=== PATIENT | female | born 1960 | race African-American/Black ===

== ENCOUNTER 2018-01-29 15:53 | Inpatient (IN) | payer OTHER, BC ==
[2018-01-29 17:06] LABS: Absolute Lymphocytes (CBC) 0.6 K/uL (0.7-4.9); Absolute Monocytes 0.9 K/uL (0.1-1.3); Absolute Neutrophil 7.9 K/uL (1.8-8.0); Basophils % 0.9 % (0-1.3); Eosinophils % 4.6 % (0-4.4); Hematocrit 34.2 % (36.0-45.0); Lymphocytes % 6.4 % (15.3-44.8); MCH 26.3 pg (27.0-35.0); MCV 80.4 fL (80-100); MPV 8.6 fL (7.6-11.3); Monocytes % 8.7 % (3.3-12.3); RBC Red Blood Cell Count 4.26 M/uL (3.86-4.86)
[2018-01-29 17:09] LABS: Protime INR 1.13
[2018-01-29 17:14] LABS: Potassium 3.2 mEq/L (3.6-5.0)
[2018-01-29 17:20] LABS: Albumin 3.3 g/dL (3.2-5.5); Bilirubin Direct 0.1 mg/dL (0-0.2); Bilirubin Total 0.7 mg/dL (0.3-1.2); Magnesium 1.9 mg/dL (1.8-2.5); Protein, Total 6.8 g/dL (6.0-8.3)
--- NOTE | 2018-01-29 17:58 | RAD REPORT ---
EXAM DESCRIPTION: RAD - Chest Single View - 01/29/2018 5:39 pm CLINICAL HISTORY: Chest pain. COMPARISON: 10/23/2017 FINDINGS: Portable technique limits examination quality. Mild interstitial pulmonary edema seen. The heart is mildly enlarged in size. No displaced fractures. IMPRESSION: Mild CHF versus volume overload pattern.
[2018-01-29 18:19] LABS: CKMB Creatine Kinase MB 3.8 ng/ml (0.3-4.0)
--- NOTE | 2018-01-29 18:19 | RAD REPORT ---
EXAM DESCRIPTION: CT - Head Brain Wo Cont - 01/29/2018 6:07 pm CLINICAL HISTORY: Altered consciousness COMPARISON: 08/12/2013, 02/21/2010 TECHNIQUE: All CT scans are performed using dose optimization technique as appropriate and may inclu de automated exposure control or mA/KV adjustment according to patient size. FINDINGS: No intracranial hemorrhage, hydrocephalus or extra-axial fluid collection.Moderate general ized brain atrophy is present with moderate periventricular and deep white matter chronic microvascul ar ischemic changes.No areas of brain edema or evidence of midline shift. 8 mm hyperdensity in the ci rcle of [place] region appears stable as far back as a 2009 study. The paranasal sinuses and mastoids are clear. The calvarium is intact. IMPRESSION: No acute intracranial abnormality.
--- NOTE | 2018-01-29 18:49 | EDPHYS ---
Physician Documentation [facility] Name: Mulu Hutson Age: 57 yrs Sex: Female : 1960 Arrival Date: 01/29/2018 Time: 15:58 Bed 5 Private MD: ED Physician Giovanni Griffin HPI: 01/29 16:24 This 57 yrs old Black Female presents to ER via EMS with complaints of Leg Pain - Right.angelito 16:24 The patient presents with pain, that is chronic. The complaints affect the medial angelito aspect of right calf. Context: The problem was sustained at an unknown site. Onset: The symptoms/episode began/occurred 5 day(s) ago. Modifying factors: The symptoms are alleviated by nothing. the symptoms are aggravated by nothing. Associated signs and symptoms: The patient has no apparent associated signs or symptoms. Treatment prior to arrival includes: no previous treatment. ams, after dialysis. Historical: - Allergies: 16:05 Alprazolam; sv 16:05 Aspirin; sv 16:05 Betadine; sv 16:05 Codeine; sv 16:05 Morphine; sv 16:05 PENICILLINS; sv 16:05 Sulfa (Sulfonamide Antibiotics); sv 16:05 Tegretol; sv 16:05 Zantac; sv - PMHx: 16:05 Cutaneous abscess of right lower limb; Diabetes - IDDM; Dialysis; Hypothyroidism; sv - PSHx: 16:05 kidney transplants; Appendectomy; Cholecystectomy; sv - Immunization history:: Adult Immunizations up to date. - Family history:: not pertinent. - Social history:: Smoking status: Patient/guardian denies using tobacco. ROS: 16:24 Constitutional: Negative for fever, chills, and weight loss, Eyes: Negative for injury, angelito pain, redness, and discharge, ENT: Negative for injury, pain, and discharge, Neck: Negative for injury, pain, and swelling, Cardiovascular: Negative for chest pain, palpitations, and edema, Respiratory: Negative for shortness of breath, cough, wheezing, and pleuritic chest pain, Abdomen/GI: Negative for abdominal pain, nausea, vomiting, diarrhea, and constipation, Back: Negative for injury and pain, : Negative for injury, bleeding, discharge, and swelling, Skin: Negative for injury, rash, and discoloration, Psych: Negative for depression, anxiety, suicide ideation, homicidal ideation, and hallucinations, Allergy/Immunology: Negative for hives, rash, and allergies, Endocrine: Negative for neck swelling, polydipsia, polyuria, polyphagia, and marked weight changes, Hematologic/Lymphatic: Negative for swollen nodes, abnormal bleeding, and unusual bruising. 16:24 : Positive for 16:24 MS/extremity: Positive for laceration, of the medial aspect of right calf. 16:24 Neuro: Positive for altered mental status, resolved. Exam: 16:24 Constitutional: This is a well developed, well nourished patient who is awake, alert, angelito and in no acute distress. Head/Face: Normocephalic, atraumatic. Eyes: Pupils equal round and reactive to light, extra-ocular motions intact. Lids and lashes normal. Conjunctiva and sclera are non-icteric and not injected. Cornea within normal limits. Periorbital areas with no swelling, redness, or edema. ENT: Nares patent. No nasal discharge, no septal abnormalities noted. Tympanic membranes are normal and external auditory canals are clear. Oropharynx with no redness, swelling, or masses, exudates, or evidence of obstruction, uvula midline. Mucous membranes moist. Neck: Trachea midline, no thyromegaly or masses palpated, and no cervical lymphadenopathy. Supple, full range of motion without nuchal rigidity, or vertebral point tenderness. No Meningismus. Chest/axilla: Normal chest wall appearance and motion. Nontender with no deformity. No lesions are appreciated. Cardiovascular: Regular rate and rhythm with a normal S1 and S2. No gallops, murmurs, or rubs. Normal PMI, no JVD. No pulse deficits. Respiratory: Lungs have equal breath sounds bilaterally, clear to auscultation and percussion. No rales, rhonchi or wheezes noted. No increased work of breathing, no retractions or nasal flaring. Abdomen/GI: Soft, non-tender, with normal bowel sounds. No distension or tympany. No guarding or rebound. No evidence of tenderness throughout. Back: No spinal tenderness. No costovertebral tenderness. Full range of motion. Skin: Warm, dry with normal turgor. Normal color with no rashes, no lesions, and no evidence of cellulitis. MS/ Extremity: Pulses equal, no cyanosis. Neurovascular intact. Full, normal range of motion. Neuro: Awake and alert, GCS 15, oriented to person, place, time, and situation. Cranial nerves II-XII grossly intact. Motor strength 5/5 in all extremities. Sensory grossly intact. Cerebellar exam normal. Normal gait. Psych: Awake, alert, with orientation to person, place and time. Behavior, mood, and affect are within normal limits. 16:26 Musculoskeletal/extremity: Tendon exam: DVT Exam: No signs of deep vein thrombosis. no angelito pain, no swelling, no tenderness, negative Homans' sign noted on exam, no appreciated bluish discoloration, no erythema, no increased warmth. 17:34 Musculoskeletal/extremity: 2.5 x 2.5 medial wound, mild exudate, good heaiing, no [facility] active bleeding. Vital Signs: 16:00 BP 143 / 88; Pulse 105; Resp 19; Pulse Ox 97% ; sv 16:05 Temp 98.4(O); sv 17:03 BP 146 / 84; Pulse 101; Resp 14; Pulse Ox 100% ; mh5 18:14 BP 143 / 82; Pulse 106 MON; Resp 20; Pulse Ox 99% on R/A; sv 18:56 BP 148 / 95; Pulse 110; Resp 20; Pulse Ox 99% ; sv 19:29 Weight 84.5 kg; jd3 19:32 BP 142 / 74; Pulse 95; Resp 17 S; Pulse Ox 99% on R/A; Pain 0/10; jd3 20:13 BP 138 / 74; Pulse 94; Resp 19 S; Pulse Ox 98% on R/A; Pain 0/10; jd3 Procedures: 20:00 Peripheral line: by aseptic technique a peripheral line was placed in the left external angelito jugular vein. MDM: 16:12 Patient medically screened. [facility] 16:26 Data reviewed: vital signs, nurses notes, lab test result(s), EKG, radiologic studies, [facility] plain films. 01/29 16:24 Order name: Basic Metabolic Panel; Complete Time: 18:23 [facility] 01/29 16:24 Order name: BNP; Complete Time: 18:23 [facility] 01/29 16:24 Order name: CBC with Diff; Complete Time: 17:33 [facility] 01/29 16:24 Order name: Ckmb; Complete Time: 18:23 [facility] 01/29 16:24 Order name: CPK; Complete Time: 18:23 [facility] 01/29 16:24 Order name: LFT's; Complete Time: 18:23 [facility] 01/29 16:24 Order name: Magnesium; Complete Time: 18:23 [facility] 01/29 16:24 Order name: PT-INR; Complete Time: 17:33 [facility] 01/29 16:24 Order name: Ptt, Activated; Complete Time: 17:33 [facility] 01/29 16:24 Order name: Troponin (emerg Dept Use Only); Complete Time: 18:23 [facility] 01/29 16:24 Order name: XRAY Chest (1 view); Complete Time: 18:23 [facility] 01/29 16:24 Order name: Urine Culture [facility] 01/29 17:53 Order name: TSH ag 01/29 17:55 Order name: Head Brain Wo Cont; Complete Time: 18:23 [facility] 01/29 16:24 Order name: EKG; Complete Time: 16:25 [facility] 01/29 16:24 Order name: Cardiac monitoring; Complete Time: 16:27 [facility] 01/29 16:24 Order name: EKG - Nurse/Tech; Complete Time: 18:08 [facility] 01/29 16:24 Order name: IV Saline Lock; Complete Time: 16:28 [facility] 01/29 16:24 Order name: Labs collected and sent; Complete Time: 18:08 [facility] 01/29 16:24 Order name: O2 Per Protocol; Complete Time: 16:28 [facility] 01/29 16:24 Order name: O2 Sat Monitoring; Complete Time: 16:28 [facility] 01/29 18:54 Order name: CONS Physician Consult [facility] 01/29 18:54 Order name: CONS Physician Consult [facility] 01/29 18:54 Order name: Echo with Doppler [facility] 01/29 16:24 Order name: Wound Care; Complete Time: 18:08 [facility] Administered Medications: 19:31 Drug: Lopressor 5 mg Route: IVP; Site: left jugular; jd3 20:01 Follow up: Response: No adverse reaction ak1 19:31 Drug: Lopressor (metoprolol TARTRATE) 50 mg Route: PO; jd3 19:51 Follow up: Response: No adverse reaction ak1 19:31 Drug: Heparin (PR-Bolus No thrombolytic) - HEParin 60 units/kg {Co-Signature: ak1 jd3 (Angelica Arreaga RN).} Route: IVP; Site: left jugular; 19:51 Follow up: Response: No adverse reaction ak1 19:31 Drug: Heparin (PR Drip) 12 units/kg/hr - (HEParin 32343 units, D5W 500 ml) jd3 {Co-Signature: ak1 (Angelica Arreaga RN).} Route: IV; Rate: calculated rate; Site: left jugular; 20:01 Follow up: IV Status: Infusion continued upon admission ak1 19:31 Drug: ProTONIX 40 mg Route: IVP; Site: left jugular; jd3 19:50 Follow up: Response: No adverse reaction ak1 Disposition: 01/29/18 18:48 Hospitalization ordered by Augie Sam for Inpatient Admission. Preliminary diagnosis are Atrial fibrillation and flutter, Syncope and collapse, Weakness, Type 1 diabetes mellitus, Hypokalemia, End stage renal disease. - Bed requested for Telemetry/MedSurg (observation). - Status is Inpatient Admission. jd3 - Condition is Fair. - Problem is new. - Symptoms have improved. UTI on Admission? No Signatures: Dispatcher [employer] Sepideh Roman, Giovanni Gibson RN, MD MD cha Garcia, Cindy, RN RN cg Davies, Jonathon, RN RN jd3 Krenek, Angelica MENJIVAR ak1 Angelica Arreaga RN ak1
--- NOTE | 2018-01-29 18:49 | ER ---
Nurse's Notes [facility] Name: Mulu Hutson Age: 57 yrs Sex: Female : 1960 Arrival Date: 01/29/2018 Time: 15:58 Bed 5 Private MD: Diagnosis: Atrial fibrillation and flutter;Syncope and collapse;Weakness;Type 1 diabetes mellitus;Hypokalemia;End stage renal disease Presentation: 01/29 15:51 Presenting complaint: EMS states: RLL wound pain. Pt sees Dr Johnson for wound cleaning. sv Dialysis staff stated pt was lethargic and confused. They took off 2.1 kg at HD. A \T\ O x1 person. BS -310, AFib with RVR 90-110s. Pt is asymptomatic. Transition of care: LJ dialysis. Onset of symptoms was January 29, 2018. Care prior to arrival: None. 15:51 Method Of Arrival: EMS: [facility] sv 15:51 Acuity: ALLA 3 sv Triage Assessment: 15:55 General: Appears in no apparent distress. comfortable, obese, well developed, Behavior sv is calm, cooperative, appropriate for age. Pain: Complains of pain in medial aspect of right calf Pain currently is 5 out of 10 on a pain scale. Is intermittent. EENT: No signs and/or symptoms were reported regarding the EENT system. Neuro: Level of Consciousness is awake, alert, obeys commands, Oriented to person, place, time, situation, Moves all extremities. Cardiovascular: Reports. Respiratory: Respiratory effort is even, unlabored, Respiratory pattern is regular, symmetrical. Derm: Skin is normal, black, Pt has dressing to the RLE that was placed by the [facility]. Dressing appears dry and intact. Musculoskeletal: No signs and/or symptoms reported regarding the musculoskeletal system. Historical: - Allergies: 16:05 Alprazolam; sv 16:05 Aspirin; sv 16:05 Betadine; sv 16:05 Codeine; sv 16:05 Morphine; sv 16:05 PENICILLINS; sv 16:05 Sulfa (Sulfonamide Antibiotics); sv 16:05 Tegretol; sv 16:05 Zantac; sv - PMHx: 16:05 Cutaneous abscess of right lower limb; Diabetes - IDDM; Dialysis; Hypothyroidism; sv - PSHx: 16:05 kidney transplants; Appendectomy; Cholecystectomy; sv - Immunization history:: Adult Immunizations up to date. - Family history:: not pertinent. - Social history:: Smoking status: Patient/guardian denies using tobacco. Screenin:05 Abuse screen: Denies threats or abuse. Denies injuries from another. Nutritional sv screening: No deficits noted. Tuberculosis screening: No symptoms or risk factors identified. Fall Risk None identified. Assessment: 17:21 Reassessment: Patient appears in no apparent distress at this time. No changes from sv previously documented assessment. Patient and/or family updated on plan of care and expected duration. Pain level reassessed. Patient is alert, oriented x 3, equal unlabored respirations, skin warm/dry/pink. 18:30 Reassessment: Patient appears in no apparent distress at this time. Patient and/or sv family updated on plan of care and expected duration. Pain level reassessed. Patient is alert, oriented x 3, equal unlabored respirations, skin warm/dry/pink. 19:32 Reassessment: Patient appears in no apparent distress at this time. No changes from jd3 previously documented assessment. Patient and/or family updated on plan of care and expected duration. Pain level reassessed. Patient is alert, oriented x 3, equal unlabored respirations, skin warm/dry/pink. Patient denies pain at this time. Vital Signs: 16:00 BP 143 / 88; Pulse 105; Resp 19; Pulse Ox 97% ; sv 16:05 Temp 98.4(O); sv 17:03 BP 146 / 84; Pulse 101; Resp 14; Pulse Ox 100% ; mh5 18:14 BP 143 / 82; Pulse 106 MON; Resp 20; Pulse Ox 99% on R/A; sv 18:56 BP 148 / 95; Pulse 110; Resp 20; Pulse Ox 99% ; sv 19:29 Weight 84.5 kg; jd3 19:32 BP 142 / 74; Pulse 95; Resp 17 S; Pulse Ox 99% on R/A; Pain 0/10; jd3 20:13 BP 138 / 74; Pulse 94; Resp 19 S; Pulse Ox 98% on R/A; Pain 0/10; jd3 ED Course: 15:58 Patient arrived in ED. sv 15:59 Sepideh Angelo RN is Primary Nurse. sv 16:02 Triage completed. sv 16:05 Arm band placed on right wrist. sv 16:06 Patient has correct armband on for positive identification. Placed in gown. Bed in low sv position. Call light in reach. Side rails up X2. child monitor on. Pulse ox on. NIBP on. Door closed. Head of bed elevated. 16:11 Giovanni Griffin MD is Attending Physician. angelito 16:40 Missed attempt(s): 24 gauge in left hand. Bleeding controlled, band aid applied, sv catheter tip intact. 16:44 EKG done, by technical delivery manager. reviewed by Giovanni Griffin MD. at1 16:50 Initial lab(s) drawn, by ED staff, sent to lab. Inserted saline lock: 20 gauge in left sv EJ, using aseptic technique. ,using aseptic technique. done by Dr Griffin Blood collected. 17:37 XRAY Chest (1 view) In Process Unspecified. EDMS 18:07 Head Brain Wo Cont In Process Unspecified. EDMS 18:08 CT completed. Patient tolerated procedure well. Patient moved to CT via stretcher. sc Patient moved back from CT. 18:44 Augie Sam MD is Hospitalizing Provider. angelito 19:03 Report given to Samuel MENJIVAR. sv 19:05 Primary Nurse role handed off by Sepideh Angelo RN sv 19:29 Samuel Chase RN is Primary Nurse. jd3 19:46 No provider procedures requiring assistance completed. ak1 19:48 Patient admitted, IV remains in place. ak1 Administered Medications: 19:31 Drug: Lopressor 5 mg Route: IVP; Site: left jugular; jd3 20:01 Follow up: Response: No adverse reaction ak1 19:31 Drug: Lopressor (metoprolol TARTRATE) 50 mg Route: PO; jd3 19:51 Follow up: Response: No adverse reaction ak1 19:31 Drug: Heparin (HI-Bolus No thrombolytic) - HEParin 60 units/kg {Co-Signature: ak1 jyunior (Angelica Arreaga RN).} Route: IVP; Site: left jugular; 19:51 Follow up: Response: No adverse reaction ak1 19:31 Drug: Heparin (HI Drip) 12 units/kg/hr - (HEParin 52556 units, D5W 500 ml) jd3 {Co-Signature: akHenri (Angelica Arreaga RN).} Route: IV; Rate: calculated rate; Site: left jugular; 20:01 Follow up: IV Status: Infusion continued upon admission ak1 19:31 Drug: ProTONIX 40 mg Route: IVP; Site: left jugular; jd3 19:50 Follow up: Response: No adverse reaction ak1 Outcome: 18:48 Decision to Hospitalize by Provider. angelito 19:48 Admitted to Tele accompanied by tech, via stretcher, room 427. ak1 19:48 Condition: stable 19:48 Instructed on the need for admit. 20:20 Admitted to Tele with chart, Report called to Naveen chow 20:49 Patient left the ED. jyunior Signatures: Dispatcher [employer] EDMS Sepideh Angelo RN Giovanni Gibson MD MD cha gonzales, Amanda, operations and maintenance manager EKG Tat1 Angelica Arreaga RN RN ak1 Moose Tapia Maria mh5 Davies, Jonathon, RN RN jd3 Amber Krenek RN ak1 Corrections: (The following items were deleted from the chart) 19:48 19:46 Patient transferred, IV remains in place. ak1 ak1
[2018-01-29] MEDS ORDERED: D50W 25 GM/50 ML SYRINGE IV PRN (18:55)
[2018-01-29] MEDS ORDERED: GLUCAGON 1 MG/VIAL IM PRN (18:55)
[2018-01-29] MEDS ORDERED: ACETAMINOPHEN 500 MG TAB PO PRN (19:01)
[2018-01-29] MEDS ORDERED: MAGNESIUM HYDROXIDE 8% 30 ML PO PRN (19:01)
[2018-01-29] MEDS ORDERED: ONDANSETRON 4 MG/2 ML VIAL IV PRN (19:01)
[2018-01-29] MEDS ORDERED: HEPARIN/D5W 25,000 UNIT/500 ML BAG IV ONE (19:11)
[2018-01-29] MEDS ORDERED: HEPARIN 5000 UNIT/ML 1 ML VIAL ONE (19:11)
[2018-01-29] MEDS ORDERED: PANTOPRAZOLE 40 MG INJ ONE (19:13)
[2018-01-29] MEDS ORDERED: METOPROLOL TARTRATE 5 MG/5 ML INJ IV ONE (19:13)
[2018-01-29] MEDS ORDERED: METOPROLOL TAR 50 MG TAB ONE (19:13)
[2018-01-29] MEDS: IPRATROPIUM BROM 0.5MG/2.5ML NEB SCH (20:51)
[2018-01-29] MEDS: ALBUTEROL 2.5 MG/3 ML NEB SOL NEB SCH (20:51)
[2018-01-29] MEDS: INSULIN -REGULAR HUMAN 50 UNIT/0.5 ML ML SQ SCH (21:00)
[2018-01-29 21:02] VITALS: O2SAT 98
[2018-01-29 21:29] VITALS: BMI 33.0
[2018-01-30] MEDS: ALBUTEROL 2.5 MG/3 ML NEB SOL NEB SCH ×4 (01:44→20:00)
[2018-01-30] MEDS: IPRATROPIUM BROM 0.5MG/2.5ML NEB SCH ×2 (01:44→07:12)
[2018-01-30] MEDS ORDERED: NEPRO SHAKE 237 ML CAN PO PRN (02:40)
[2018-01-30] MEDS ORDERED: TRAMADOL 37.5mg/APAP 325mg PER TAB PO PRN (02:40)
[2018-01-30] MEDS ORDERED: ACETAMINOPHEN 500 MG TAB PO PRN (02:40)
[2018-01-30] MEDS ORDERED: LIOTHYRONINE SOD 5 MCG TAB PO SCH (03:00)
[2018-01-30] MEDS ORDERED: METOPROLOL TAR 50 MG TAB PO SCH ×2 (03:09→09:00)
[2018-01-30] MEDS: APIXABAN 2.5 MG TABLET PO SCH ×3 (05:16→21:38)
[2018-01-30 06:05] LABS: Absolute Monocytes 0.7 K/uL (0.1-1.3); Absolute Neutrophil 5.5 K/uL (1.8-8.0); Basophils % 0.8 % (0-1.3); Eosinophils % 7.2 % (0-4.4); Hematocrit 33.1 % (36.0-45.0); Lymphocytes % 12.3 % (15.3-44.8); MCV 81.8 fL (80-100); MPV 9.7 fL (7.6-11.3); RBC Red Blood Cell Count 4.04 M/uL (3.86-4.86)
--- NOTE | 2018-01-30 06:28 | P.HP ---
Certification for Inpatient Patient admitted to: Observation With expected LOS: <2 Midnights Patient will require the following post-hospital care: None Practitioner: I am a practitioner with admitting privileges, knowledge of patient current condition, hospital course, and medical plan of care. Services: Services provided to patient in accordance with Admission requirements found in Title 42 Section 412.3 of the Code of Federal Regulations Patient History Date of Service: 01/29/18 Reason for admission: Right lower extremity pain History of Present Illness: Patient is a 57-year-old female came to the hospital with pain in her right leg. This is chronic. She says it has been going on for quite a while and she gets wound care per Dr. Johnson. She has a dressing on her right leg. There is no significant swelling. She is feels pain that is been going on for quite a while. She also was lethargic during dialysis. She had 2.1 m removed. She became lightheaded and had a near syncopal event. She was brought into the emergency room for further evaluation. In the emergency room she was found to be in AFib but her rate was fairly well controlled. Hemodynamically she was stable. Patient was admitted to the hospital for further evaluation. Allergies alprazolam [From Xanax] Allergy (Verified 11/16/14 08:40) UNK aspirin Allergy (Verified 11/16/14 08:40) UNK carbamazepine [From Tegretol] Allergy (Verified 11/16/14 08:40) UNK codeine Allergy (Verified 11/16/14 08:40) UNK morphine Allergy (Verified 11/16/14 08:40) UNK Penicillins Allergy (Verified 11/16/14 08:40) unknown povidone-iodine [From Betadine] Allergy (Verified 11/16/14 08:40) unknown ranitidine HCl [From Zantac] Allergy (Verified 11/16/14 08:40) UNK soap [From Betadine] Allergy (Verified 11/16/14 08:40) unknown Sulfa (Sulfonamide Antibiotics) Allergy (Verified 11/16/14 08:40) UNK aspirin Allergy (Uncoded 11/16/14 08:40) Unknown catfish Allergy (Uncoded 11/16/14 08:40) unknown codeine Allergy (Uncoded 11/16/14 08:40) Unknown morphine Allergy (Uncoded 11/16/14 08:40) Unknown Home Medications: Apixaban [Eliquis *] 1 tab PO BID 01/30/18 Calcium Carbonate [Tums Regular*] 4 tab PO BEDTIME 01/30/18 Cholecalciferol (Vitamin D3) [Vitamin D3] 1 cap PO DAILY 01/30/18 Cinacalcet HCl [Sensipar] 1 tab PO DAILY 01/30/18 Clarithromycin [Biaxin] 1 tab PO BID 01/30/18 Duloxetine HCl [Duloxetine HCl] 1 cap PO DAILY 01/30/18 Hydrocortisone [Cortef*] 1 tab PO BEDTIME 01/30/18 Hydrocortisone [Cortef*] 2 tab PO DAILY 01/30/18 Liothyronine Sodium [Cytomel] 1 tab PO DAILY 01/30/18 Metoprolol Tartrate [Lopressor] 1 tab PO BID 01/30/18 Nepro Shake [Nepro*] 1 can PO DAILY 01/30/18 Sevelamer Carbonate [Renvela*] 2 tab PO TID 01/30/18 Tramadol HCl/Acetaminophen [Tramadol-Acetaminophn 37.5-325] 1 tab PO Q6HP PRN - Past Medical/Surgical History Has patient received pneumonia vaccine in the past: No Diabetic: Yes -: Kidney disease -: Diabetes-IDDM -: Hypothyroidism -: HTN -: Depression -: Periodontitis, 1990 -: Periodontitis, 1990 -: Pancreatitis, 1997 -: Appy, 1985 -: Choley, 1995 -: Periodontitis, 1990 -: Kidney transplants, 1976 & 1996 - Family History Mother Medical History: Cancer - Social History Smoking Status: Never smoker Alcohol use: No CD- Drugs: No Caffeine use: No Place of Residence: Home Review of Systems 10-point ROS is otherwise unremarkable Physical Examination - Vital Signs Temperature: 98.0 F Blood Pressure: 115/64 Pulse: 78 Respirations: 18 Pulse Ox (%): 97 - Physical Exam General: Alert, In no apparent distress, Oriented x3 HEENT: Atraumatic, PERRLA, Mucous membr. moist/pink, EOMI, Sclerae nonicteric Neck: Supple, 2+ carotid pulse no bruit, No LAD, Without JVD or thyroid abnormality Respiratory: Clear to auscultation bilaterally, Normal air movement Cardiovascular: Irregular heart rate/rhythm, Abnormal S1 S2, Systolic murmur Gastrointestinal: Normal bowel sounds, Soft and benign, Non-distended, No tenderness Musculoskeletal: No clubbing, No swelling, Tenderness Integumentary: Tenderness/swelling Neurological: Normal tone, Sensation intact, Cranial nerves 3-12 intact, Normal affect, Abnormal gait, Abnormal strength Lymphatics: No axilla or inguinal lymphadenopathy - Studies Laboratory Data (last 24 hrs) 01/29/18 16:50: PT 13.4 H, INR 1.13, APTT 28.6 01/29/18 16:50: WBC 10.0, Hgb 11.2 L, Hct 34.2 L, Plt Count 149 L 01/29/18 16:50: B-Natriuretic Peptide 1461 H 01/29/18 16:50: Sodium 134 L, Potassium 3.2 L, BUN 34 H, Creatinine 3.69 H, Glucose 290 H, Magnesium 1.9, Total Bilirubin 0.7, AST 19, ALT 14, Alkaline Phosphatase 467 H Assessment & Plan - Problems (Diagnosis) (1) Near syncope Current Visit: Yes Status: Acute (2) Atrial fibrillation with rapid ventricular response Onset Date: 10/25/17 Current Visit: No Status: Acute (3) Diabetes mellitus Onset Date: 10/25/17 Current Visit: No Status: Chronic (4) ESRD (end stage renal disease) on dialysis Onset Date: 10/25/17 Current Visit: No Status: Chronic (5) Non-healing surgical wound Current Visit: No Status: Chronic - Advance Directives Does patient have a Living Will: No Does patient have a Durable POA for Healthcare: No
[2018-01-30 07:07] LABS: Albumin 2.8 g/dL (3.2-5.5); Bilirubin Total 0.5 mg/dL (0.3-1.2); Phosphorus 3.8 mg/dL (2.5-4.3); Potassium 3.7 mEq/L (3.6-5.0); Protein, Total 5.9 g/dL (6.0-8.3)
[2018-01-30 07:08] LABS: Thyroid Stimulating Hormone 0.02 uIU/mL (0.34-5.60)
[2018-01-30] MEDS: INSULIN -REGULAR HUMAN 50 UNIT/0.5 ML ML SQ SCH ×5 (07:30→21:00)
[2018-01-30] MEDS: INSULIN DETEMIR 100 UNIT/1 ML INSULIN SQ SCH ×2 (08:00→09:04)
[2018-01-30] MEDS: SEVELAMER CARBONATE 800 MG TABLET PO SCH ×4 (08:00→16:43)
--- NOTE | 2018-01-30 08:00 | EKG ---
Test Date: 2018-01-29 Test Time: 16:38:54 Gynecological Assistant: FERMIN MEASUREMENT RESULTS: Intervals: Rate: 99 LA: QRSD: 78 QT: 346 QTc: 444 [place]: P: LA: QRS: 44 T: 147 INTERPRETIVE STATEMENTS: Atrial fibrillation with premature ventricular or aberrantly conducted complexes T wave abnormality, consider lateral ischemia Abnormal ECG Compared to ECG 10/24/2017 06:57:51 Ventricular premature complex(es) now present T-wave abnormality now present Possible ischemia now present Sinus rhythm no longer present Prolonged QT interval no longer present Electronically Signed On 01-30-18 07:59:09 CDT by Thor Obrien
[2018-01-30] MEDS ORDERED: CLARITHROMYCIN 500 MG TABLET PO SCH (09:00)
[2018-01-30] MEDS ORDERED: APIXABAN 2.5 MG TABLET PO SCH (09:00)
--- NOTE | 2018-01-30 09:16 | RAD REPORT ---
EXAM DESCRIPTION: RAD - Abdomen Acute Series - 01/30/2018 9:00 am CLINICAL HISTORY: Abdominal pain COMPARISON: None. FINDINGS: Frontal view of the chest demonstrates clear lungs. No subdiaphragmatic free air. The hear t is mildly enlarged in size. Tortuous thoracic aorta seen. Multiple views of the abdomen demonstrate a nonobstructive bowel-gas pattern. Surgical clips are pres ent on the right. Marked chronic dysplastic changes with dislocation of the left hip seen. IMPRESSION: No acute finding is demonstrated.
--- NOTE | 2018-01-30 10:42 | P.PN ---
Subjective Date of Service: 01/30/18 Primary Care Provider: Dr. Cordero; Nephrology-Dr. Quintanilla Chief Complaint: Right lower extremity pain Subjective: Improving Physical Examination - Vital Signs Temperature: 97.3 F Blood Pressure: 136/66 Pulse: 73 Respirations: 18 Pulse Ox (%): 100 - Physical Exam General: Alert, In no apparent distress, Oriented x3, Cooperative HEENT: Atraumatic Neck: Supple Respiratory: Clear to auscultation bilaterally, Normal air movement Cardiovascular: Regular rate/rhythm Gastrointestinal: Normal bowel sounds, Soft and benign, Non-distended Musculoskeletal: No erythema, No tenderness, No warmth Integumentary: No erythema, No warmth, No cyanosis, Other (Bandage to the right lower ext) Neurological: Normal speech, Normal strength at 5/5 x4 extr, Normal tone, Normal affect - Studies Laboratory Data (last 24 hrs) 01/29/18 16:50: PT 13.4 H, INR 1.13, APTT 28.6 01/29/18 16:50: WBC 10.0, Hgb 11.2 L, Hct 34.2 L, Plt Count 149 L 01/29/18 16:50: B-Natriuretic Peptide 1461 H 01/29/18 16:50: Sodium 134 L, Potassium 3.2 L, BUN 34 H, Creatinine 3.69 H, Glucose 290 H, Magnesium 1.9, Total Bilirubin 0.7, AST 19, ALT 14, Alkaline Phosphatase 467 H Medications List Reviewed: Yes Assessment & Plan - Problems (Diagnosis) (1) Hypertension Current Visit: Yes Status: Chronic Plan: Patient on metoprolol. Will continue with his medication. Qualifiers: Hypertension type: essential hypertension Qualified Code(s): I10 - Essential (primary) hypertension (2) Hypothyroidism Current Visit: Yes Status: Chronic Plan: Will verify and restart home medication Qualifiers: Hypothyroidism type: unspecified Qualified Code(s): E03.9 - Hypothyroidism , unspecified (3) Adrenal insufficiency Current Visit: Yes Status: Chronic Plan: Will continue with her steroid medication. (4) Near syncope Onset Date: 01/30/18 Current Visit: Yes Status: Acute Plan: Patient with near syncope. Patient now back to baseline. Patient came in with atrial fibrillation with RVR. Now in normal sinus rhythm. Cardiology has started Multaq. Patient will need to be monitored overnight. Possible discharge in the morning. Patient on chronic anti coagulation therapy. Will continue with this. Will discuss further with cardiology and nephrology. Echo pending. (5) Atrial fibrillation with rapid ventricular response Onset Date: 01/30/18 Current Visit: No Status: Acute Plan: Patient with history of atrial fibrillation. Rate now controlled and in normal sinus rhythm. Cardiology started Multaq. Will continue to monitor patient on this medication. Patient also on metoprolol and chronic anti coagulation therapy. Will discuss with cardiology. (6) Anemia Onset Date: 10/25/17 Current Visit: No Status: Chronic Plan: This is likely of chronic disease. Will monitor closely. Qualifiers: Anemia type: due to chronic kidney disease Chronic kidney disease stage: on chronic dialysis Qualified Code(s): N18.6 - End stage renal disease; D63.1 - Anemia in chronic kidney disease; D63.1 - Anemia in chronic kidney disease; Z99.2 - Dependence on renal dialysis; Z99.2 - Dependence on renal dialysis; Z99.2 - Dependence on renal dialysis; Z99.2 - Dependence on renal dialysis (7) Diabetes mellitus Onset Date: 01/30/18 Current Visit: No Status: Chronic Plan: Will continue with basal insulin. Will monitor closely. Sliding scale in place. Qualifiers: Diabetes mellitus type: type 2 Diabetes mellitus predatory animal exterminator insulin use: with predatory animal exterminator use Diabetes mellitus complication status: with kidney complications Diabetes mellitus complication detail: with chronic kidney disease Chronic kidney disease stage: on chronic dialysis Qualified Code(s) : E11.22 - Type 2 diabetes mellitus with diabetic chronic kidney disease; N18.6 - End stage renal disease; N18.6 - End stage renal disease; N18.6 - End stage renal disease; N18.6 - End stage renal disease; Z79.4 - terminal computer operator (current) use of insulin; Z79.4 - terminal computer operator (current) use of insulin; Z79.4 - terminal computer operator ( current) use of insulin; Z79.4 - terminal computer operator (current) use of insulin; Z99.2 - Dependence on renal dialysis; Z99.2 - Dependence on renal dialysis; Z99.2 - Dependence on renal dialysis; Z99.2 - Dependence on renal dialysis (8) ESRD (end stage renal disease) on dialysis Onset Date: 01/30/18 Current Visit: No Status: Chronic Plan: Patient gets dialysis Tuesdays, and Saturdays. Nephrology consulted. Will discuss with nephrology. (9) Non-healing surgical wound Onset Date: 01/30/18 Current Visit: No Status: Chronic Plan: Patient is seen by surgery as an outpatient. Patient to continue with wound care. Will verify to see if the patient is taking antibiotic therapy. Qualifiers: Encounter type: subsequent encounter Qualified Code(s): T81.89XD - Other complications of procedures, not elsewhere classified, subsequent encounter Discharge Plan: Home Plan to discharge in: 24 Hours Time Spent Managing Pts Care (In Minutes): 55
[2018-01-30] MEDS: LIOTHYRONINE SOD 5 MCG TAB PO SCH (11:27)
[2018-01-30] MEDS: VITAMIN D 1000 UNIT TAB PO SCH (11:27)
[2018-01-30] MEDS: HYDROCORTISONE 10 MG TAB PO SCH ×3 (11:27→21:39)
[2018-01-30] MEDS ORDERED: EPOETIN ALFA 10,000 UNIT/ML VIAL IV SCH (12:00)
--- NOTE | 2018-01-30 12:36 | EKG ---
Test Date: 2018-01-30 Test Time: 10:26:05 Clinical Research Specialist: FERMIN MEASUREMENT RESULTS: Intervals: Rate: 71 LA: 172 QRSD: 80 QT: 414 QTc: 449 [place]: P: 53 LA: 172 QRS: 32 T: 137 INTERPRETIVE STATEMENTS: Normal sinus rhythm T wave abnormality, consider lateral ischemia Abnormal ECG Compared to ECG 01/29/2018 16:38:54 Atrial fibrillation no longer present Ventricular premature complex(es) no longer present T-wave abnormality still present Possible ischemia still present Electronically Signed On 01-30-18 12:36:08 CDT by Thor Obrien
[2018-01-30] MEDS: CINACALCET HCL 30 MG TAB PO SCH (12:52)
[2018-01-30] MEDS ORDERED: INSULIN DETEMIR 100 UNIT/1 ML INSULIN SQ ONE (13:15)
[2018-01-30] MEDS ORDERED: INSULIN -REGULAR HUMAN 50 UNIT/0.5 ML ML SQ ONE (13:15)
[2018-01-30 13:22] LABS: A1c Component 0.63 mg/dL; Hemoglobin A1c 7.3 % (4-6.0)
[2018-01-30] MEDS ORDERED: SEVELAMER CARBONATE 800 MG TABLET PO SCH (14:00)
--- NOTE | 2018-01-30 15:30 | ECHO ---
HEIGHT: 5 ft 3 in WEIGHT: 186 lb 4.8 oz DATE OF STUDY: 01/30/[address]: Giovanni Griffin MD 2-DIMENSIONAL: YES M.MODE: YES DOPPLER: YES COLOR FLOW: YES TDS: PORTABLE: DEFINITY: BUBBLE STUDY: DIAGNOSIS: CONGESTIVE HEART FAILURE CARDIAC HISTORY: CATHERIZATION: SURGERY: PROSTHETIC VALVE: PACEMAKER: MEASUREMENTS (cm) DIASTOLIC (NORMALS) SYSTOLIC (NORMALS) IVSd 1.3 (0.6-1.2) LA Diam 3.8 (1.9-4.0) LVEF 44% LVIDd 4.0 (3.5-5.7) LVIDs 3.1 (2.0-3.5) %FS 22% LVPWd 1.3 (0.6-1.2) Ao Diam 2.5 (2.0-3.7) 2 DIMENSIONAL ASSESSMENT: RIGHT ATRIUM: NORMAL LEFT ATRIUM: NORMAL RIGHT VENTRICLE: NORMAL LEFT VENTRICLE: LEFT VENTRICULAR HYPERTROPHY TRICUSPID VALVE: NORMAL MITRAL VALVE: NORMAL PULMONIC VALVE: NORMAL AORTIC VALVE: NORMAL PERICARDIAL EFFUSION: NONE AORTIC ROOT: NORMAL LEFT VENTRICULAR WALL MOTION: NORMAL DOPPLER/COLOR FLOW: TRACE TRICUSPID REGURGITATION. NORMAL RIGHT VENTRICULAR SYSTOLIC PRESSURE. COMMENTS: NORMAL LEFT VENTRICULAR EJECTION FRACTION. LEFT VENTRICULAR SYSTOLIC PRESSURE. TRACE TRICUSPID REGURGITATION. NORMAL SINUS RHYTHM. TECHNOLOGIST: YAZ YU
[2018-01-30] MEDS ORDERED: INSULIN -REGULAR HUMAN 50 UNIT/0.5 ML ML SQ SCH (16:30)
--- NOTE | 2018-01-30 18:15 | CON ---
Additional Attending Physician: Dr. Sam. Chief Complaint: Heart racing. History Of Present Illness: Ms. Hutson is a woman, who is a chronic hemodialysis patient. She has been on hemodialysis, kidney failure for many, many years, probably in her fourth decade by now. She had a kidney transplant at 1 point and spent several years off dialysis, but the transplant failed and she is back on dialysis. She has been in our hospital a few times for atrial fib and seems to tend to get it more often during dialysis treatments. She was at dialysis yesterday when the nurses there took her vital signs. She had atrial fib. It was present on an EKG from the afternoon yesterday. She seems to be in sinus rhythm today. She is allergic to alprazolam, aspirin, carbamazepine, codeine, morphine. She has tolerated apixaban. An attempt was made to give her metoprolol and suppress the atrial fibrillation, but the metoprolol has not been successful at suppressing the atrial fibrillation. She has gone into it within just a few weeks of having it started. When she was in atrial fibrillation, her heart rate was just 99. She did not seem to be very compromised by it. Medications: Outpatient medications have been hydrocortisone, duloxetine, Biaxin, tramadol, Sensipar, calcium carbonate, cholecalciferol, metoprolol 50 b.i.d., Eliquis 2.5 b.i.d., and Renvela 1600 mg b.i.d. Social History: She uses no tobacco, no alcohol, no illegal drugs. Physical Examination: General: 5 feet 3 inches, 186 pounds. HEENT: Unremarkable. Lungs: Do not reveal crackles or wheeze. Heart: Has a regular rate and rhythm presently. The lungs have no wheezing. Abdomen: Obese. There is no mass or tenderness. Extremities: Reveal no edema. There is atrophy of both calves reminiscent of Dtbafkr-Jgnfe-Fdbbc disease. I do not know if she has been diagnosed with that. Distal pulses are absent. There does not seem to be any wound that is not healing. Her dialysis access site is in the right upper thigh. It is a graft that connects artery and vein, and there is a normal thrill in it. Impression: We should probably reduce the dose of metoprolol, perhaps taper her off it and we will give her Multaq to take in addition to the other medicine she is on. We will see if we can suppress atrial fibrillation that way. She may be a patient that it would be wiser to allow her to be in atrial fibrillation, but just anticoagulate to reduce the risk of stroke. MYAH Voice ID: [id number] Report ID: [id number] [place]
[2018-01-30] MEDS ORDERED: HYDROCORTISONE 10 MG TAB PO SCH (21:00)
[2018-01-30] MEDS ORDERED: CALCIUM CARBONATE CHEW 500MG TAB PO SCH ×2 (21:00)
[2018-01-30] MEDS: DULOXETINE 20 MG CAP PO SCH (21:34)
[2018-01-30] MEDS: METOPROLOL TAR 25 MG TAB PO SCH (21:36)
[2018-01-30] MEDS: DRONEDARONE 400 MG TAB PO SCH (21:40)
--- NOTE | 2018-01-31 00:21 | CON ---
Additional Consulting Physician: Dr. Lomas. Reason For Consultation: Elevated BUN and creatinine, fluid management, end-stage renal disease. History Of Present Illness: This is a pleasant, 57-year-old female, well known to me from the dialys is with significant past medical history of end-stage renal disease, on hemodialysis, TTS at [facility], diabetes, hypertension, secondary hyperparathyroidism, atrial fibrillation. The patient was in her regular state of health, went to dialysis yesterday. In the dialysis, the pat noe apparently had some altered mental status. For that reason, send to the ER. In the ER found to have atrial fibrillation, rate controlled. The patient admitted, seen by Cardiology. Cardiology el ect to put her on Multaq and watch her. The patient denied any chest pain. The patient follows up w juan carlos Johnson for foot infection. Past Medical History: Include, 1.Hypertension. 2.Diabetes. 3.End-stage renal disease, on hemodialysis, TTS. 4.Anemia. 5.Atrial fibrillation. Past Surgical History: Include, 1.Transplant. 2.AV fistula. 3.Cholecystectomy. Allergies: TO ZANTAC, ASPIRIN, CODEINE, MORPHINE, SULFA, TEGRETOL, XANAX. Family History: Positive for hypertension. Home Medications: Include, 1.Renvela. 2.Tramadol. 3.Sensipar. 4.Calcium carbonate. 5.Cholecalciferol. 6.Metoprolol. 7.Hydrocodone. 8.Levothyroxine. 9.Clarithromycin. Current Medication: In the hospital include, 1.Eliquis. 2.Cholecalciferol. 3.Hydrocodone. 4.Levothyroxine. 5.Metoprolol. 6.Renvela. Review of Systems: Head and Neck: No red eye. No ear pain. GI: No nausea, no vomiting. : No polyuria. No dysuria. No hematuria. SUEDING AND BUFFING MACHINE OPERATOR: No vaginal discharge. Respiratory: No shortness of breath. Cardiovascular: Has presyncope. Neuro: Has presyncope. Musculoskeletal: Has foot pain. Endocrine: No polydipsia. Skin: No rash. Physical Examination: Vital Signs: When I saw the patient, blood pressure 136/66, pulse of 73. Afebrile. Chest: Clear to auscultation. Heart: S1, S2. Regular rhythm. Extremities: Dressing on the right leg and foot. Neurologic: Alert. Nonfocal. Laboratory Data: WBC 7.8, H and H 10.5/33.1, platelets of 185. Sodium 134, potassium 3.7, bicarb 26 , BUN 51, creatinine 4.9, calcium 9.1. TSH 0.01. Assessment And Plan: 1.End-stage renal disease. I am going to resume her dialysis per schedule. We will schedule her fo r dialysis tomorrow. 2.Anemia of chronic kidney disease. I am going to go ahead and resume her Epogen. 3.Secondary hyperparathyroidism. I am going to resume her binder, and we will resume her Sensipar. We will follow up the patient. 4.Atrial fibrillation. We will follow up with Cardiology. Case discussed with Dr. Lomas. Discussed with the patient, verbalized understanding. ELISEO Voice ID: [id number] Report ID: [id number]
[2018-01-31] MEDS: ALBUTEROL 2.5 MG/3 ML NEB SOL NEB SCH ×4 (01:48→19:41)
[2018-01-31 04:23] LABS: Hematocrit 32.9 % (36.0-45.0); MCH 25.7 pg (27.0-35.0); MCV 81.9 fL (80-100); MPV 9.5 fL (7.6-11.3); RBC Red Blood Cell Count 4.02 M/uL (3.86-4.86)
[2018-01-31 04:38] LABS: Magnesium 2.1 mg/dL (1.8-2.5); Potassium 3.9 mEq/L (3.6-5.0)
[2018-01-31] MEDS: INSULIN -REGULAR HUMAN 50 UNIT/0.5 ML ML SQ SCH ×3 (07:19→17:45)
[2018-01-31] MEDS: INSULIN DETEMIR 100 UNIT/1 ML INSULIN SQ SCH ×2 (08:00→08:39)
[2018-01-31] MEDS: METOPROLOL TAR 25 MG TAB PO SCH ×2 (08:36→20:10)
[2018-01-31] MEDS: SEVELAMER CARBONATE 800 MG TABLET PO SCH ×3 (08:40→17:45)
[2018-01-31] MEDS: VITAMIN D 1000 UNIT TAB PO SCH (08:40)
[2018-01-31] MEDS: DRONEDARONE 400 MG TAB PO SCH ×2 (08:40→20:10)
[2018-01-31] MEDS: CINACALCET HCL 30 MG TAB PO SCH (08:41)
[2018-01-31] MEDS: HYDROCORTISONE 10 MG TAB PO SCH ×2 (08:41→20:09)
[2018-01-31] MEDS: LIOTHYRONINE SOD 5 MCG TAB PO SCH (08:41)
[2018-01-31] MEDS ORDERED: NEPRO SHAKE 237 ML CAN PO SCH (09:00)
[2018-01-31] MEDS ORDERED: HYDROCORTISONE 10 MG TAB PO SCH (09:00)
[2018-01-31] MEDS ORDERED: LIOTHYRONINE SOD 5 MCG TAB PO SCH (09:00)
[2018-01-31] MEDS ORDERED: DULOXETINE HCL PO SCH (09:00)
[2018-01-31] MEDS ORDERED: HOME MED 1 EA UNK (Cholecalciferol (Vitamin D3) [Vitamin D3] 1 CAP) PO SCH (09:00)
[2018-01-31] MEDS ORDERED: CINACALCET HCL 30 MG TAB PO SCH (09:00)
[2018-01-31] MEDS: APIXABAN 2.5 MG TABLET PO SCH ×2 (10:08→20:10)
[2018-01-31] MEDS ORDERED: INSULIN DETEMIR 100 UNIT/1 ML INSULIN SQ SCH (10:27)
--- NOTE | 2018-01-31 10:39 | P.DS ---
Admission Date: 01/29/18 Discharge Date: 01/31/18 Primary Care Provider: Dr. Cordero; Nephrology-Dr. Quintanilla Disposition: ROUTINE DISCHARGE Discharge Condition: GOOD Reason for Admission: Right lower extremity pain Consultations: Cardiology-Dr. Obrien Nephrology-Dr. Quintanilla Procedures: Echocardiogram: Ejection fraction 44%. - Problems (1) Hypertension Current Visit: Yes Status: Chronic Qualifiers: Hypertension type: essential hypertension Qualified Code(s): I10 - Essential (primary) hypertension (2) Hypothyroidism Current Visit: Yes Status: Chronic Qualifiers: Hypothyroidism type: unspecified Qualified Code(s): E03.9 - Hypothyroidism , unspecified (3) Adrenal insufficiency Current Visit: Yes Status: Chronic (4) Near syncope Onset Date: 01/30/18 Current Visit: Yes Status: Acute (5) Atrial fibrillation with rapid ventricular response Onset Date: 01/30/18 Current Visit: No Status: Acute (6) Anemia Onset Date: 10/25/17 Current Visit: No Status: Chronic Qualifiers: Anemia type: due to chronic kidney disease Chronic kidney disease stage: on chronic dialysis Qualified Code(s): N18.6 - End stage renal disease; D63.1 - Anemia in chronic kidney disease; D63.1 - Anemia in chronic kidney disease; Z99.2 - Dependence on renal dialysis; Z99.2 - Dependence on renal dialysis; Z99.2 - Dependence on renal dialysis; Z99.2 - Dependence on renal dialysis (7) Diabetes mellitus Onset Date: 01/30/18 Current Visit: No Status: Chronic Qualifiers: Diabetes mellitus type: type 2 Diabetes mellitus terminal block assembler insulin use: with half-way use Diabetes mellitus complication status: with kidney complications Diabetes mellitus complication detail: with chronic kidney disease Chronic kidney disease stage: on chronic dialysis Qualified Code(s) : E11.22 - Type 2 diabetes mellitus with diabetic chronic kidney disease; N18.6 - End stage renal disease; N18.6 - End stage renal disease; N18.6 - End stage renal disease; N18.6 - End stage renal disease; Z79.4 - termite inspector (current) use of insulin; Z79.4 - [facility] (current) use of insulin; Z79.4 - termite inspector ( current) use of insulin; Z79.4 - termite inspector (current) use of insulin; Z99.2 - Dependence on renal dialysis; Z99.2 - Dependence on renal dialysis; Z99.2 - Dependence on renal dialysis; Z99.2 - Dependence on renal dialysis (8) ESRD (end stage renal disease) on dialysis Onset Date: 01/30/18 Current Visit: No Status: Chronic (9) Non-healing surgical wound Onset Date: 01/30/18 Current Visit: No Status: Chronic Qualifiers: Encounter type: subsequent encounter Qualified Code(s): T81.89XD - Other complications of procedures, not elsewhere classified, subsequent encounter Brief History of Present Illness: 57-year-old female presented to emergency room with near syncope. This has been occurring in dialysis. Patient presented with atrial fibrillation with RVR. Patient with history of atrial fibrillation on medication. The patient was admitted for further evaluation. Hospital Course: Patient presented with presyncope. Patient has a history of atrial fibrillation. Patient came in with atrial fibrillation with RVR. Patient evaluated by Cardiology. Medications had to be adjusted. Patient was started on Multaq. Metoprolol was decreased. Patient was continued on chronic anti coagulation therapy. Echocardiogram shows normal ejection fraction of 44%. Patient did well on her medication. Patient at discharge was at normal sinus rhythm. Blood pressure and rate was controlled. At discharge new medication includes Multaq 400 mg 1 pill twice daily. Patient will continue with chronic anti coagulation therapy-Eliquis 2.5 mg 1 pill twice daily. Metoprolol has been decreased to 25 mg 1 pill twice daily. She will continue with Multaq and metoprolol. Metoprolol may need to be discontinued over time. This will be addressed by cardiology as an outpatient. Recommendation is for the patient follow up with cardiology in 1-2 weeks to follow up this hospitalization. Education on atrial fibrillation and chronic anti coagulation therapy will be provided. Patient with hypertension. Medications have been adjusted. This remained stable during her stay. Metoprolol has been decreased at 25 mg 1 pill twice daily since the patient is on Multaq. Metoprolol may need to be discontinued as an outpatient. This is to be further addressed by cardiology. Recommendation is to maintain blood pressures less 150/80. Further adjustment can be done by cardiology. Patient has diabetes. Hemoglobin A1c 7.3. Patient will continue with Levemir 12 units subcu daily. Patient continue with sliding scale. Recommendation is to maintain blood sugars less 140 fasting and less than 2 after meals. Further adjustment can be done by her PCP. Patient with adrenal insufficiency. Patient will continue with her steroid medications-Cortef. Further adjustment can be done by endocrinology. Patient with hypothyroidism. Patient will continue with Cytomel. Patient has end-stage renal disease. She is currently on dialysis. Patient did receive dialysis during her stay. Patient will continue with her dialysis treatments. Recommendation is for the patient follow up with nephrology in 1-2 weeks to monitor progress. Patient will continue with her dialysis medications. Patient has depression. She will continue with Cymbalta 60 mg 1 pill daily. Patient with diabetic chronic right lower extremity ulcer. Patient was evaluated by wound care. Dressing changes were done. Patient will continue with current wound care. Patient seen by surgery as an outpatient. Vital Signs/Physical Exam: Temp Pulse Resp BP Pulse Ox 98.0 F 76 18 124/52 L 98 01/31/18 04:00 01/31/18 04:00 01/31/18 04:00 01/31/18 04:00 01/31/18 04:00 General: Alert, In no apparent distress, Oriented x3, Cooperative HEENT: Atraumatic Neck: Supple Respiratory: Clear to auscultation bilaterally, Normal air movement Cardiovascular: Normal pulses, Regular rate/rhythm Gastrointestinal: Normal bowel sounds, Soft and benign, Non-distended, No masses , No rebound, No guarding Musculoskeletal: No erythema, No tenderness, No warmth Integumentary: No erythema, No warmth, No cyanosis Neurological: Normal speech, Normal strength at 5/5 x4 extr, Normal tone, Normal affect Laboratory Data at Discharge: WBC 7.8 K/uL (4.3-10.9) 01/31/18 03:30 Hgb 10.3 g/dL (12.0-15.0) L 01/31/18 03:30 Hct 32.9 % (36.0-45.0) L 01/31/18 03:30 Plt Count 161 K/uL (152-406) 01/31/18 03:30 PT 13.4 SECONDS (9.5-12.5) H 01/29/18 16:50 INR 1.13 01/29/18 16:50 APTT 88.8 SECONDS (24.3-36.9) H 01/29/18 23:16 Sodium 136 mEq/L (135-145) 01/31/18 03:30 Potassium 3.9 mEq/L (3.6-5.0) 01/31/18 03:30 BUN 75 mg/dL (6-20) H D 01/31/18 03:30 Creatinine 6.45 mg/dL (0.44-1.00) H* D 01/31/18 03:30 Glucose 107 mg/dL (65-120) 01/31/18 03:30 Phosphorus 3.8 mg/dL (2.5-4.3) 01/30/18 05:30 Magnesium 2.1 mg/dL (1.8-2.5) 01/31/18 03:30 Total Bilirubin 0.5 mg/dL (0.3-1.2) 01/30/18 05:30 AST 14 IU/L (10-42) 01/30/18 05:30 ALT 13 IU/L (10-60) 01/30/18 05:30 Alkaline Phosphatase 426 IU/L (42-121) H 01/30/18 05:30 Troponin I 0.12 ng/mL (<0.03) H 01/30/18 05:30 B-Natriuretic Peptide 1461 pg/ml (<=100) H 01/29/18 16:50 Home Medications: Apixaban [Eliquis *] 1 tab PO BID 01/30/18 Calcium Carbonate [Tums Regular*] 4 tab PO BEDTIME 01/30/18 Cholecalciferol (Vitamin D3) [Vitamin D3] 1 cap PO DAILY 01/30/18 Cinacalcet HCl [Sensipar] 1 tab PO DAILY 01/30/18 Duloxetine HCl 1 cap PO DAILY 01/30/18 Hydrocortisone [Cortef*] 1 tab PO BEDTIME 01/30/18 Hydrocortisone [Cortef*] 2 tab PO DAILY 01/30/18 Liothyronine Sodium [Cytomel] 1 tab PO DAILY 01/30/18 Nepro Shake [Nepro*] 1 can PO DAILY 01/30/18 Sevelamer Carbonate [Renvela*] 2 tab PO TID 01/30/18 Tramadol HCl/Acetaminophen [Tramadol-Acetaminophn 37.5-325] 1 tab PO Q6HP PRN Dronedarone [Multaq*] 400 mg PO BID #60 tab 01/31/18 Metoprolol Tartrate [Lopressor*] 25 mg PO BID #60 tab 01/31/18 New Medications: Dronedarone [Multaq*] 400 mg PO BID #60 tab Metoprolol Tartrate [Lopressor*] 25 mg PO BID #60 tab Patient Discharge Instructions: 1. Patient will need to follow up with her PCP in 1 week to follow up this hospitalization. 2. Patient presented with presyncope. Patient has a history of atrial fibrillation. Patient came in with atrial fibrillation with RVR. Medications have been adjusted. Patient seen by Cardiology. Echocardiogram shows normal ejection fraction of 44%. At discharge new medication includes Multaq 400 mg 1 pill twice daily. Patient will continue with chronic anti coagulation therapy-Eliquis 2.5 mg 1 pill twice daily. Metoprolol has been decreased to 25 mg 1 pill twice daily. Recommendation is for the patient follow up with cardiology in 1-2 weeks to follow up this hospitalization. Education on atrial fibrillation and chronic anti coagulation therapy will be provided. 3. Patient with hypertension. Medications have been adjusted. Metoprolol has been decreased at 25 mg 1 pill twice daily since the patient is on Multaq. Recommendation is to maintain blood pressures less 150/80. Further adjustment can be done by cardiology. 4. Patient has diabetes. Hemoglobin A1c 7.3. Patient will continue with Levemir 12 units subcu daily. Patient continue with sliding scale. Recommendation is to maintain blood sugars less 140 fasting and less than 2 after meals. Further adjustment can be done by her PCP. 5. Patient with adrenal insufficiency. Patient will continue with her steroid medications- Cortef. Further adjustment can be done by endocrinology. 6. Patient with hypothyroidism. Patient will continue with Cytomel. 7. Patient has end-stage renal disease. She is currently on dialysis. Patient will continue with her dialysis treatments. Recommendation is for the patient follow up with nephrology in 1-2 weeks to monitor progress. Patient will continue with her dialysis medications. 8. Patient has depression. She will continue with Cymbalta 60 mg 1 pill daily. 9. Patient with diabetic chronic right lower extremity ulcer. Patient will continue with current wound care. Patient seen by surgery as an outpatient. Diet: Renal Activity: Ad arben Time spent managing pt's care (in minutes): 55
--- NOTE | 2018-01-31 16:49 | PN ---
Date of Progress Note: 01/31/2018 Subjective: The patient doing better. No nausea. No vomiting. No tachycardia. Physical Examination: Vital Signs: Blood pressure 124/52, pulse of 76, afebrile. Chest: Clear to auscultation. Heart: S1, S2. Regular. Abdomen: Soft, nontender. Extremities: Dressing on the leg. Laboratory Data: H and H 10.3/32.9. Sodium 136, potassium 3.9, bicarb 25, BUN 75, creatinine 6.4, c alcium 8.4, magnesium 2.1. Medications: Current medications the patient on its include: 1.Eliquis. 2.Epogen. 3.Calcium carbonate 2 g at bedtime. 4.Multaq 400 b.i.d. 5.Metoprolol 25 b.i.d. Assessment And Plan: 1.End-stage renal disease, normal volume. We will continue dialysis today as by prescription. 2.Hypertension, controlled, optimal as by Cardiology to taper down the metoprolol and continue on th e Multaq, metoprolol currently 25 mg, and the patient on Multaq of 400. The patient was started on E liquis 2.5 for atrial fibrillation. 3.Atrial fibrillation, rate controlled as above. Plan to discontinue metoprolol currently 25 mg b.i .d., continue Multaq 400 b.i.d., and Eliquis 2.5 b.i.d. The patient cleared from the Renal standpoin t for discharge planning. Case has been discussed with Dr. Lomas and Dr. Obrien, Cardiology. FRANCES/SOCORRO Voice ID: [id number] Report ID: [id number]
[2018-01-31 19:52] VITALS: BP 133/70; TEMP 98.3
[2018-01-31] MEDS: DULOXETINE 20 MG CAP PO SCH (20:10)
--- NOTE | 2018-02-02 11:42 | PN ---
Subjective: Ms. Roberson was admitted by Dr. Lomas and seen by Dr. Obrien for intermittent atrial fibri llation. She was placed on Multaq and Eliquis. Echocardiogram showed left ventricular hypertrophy w ith a normal ejection fraction. On 01/31/2018, she was in a normal rhythm. No symptoms. We will se nd her home on Multaq and Eliquis whenever it is okay with Dr. Lomas. We will see her in the office in the near future. AMAIRANI/SOCORRO Voice ID: [id number] Report ID: [id number]
--- NOTE | 2018-02-03 22:50 | EKG ---
Test Date: 2018-01-31 Test Time: 14:56:02 Recording Studio Setup Worker: FERMIN MEASUREMENT RESULTS: Intervals: Rate: 72 CT: 164 QRSD: 74 QT: 442 QTc: 483 [place]: P: 70 CT: 164 QRS: 94 T: 102 INTERPRETIVE STATEMENTS: Normal sinus rhythm Possible Lateral infarct, age undetermined Abnormal ECG Compared to ECG 01/30/2018 10:26:05 Myocardial infarct finding now present T-wave abnormality no longer present Possible ischemia no longer present Electronically Signed On 02-03-18 22:49:26 CDT by Thor Obrien
== END 2018-01-31 20:40 | disposition home or self-care (01) | DRG 308 ==
LOC: ER 15:53 → OBSVTOIN 18:50 → INTOOBSV 18:50 → ERHOLD 18:50 → 4TH 20:00 → OBSVTOIN 01-30 14:03
PROVIDERS: ADMIT Hospitalist; ATTEND Hospitalist
DX: I48.91 Unspecified atrial fibrillation (principal); N18.6 End stage renal disease; E27.40 Unspecified adrenocortical insufficiency; I12.0 Hypertensive chronic kidney disease with stage 5 chronic kidney disease or end stage renal disease; L97.919 Non-pressure chronic ulcer of unspecified part of right lower leg with unspecified severity; Z94.0 Kidney transplant status; R55 Syncope and collapse; E03.9 Hypothyroidism, unspecified; D64.9 Anemia, unspecified; E11.22 Type 2 diabetes mellitus with diabetic chronic kidney disease; F32.9 Major depressive disorder, single episode, unspecified; E11.622 Type 2 diabetes mellitus with other skin ulcer; Z88.2 Allergy status to sulfonamides; D63.1 Anemia in chronic kidney disease; Z88.6 Allergy status to analgesic agent; Z88.0 Allergy status to penicillin
CPT/HCPCS: 36415; 70450; 71045; 74022; 80048; 80053; 80076; 82550; 82553; 82962; 83036; 83735; 83880; 84100; 84439; 84443; 84484; 85025; 85027; 85610; 85730; 90935; 93005; 93306; 94640; 96365; 96375; 99285; C9113; J1644

== ENCOUNTER 2018-12-10 17:22 | Emergency (ER) | payer OTHER, BC ==
--- NOTE | 2018-12-10 20:36 | RAD REPORT ---
EXAM DESCRIPTION: Jorge Cui (2 Views)12/10/2018 8:30 pm CLINICAL HISTORY: Cough COMPARISON: January 2018 FINDINGS: The lungs appear clear of acute infiltrate. The heart is normal size IMPRESSION: No acute abnormalities displayed
--- NOTE | 2018-12-10 20:40 | ER ---
Nurse's Notes [facility] Name: Jamila Hutson Age: 58 yrs Sex: Female : 1960 Arrival Date: 12/10/2018 Time: 17:23 Bed 12 Private MD: Diagnosis: Cough;Acute upper respiratory infection, unspecified Presentation: 12/10 17:47 Presenting complaint: Cough and bilateral ear pain x 3 days. Denies N/V/D/body aches. hb Transition of care: patient was not received from another setting of care. Onset of symptoms was December 07, 2018. Risk Assessment: Do you want to hurt yourself or someone else? Patient reports no desire to harm self or others. Care prior to arrival: None. 17:47 Method Of Arrival: Wheelchair hb 17:47 Acuity: ALLA 4 hb 20:16 Initial Sepsis Screen: Does the patient meet any 2 criteria? No. Patient's initial rv sepsis screen is negative. Does the patient have a suspected source of infection? No. Patient's initial sepsis screen is negative. Historical: - Allergies: 17:49 Alprazolam; hb 17:49 Aspirin; hb 17:49 Betadine; hb 17:49 Codeine; hb 17:49 Morphine; hb 17:49 PENICILLINS; hb 17:49 Sulfa (Sulfonamide Antibiotics); hb 17:49 Tegretol; hb 17:49 Zantac; hb - PMHx: 17:49 Cutaneous abscess of right lower limb; Diabetes - IDDM; Dialysis; Hypothyroidism; hb - PSHx: 17:49 Appendectomy; kidney transplants; Cholecystectomy; hb - Immunization history:: Adult Immunizations up to date. - Social history:: Smoking status: Patient/guardian denies using tobacco. - Ebola Screening: : No symptoms or risks identified at this time. - Family history:: not pertinent. - Hospitalizations: : No recent hospitalization is reported. Screenin:16 Abuse screen: Denies threats or abuse. Denies injuries from another. Nutritional rv screening: No deficits noted. Tuberculosis screening: No symptoms or risk factors identified. Fall Risk None identified. Assessment: 20:15 General: Appears in no apparent distress. comfortable, Behavior is calm, cooperative. rv Pain: Denies pain. Neuro: Level of Consciousness is awake, alert, obeys commands, Oriented to person, place, time, situation. Cardiovascular: Capillary refill < 3 seconds. Respiratory: Airway is patent. GI: No signs and/or symptoms were reported involving the gastrointestinal system. : No signs and/or symptoms were reported regarding the genitourinary system. EENT: No signs and/or symptoms were reported regarding the EENT system. Derm: Skin is intact. Vital Signs: 17:46 BP 108 / 63; Pulse 76; Resp 18; Temp 100.3(TE); Pulse Ox 100% on R/A; Pain 5/10; hb 20:45 BP 123 / 59; Pulse 79; Resp 19 S; Pulse Ox 100% on R/A; rv ED Course: 17:23 Patient arrived in ED. rg4 17:47 Arm band placed on. EKG completed in triage. Results shown to MD. hb 17:48 Triage completed. hb 19:49 Chris Zuñiga MD is Attending Physician. rn 20:16 Patient has correct armband on for positive identification. Bed in low position. Call rv light in reach. Pulse ox on. NIBP on. 20:27 XRAY Chest Pa And Lat (2 Views) In Process Unspecified. EDMS 20:50 No provider procedures requiring assistance completed. Patient did not have IV access rv during this emergency room visit. Administered Medications: No medications were administered Outcome: 20:39 Discharge ordered by . rn 20:50 Discharged to home via wheelchair. rv 20:50 Condition: good 20:50 Discharge instructions given to patient, Instructed on discharge instructions, follow up and referral plans. Demonstrated understanding of instructions, follow-up care. 20:51 Patient left the ED. rv Signatures: Dispatcher [employer] EDMS Chris Zuñiga MD MD rn Baxter, Heather, RN RN hb Garcia, Rubi rg4 Seth Britt RN RN rv Corrections: (The following items were deleted from the chart) 17:48 17:46 BP 96 / 79; Pulse 76bpm; Resp 18bpm; Pulse Ox 100% RA; Temp 100.3F Temporal; Pain hb 5/10; hb
--- NOTE | 2018-12-10 20:40 | EDPHYS ---
Physician Documentation [facility] Name: Jamila Hutson Age: 58 yrs Sex: Female : 1960 Arrival Date: 12/10/2018 Time: 17:23 Bed 12 Private MD: ED Physician Chris Zuñiga HPI: 12/10 20:34 This 58 yrs old Black Female presents to ER via Wheelchair with complaints of Cough. rn 20:34 The patient or guardian reports cough. Onset: The symptoms/episode began/occurred 5 rn day(s) ago. Severity of symptoms: At their worst the symptoms were mild, in the emergency department the symptoms are unchanged. Modifying factors: The symptoms are alleviated by nothing, the symptoms are aggravated by nothing. The patient has experienced similar episodes in the past. Reports cough for 5 days, is on day 5 of zithromax, [facility], likely because of her many allergies, reports still doesn't feel well, was supposed to get outpt cxr, but order not faxed, then closed, so told to come here by registration to get CXR. Denies sob. . Historical: - Allergies: 17:49 Alprazolam; hb 17:49 Aspirin; hb 17:49 Betadine; hb 17:49 Codeine; hb 17:49 Morphine; hb 17:49 PENICILLINS; hb 17:49 Sulfa (Sulfonamide Antibiotics); hb 17:49 Tegretol; hb 17:49 Zantac; hb - PMHx: 17:49 Cutaneous abscess of right lower limb; Diabetes - IDDM; Dialysis; Hypothyroidism; hb - PSHx: 17:49 Appendectomy; kidney transplants; Cholecystectomy; hb - Immunization history:: Adult Immunizations up to date. - Social history:: Smoking status: Patient/guardian denies using tobacco. - Ebola Screening: : No symptoms or risks identified at this time. - Family history:: not pertinent. - Hospitalizations: : No recent hospitalization is reported. ROS: 20:34 Constitutional: Negative for fever, chills, and weight loss, Eyes: Negative for injury, rn pain, redness, and discharge, Neck: Negative for injury, pain, and swelling, Cardiovascular: Negative for chest pain, palpitations, and edema, Respiratory: + cough, neg for sob Abdomen/GI: Negative for abdominal pain, nausea, vomiting, diarrhea, and constipation, MS/Extremity: Negative for injury and deformity, Skin: Negative for injury, rash, and discoloration, Neuro: Negative for headache, weakness, numbness, tingling, and seizure. Exam: 20:34 Constitutional: This is a well developed, well nourished patient who is awake, alert, rn and in no acute distress. Head/Face: Normocephalic, atraumatic. Eyes: Pupils equal round and reactive to light, extra-ocular motions intact. Lids and lashes normal. Conjunctiva and sclera are non-icteric and not injected. Cornea within normal limits. Periorbital areas with no swelling, redness, or edema. ENT: MMM, no stridor Cardiovascular: Regular rate and rhythm, No pulse deficits. Respiratory: Lungs have equal breath sounds bilaterally, clear to auscultation, No increased work of breathing, no retractions or nasal flaring. Skin: Warm, dry with normal turgor. Normal color with no rashes, no lesions, and no evidence of cellulitis. MS/ Extremity: Pulses equal, no cyanosis. Neurovascular intact. Full, normal range of motion. Equal circumference. Neuro: Awake and alert, GCS 15, oriented to person, place, time, and situation Vital Signs: 17:46 BP 108 / 63; Pulse 76; Resp 18; Temp 100.3(TE); Pulse Ox 100% on R/A; Pain 5/10; hb 20:45 BP 123 / 59; Pulse 79; Resp 19 S; Pulse Ox 100% on R/A; rv MDM: 19:49 Patient medically screened. rn 20:38 Differential Diagnosis: Bronchitis Upper Respiratory Infection Viral Syndrome rn Pneumonia. Data reviewed: vital signs, nurses notes, radiologic studies, plain films, and as a result, I will discharge patient. Counseling: I had a detailed discussion with the patient and/or guardian regarding: the historical points, exam findings, and any diagnostic results supporting the discharge/admit diagnosis, radiology results, the need for outpatient follow up, to return to the emergency department if symptoms worsen or persist or if there are any questions or concerns that arise at home. Special discussion: I discussed with the patient/guardian in detail that at this point there is no indication for admission to the hospital. It is understood, however, that if the symptoms persist or worsen the patient needs to return immediately for re-evaluation. ED course: Most likely viral syndrome, has abx from pcp, normal O2, will dc home with return precautions. . 12/10 20:07 Order name: XRAY Chest Pa And Lat (2 Views); Complete Time: 20:38 rn Administered Medications: No medications were administered Disposition: 12/10/18 20:39 Discharged to Home. Impression: Cough, Acute upper respiratory infection, unspecified. - Condition is Stable. - Discharge Instructions: Viral Respiratory Infection, Cough, Adult. - Medication Reconciliation Form, Thank You Letter, Antibiotic Education, Prescription Opioid Use form. - Follow up: Private Physician; When: As needed; Reason: Recheck today's complaints, Re-evaluation by your physician. - Problem is an ongoing problem. - Symptoms are unchanged. Signatures: Dispatcher [employer] EDMS Chris Zuñiga MD MD rn Baxter, Heather, RN RN hb Vicente, Ronaldo, RN RN rv Corrections: (The following items were deleted from the chart) 20:51 20:39 12/10/2018 20:39 Discharged to Home. Impression: Cough; Acute upper respiratory rv infection, unspecified. Condition is Stable. Forms are Medication Reconciliation Form, Thank You Letter, Antibiotic Education, Prescription Opioid Use. Follow up: Private Physician; When: As needed; Reason: Recheck today's complaints, Re-evaluation by your physician. Problem is an ongoing problem. Symptoms are unchanged. rn
[2018-12-10 22:25] VITALS: TEMP 100.3; O2SAT 100
[2018-12-10 22:26] VITALS: BP 123/59
== END 2018-12-10 20:51 | disposition home or self-care (01) ==
LOC: ER 17:22
DX: M54.32 Sciatica, left side (principal); I10 Essential (primary) hypertension
CPT/HCPCS: 71046; 99283

== ENCOUNTER 2020-06-09 18:48 | Inpatient (IN) | payer OTHER, BC ==
[2020-06-09] MEDS ORDERED: ACETAMINOPHEN 500 MG TAB ONE (19:31)
--- NOTE | 2020-06-09 20:33 | RAD REPORT ---
EXAM DESCRIPTION: RAD - Chest Single View - 06/09/2020 8:26 pm CLINICAL HISTORY: FEVER Chest pain. COMPARISON: Chest Pa And Lat (2 Views) dated 12/10/2018; Abdomen Acute Series dated 01/30/2018; Chest Single View dated 01/29/2018; Chest Single View dated 10/23/2017 FINDINGS: Portable technique limits examination quality. Mild bilateral interstitial lung opacities are seen with moderate right upper lobe infiltrate suspect ed. The heart is normal in size. No displaced fractures. IMPRESSION: Right upper lobe pneumonia suspected.
[2020-06-09 21:15] LABS: Absolute Lymphocytes (CBC) 0.5 K/uL (0.7-4.9); Basophils % 0.4 % (0-1.3); Hematocrit 27.4 % (36.0-45.0); Lymphocytes % 6.7 % (15.3-44.8); MPV 9.5 fL (7.6-11.3); RBC Red Blood Cell Count 3.14 M/uL (3.86-4.86)
[2020-06-09 21:29] LABS: Protime INR 1.24
[2020-06-09] MEDS ORDERED: Levofloxacin500mg IV 500 MG/100 ML BAG IV ONE (22:01)
[2020-06-09 22:18] LABS: Albumin 2.2 g/dL (3.4-5.0); Bilirubin Direct 0.2 mg/dL (0-0.2); Bilirubin Total 0.5 mg/dL (0.2-1.0); Potassium 3.4 mmol/L (3.5-5.1); Protein, Total 6.8 g/dL (6.4-8.2)
[2020-06-09 22:20] LABS: Troponin (Emerg Dept Use Only) 0.63 ng/mL (0.0-0.045)
--- NOTE | 2020-06-09 23:39 | EDPHYS ---
Physician Documentation [facility] Name: Jamila Hutson Age: 59 yrs Sex: Female : 1960 Arrival Date: 06/09/2020 Time: 18:54 Bed 3 Private MD: ED Physician Jared Bernal HPI: 06/09 20:06 This 59 yrs old Black Female presents to ER via EMS with complaints of Altered Mental mh7 Status, General Weakness, Fever. 20:06 The patient presents with confusion, trouble concentrating. Onset: The symptoms/episode mh7 began/occurred at an unknown time. Possible causes: low blood sugar, the patient uses insulin, sepsis, the patient has had a history of a fever. Associated signs and symptoms: Pertinent positives: diarrhea, weakness. Current symptoms: In the emergency department the patient's symptoms are unchanged from the initial presentation. Historical: - Allergies: 19:00 Alprazolam; hb 19:00 Aspirin; hb 19:00 Betadine; hb 19:00 Codeine; hb 19:00 Morphine; hb 19:00 PENICILLINS; hb 19:00 Sulfa (Sulfonamide Antibiotics); hb 19:00 Tegretol; hb 19:00 Zantac; hb - Home Meds: 23:24 clarithromycin 500 mg Oral tab 1 tab 2 times per day [Active]; Eliquis 2.5 mg oral tab jb4 [Active]; Multaq 400 mg oral tab [Active]; midodrine 5 mg oral tab 1 tabs twice a day [Active]; liothyronine 5 mcg oral tab 1 tab once daily [Active]; levofloxacin 500 mg Oral tab 1 tab once daily [Active]; cinacalcet oral 30mg oral 1 tab once daily [Active]; hydrocortisone 10 mg Oral tab 2 tablets by mouth every morning and 1 tablet every evening. [Active]; duloxetine 60 mg oral cpDR 1 cap once daily [Active]; - PMHx: 19:00 Cutaneous abscess of right lower limb; Diabetes - IDDM; Dialysis; Hypothyroidism; hb - PSHx: 19:00 Appendectomy; kidney transplants; Cholecystectomy; hb - Immunization history:: Adult Immunizations up to date. - Social history:: Smoking status: Patient denies any tobacco usage or history of. ROS: 20:06 Eyes: Negative for injury, pain, redness, and discharge, ENT: Negative for injury, mh7 pain, and discharge, Neck: Negative for injury, pain, and swelling, Cardiovascular: Negative for chest pain, palpitations, and edema, Respiratory: Negative for shortness of breath, cough, wheezing, and pleuritic chest pain, Back: Negative for injury and pain, : Negative for injury, bleeding, discharge, and swelling, MS/Extremity: Negative for injury and deformity, Skin: Negative for injury, rash, and discoloration, Psych: Negative for depression, anxiety, suicide ideation, homicidal ideation, and hallucinations, Allergy/Immunology: Negative for hives, rash, and allergies, Endocrine: Negative for neck swelling, polydipsia, polyuria, polyphagia, and marked weight changes, Hematologic/Lymphatic: Negative for swollen nodes, abnormal bleeding, and unusual bruising. Exam: 20:06 Head/Face: Normocephalic, atraumatic. Eyes: Pupils equal round and reactive to light, mh7 extra-ocular motions intact. Lids and lashes normal. Conjunctiva and sclera are non-icteric and not injected. Cornea within normal limits. Periorbital areas with no swelling, redness, or edema. ENT: Nares patent. No nasal discharge, no septal abnormalities noted. Tympanic membranes are normal and external auditory canals are clear. Oropharynx with no redness, swelling, or masses, exudates, or evidence of obstruction, uvula midline. Mucous membranes moist. Neck: Trachea midline, no thyromegaly or masses palpated, and no cervical lymphadenopathy. Supple, full range of motion without nuchal rigidity, or vertebral point tenderness. No Meningismus. Chest/axilla: Normal chest wall appearance and motion. Nontender with no deformity. No lesions are appreciated. Cardiovascular: Regular rate and rhythm with a normal S1 and S2. No gallops, murmurs, or rubs. Normal PMI, no JVD. No pulse deficits. Respiratory: Lungs have equal breath sounds bilaterally, clear to auscultation and percussion. No rales, rhonchi or wheezes noted. No increased work of breathing, no retractions or nasal flaring. 20:06 Back: No spinal tenderness. No costovertebral tenderness. Full range of motion. Skin: Warm, dry with normal turgor. Normal color with no rashes, no lesions, and no evidence of cellulitis. MS/ Extremity: Pulses equal, no cyanosis. Neurovascular intact. Full, normal range of motion. 20:06 Constitutional: The patient appears in no acute distress, alert, awake, anxious, uncomfortable. 20:06 Abdomen/GI: Inspection: abdomen appears normal, obese Bowel sounds: normal, in all quadrants, Palpation: mild abdominal tenderness, in all quadrants, no appreciated organomegaly, Rectal exam: the exam is deferred, because of patient request, Indicators: McBurney's point is not tender, Peterson's sign is negative, Rovsing's sign is negative, Obturator sign is negative, Psoas sign is negative, Liver: no appreciated palpable abnormalities, Hernia: not appreciated. 20:06 Neuro: Orientation: to person, place, situation, Mentation: able to follow commands, slow to respond, Memory: immediate memory is intact, recent memory is intact, Cranial nerves: grossly normal, Cerebellar function: is grossly normal, Motor: is normal, Sensation: is normal, Gait: not tested. seizure activity, is not displayed by the patient, Abnormal movements: there are no abnormal movements. 06/10 06:49 ECG was reviewed by the Attending Physician. [facility] Vital Signs: 06/09 18:54 BP 141 / 66; Pulse 91; Resp 14; Temp 100.5(O); Pulse Ox 96% on R/A; Weight 90 kg; hb Height 5 ft. 3 in. (160.02 cm); Pain 0/10; 19:15 BP 135 / 72; Pulse 90; Resp 18; Temp 103.2(O); Pulse Ox 97% on R/A; lp1 20:30 BP 133 / 54; Pulse 87; Resp 13; Temp 103.1(O); Pulse Ox 97% on R/A; jb4 21:30 BP 106 / 53; Pulse 87; Resp 14; Temp 102.5(O); Pulse Ox 99% on R/A; jb4 22:30 BP 112 / 62; Pulse 87; Resp 19; Temp 100.6(O); Pulse Ox 97% on R/A; jb4 23:30 BP 103 / 56; Pulse 86; Resp 17; Temp 99.9(O); Pulse Ox 99% on R/A; Pain 0/10; jb4 06/10 00:45 BP 106 / 56; Pulse 88; Resp 16; Pulse Ox 99% on R/A; jb4 06/09 18:54 Body Mass Index 35.15 (90.00 kg, 160.02 cm) hb MDM: 06/09 19:33 Patient medically screened. [facility] 23:35 Differential Diagnosis: electrolyte abnormality, intracranial bleed, meningitis, [facility] pneumonia, sepsis, UTI, volume depletion. Data reviewed: vital signs, nurses notes, EMS record, old medical records, lab test result(s), cardiac enzymes, CBC, electrolytes, Flu: urinalysis, EKG, radiologic studies, CT scan, plain films. Data interpreted: Pulse oximetry: on room air is 97 %. Interpretation: normal. Counseling: I had a detailed discussion with the patient and/or guardian regarding: the historical points, exam findings, and any diagnostic results supporting the discharge/admit diagnosis, lab results, radiology results, the need for further work-up and treatment in the hospital. Response to treatment: the patient's symptoms have markedly improved after treatment. 06/10 06:19 Admission orders: after a detailed discussion of the patient's condition and case, the [facility] admit orders are written by me. 06/09 19:28 Order name: Glucose, Ancillary Testing; Complete Time: 21:36 [facility] 06/09 19:35 Order name: Amylase, Serum; Complete Time: 22:24 [facility] 06/09 19:35 Order name: Basic Metabolic Panel; Complete Time: 22:24 [facility] 06/09 19:35 Order name: Blood Culture Adult (2) [facility] 06/09 19:35 Order name: CBC with Diff; Complete Time: 21:36 [facility] 06/09 19:35 Order name: Ckmb; Complete Time: 22:24 [facility] 06/09 19:35 Order name: CPK; Complete Time: 22:24 [facility] 06/09 19:35 Order name: Lactate; Complete Time: 21:36 [facility] 06/09 19:35 Order name: LFT's; Complete Time: 22:24 [facility] 06/09 19:35 Order name: Lipase; Complete Time: 22:24 [facility] 06/09 19:35 Order name: Procalcitonin; Complete Time: 22:24 [facility] 06/09 19:35 Order name: Protime (+inr); Complete Time: 21:36 [facility] 06/09 19:35 Order name: Ptt, Activated; Complete Time: 21:36 [facility] 06/09 19:35 Order name: Troponin (emerg Dept Use Only); Complete Time: 22:24 [facility] 06/09 19:35 Order name: Urine Microscopic Only [facility] 06/09 19:35 Order name: Chest Single View XRAY; Complete Time: 21:36 [facility] 06/09 19:46 Order name: Influenza Screen (a \T\ B); Complete Time: 21:36 [facility] 06/09 20:36 Order name: Glucose, Ancillary Testing; Complete Time: 21:36 [facility] 06/09 23:46 Order name: Basic Metabolic Panel [facility] 06/09 23:46 Order name: Basic Metabolic Panel [facility] 06/09 23:46 Order name: CBC with Automated Diff [facility] 06/09 23:46 Order name: CBC with Automated Diff [facility] 06/09 23:46 Order name: NT PRO-BNP [facility] 06/09 23:46 Order name: NT PRO-BNP [facility] 06/09 23:46 Order name: Troponin I [facility] 06/09 23:46 Order name: Troponin I [facility] 06/09 23:46 Order name: Troponin I [facility] 06/10 00:48 Order name: SARS-COV-2 RT PCR [facility] 06/10 01:33 Order name: Glucose, Ancillary Testing [facility] 06/09 19:35 Order name: Accucheck; Complete Time: 19:42 [facility] 06/09 19:35 Order name: Cardiac monitoring; Complete Time: 21:29 [facility] 06/09 19:35 Order name: EKG - Nurse/Tech; Complete Time: 20:38 [facility] 06/09 19:35 Order name: IV Saline Lock - Large Bore; Complete Time: 21:29 [facility] 06/09 19:35 Order name: Labs collected and sent; Complete Time: 21:29 [facility] 06/09 19:35 Order name: O2 Per Protocol; Complete Time: 21:29 [facility] 06/09 19:35 Order name: O2 Sat Monitoring; Complete Time: 21:29 [facility] 06/09 19:35 Order name: CT Head Brain wo Cont [facility] 06/09 19:35 Order name: CT Abd/Pelvis - Without Contrast [facility] 06/09 23:46 Order name: Consistent Carb (ADA) 1800 [address] [facility] 06/09 23:46 Order name: EKG Electrocardiogram [facility] 06/09 23:46 Order name: EKG Electrocardiogram [facility] EC:49 Rate is 89 beats/min. Rhythm is regular. QRS [place] is Normal. [place] interval is normal. QRS mh7 interval is normal. QT interval is normal. No Q waves. T waves are Normal. No ST changes noted. Clinical impression: Normal ECG. Administered Medications: 06/09 19:30 Drug: Tylenol 1000 mg Route: PO; 4 20:30 Follow up: Response: No adverse reaction; Temperature is unchanged [facility] 21:55 Drug: LevaQUIN 500 mg Volume: 100 ml; Route: IVPB; Infused Over: 60 mins; Site: left jb4 jugular; 22:55 Follow up: Response: No adverse reaction; IV Status: Completed infusion; IV Intake: jb4 100ml 21:57 Not Given (Physician Discretion): NS 0.9% (30 ml/kg) 30 ml/kg IV at bolus once; Sepsis 4 Protocol Disposition: 06/10 06:20 Co-signature as Attending Physician, Jared Bernal MD. [facility] Disposition: 06/09/20 23:38 Hospitalization ordered by Sivakumar Mckeon for Inpatient Admission. Preliminary diagnosis are Pneumonia, Sepsis. - Bed requested for Telemetry/MedSurg (Inpatient). - Status is Inpatient Admission. jb4 - Condition is Stable. - Problem is new. - Symptoms have improved. Signatures: Dispatcher [employer] [facility] Abe Sanchez, PARIMUTUEL TICKET CHECKER-C PARIMUTUEL TICKET CHECKER-Cla1 Carmel Harris RN RN tl1 Akua Bradford RN RN Braydon Escobar RN RN jb4 Jared Bernal MD MD 7 Corrections: (The following items were deleted from the chart) 06/09 22:52 22:02 CORONAVIRUS+MR.LAB.FADY ordered. [facility] 06/10 00:57 06/09 23:38 Hospitalization Ordered by Sivakumar Mckeon MD for Inpatient Admission. Preliminary tl1 diagnosis is Pneumonia; Sepsis. Bed requested for Telemetry/MedSurg (Inpatient). Status is Inpatient Admission. Condition is Stable. Problem is new. Symptoms have improved. 7 06/10 01:36 00:57 06/09/2020 23:38 Hospitalization Ordered by Sivakumar Mckeon MD for Inpatient Admission. jb4 Preliminary diagnosis is Pneumonia; Sepsis. Bed requested for Telemetry/MedSurg (Inpatient). Status is Inpatient Admission. Condition is Stable. Problem is new. Symptoms have improved. tl1
--- NOTE | 2020-06-09 23:39 | ER ---
Nurse's Notes [facility] Name: Jamila Hutson Age: 59 yrs Sex: Female : 1960 Arrival Date: 06/09/2020 Time: 18:54 Bed 3 Private MD: Diagnosis: Pneumonia;Sepsis Presentation: 06/09 18:54 Chief complaint: EMS states: Family called for confusion and generalized weakness. At hb baseline pt is AOx4, today she is AOx1-2. BP 138/88, HR 90s, T100.8, BGL 55, refused oral glucose. Coronavirus screen: fever, Client presents with at least one sign or symptom that may indicate coronavirus-19. Standard/surgical mask placed on the client. Provider contacted for isolation considerations. Ebola Screen: No symptoms or risks identified at this time. Initial Sepsis Screen: Does the patient meet any 2 criteria? Altered Mental Status. HR > 90 bpm. Yes Does the patient have a suspected source of infection? No. Patient's initial sepsis screen is negative. Risk Assessment: Do you want to hurt yourself or someone else? Patient reports no desire to harm self or others. Onset of symptoms was June 09, 2020. 18:54 Method Of Arrival: EMS: [facility] hb 18:54 Acuity: ALLA 2 hb Historical: - Allergies: 19:00 Alprazolam; hb 19:00 Aspirin; hb 19:00 Betadine; hb 19:00 Codeine; hb 19:00 Morphine; hb 19:00 PENICILLINS; hb 19:00 Sulfa (Sulfonamide Antibiotics); hb 19:00 Tegretol; hb 19:00 Zantac; hb - Home Meds: 23:24 clarithromycin 500 mg Oral tab 1 tab 2 times per day [Active]; Eliquis 2.5 mg oral tab jb4 [Active]; Multaq 400 mg oral tab [Active]; midodrine 5 mg oral tab 1 tabs twice a day [Active]; liothyronine 5 mcg oral tab 1 tab once daily [Active]; levofloxacin 500 mg Oral tab 1 tab once daily [Active]; cinacalcet oral 30mg oral 1 tab once daily [Active]; hydrocortisone 10 mg Oral tab 2 tablets by mouth every morning and 1 tablet every evening. [Active]; duloxetine 60 mg oral cpDR 1 cap once daily [Active]; - PMHx: 19:00 Cutaneous abscess of right lower limb; Diabetes - IDDM; Dialysis; Hypothyroidism; hb - PSHx: 19:00 Appendectomy; kidney transplants; Cholecystectomy; hb - Immunization history:: Adult Immunizations up to date. - Social history:: Smoking status: Patient denies any tobacco usage or history of. Screenin:00 Abuse screen: Denies threats or abuse. Nutritional screening: No deficits noted. jb4 Tuberculosis screening: No symptoms or risk factors identified. Fall Risk None identified. Assessment: 19:00 General: Appears in no apparent distress. uncomfortable, Behavior is calm, cooperative. jb4 Pain: Denies pain. Neuro: Level of Consciousness is awake, alert, obeys commands, Oriented to person, time. Cardiovascular: Patient's skin is warm and dry. Respiratory: Airway is patent Respiratory effort is even, unlabored, Respiratory pattern is regular, symmetrical. GI: No signs and/or symptoms were reported involving the gastrointestinal system. : No signs and/or symptoms were reported regarding the genitourinary system. EENT: No signs and/or symptoms were reported regarding the EENT system. Derm: Skin is intact, Skin is dry, Skin is normal, Skin temperature is warm. Musculoskeletal: Circulation, motion, and sensation intact. Range of motion: intact in all extremities. 19:15 Reassessment: BGL noted at 61, temp of 103.2, provider notified, see MAR, given jb4 grapejuice. 20:25 Reassessment: BGL increased to 108. jb4 20:30 Reassessment: Patient and/or family updated on plan of care and expected duration. Pain jb4 level reassessed. Patient is alert, oriented x 3, equal unlabored respirations, skin warm/dry/pink. PT is now A\T\0x4 has returned to baseline orientation after BGL increasing. 21:30 Reassessment: Patient and/or family updated on plan of care and expected duration. Pain jb4 level reassessed. Patient is alert, oriented x 3, equal unlabored respirations, skin warm/dry/pink. PT remains A\T\Ox4. reports feeling better. 22:30 Reassessment: Crea 7.51 CPK 1353 CKMB 14.0 Troponin 0.63 called by [facility] provider rr5 aware. 22:40 Reassessment: Patient appears in no apparent distress at this time. Patient and/or jb4 family updated on plan of care and expected duration. Pain level reassessed. Patient is alert, oriented x 3, equal unlabored respirations, skin warm/dry/pink. 23:47 Reassessment: Patient appears in no apparent distress at this time. Patient and/or jb4 family updated on plan of care and expected duration. Pain level reassessed. Patient is alert, oriented x 3, equal unlabored respirations, skin warm/dry/pink. 06/10 00:45 Reassessment: Patient appears in no apparent distress at this time. Patient and/or jb4 family updated on plan of care and expected duration. Pain level reassessed. Patient is alert, oriented x 3, equal unlabored respirations, skin warm/dry/pink. Vital Signs: 06/09 18:54 BP 141 / 66; Pulse 91; Resp 14; Temp 100.5(O); Pulse Ox 96% on R/A; Weight 90 kg; hb Height 5 ft. 3 in. (160.02 cm); Pain 0/10; 19:15 BP 135 / 72; Pulse 90; Resp 18; Temp 103.2(O); Pulse Ox 97% on R/A; lp1 20:30 BP 133 / 54; Pulse 87; Resp 13; Temp 103.1(O); Pulse Ox 97% on R/A; jb4 21:30 BP 106 / 53; Pulse 87; Resp 14; Temp 102.5(O); Pulse Ox 99% on R/A; jb4 22:30 BP 112 / 62; Pulse 87; Resp 19; Temp 100.6(O); Pulse Ox 97% on R/A; jb4 23:30 BP 103 / 56; Pulse 86; Resp 17; Temp 99.9(O); Pulse Ox 99% on R/A; Pain 0/10; jb4 06/10 00:45 BP 106 / 56; Pulse 88; Resp 16; Pulse Ox 99% on R/A; jb4 06/09 18:54 Body Mass Index 35.15 (90.00 kg, 160.02 cm) hb ED Course: 06/09 18:54 Patient arrived in ED. hb 19:00 Triage completed. hb 19:00 Arm band placed on. hb 19:00 Patient has correct armband on for positive identification. Bed in low position. Call jb4 light in reach. Side rails up X 1. threat monitoring analyst on. Pulse ox on. NIBP on. 19:04 Jared Bernal MD is Attending Physician. [facility] 19:32 Braydon Escobar, RN is Primary Nurse. jb4 20:26 Chest Single View XRAY In Process Unspecified. EDMS 20:50 Inserted saline lock: 20 gauge in left EJ, using aseptic technique. Blood collected. By lp1 DENNIS Goddard. 21:30 CT Abd/Pelvis - Without Contrast In Process Unspecified. EDMS 21:32 CT Head Brain wo Cont In Process Unspecified. EDMS 23:36 Sivakumar Mckeon MD is Hospitalizing Provider. [facility] 06/10 01:17 No provider procedures requiring assistance completed. Patient admitted, IV remains in jb4 place. Administered Medications: 06/09 19:30 Drug: Tylenol 1000 mg Route: PO; jb4 20:30 Follow up: Response: No adverse reaction; Temperature is unchanged [facility] 21:55 Drug: LevaQUIN 500 mg Volume: 100 ml; Route: IVPB; Infused Over: 60 mins; Site: left jb4 jugular; 22:55 Follow up: Response: No adverse reaction; IV Status: Completed infusion; IV Intake: jb4 100ml 21:57 Not Given (Physician Discretion): NS 0.9% (30 ml/kg) 30 ml/kg IV at bolus once; Sepsis [facility] Protocol Intake: 22:55 IV: 100ml; Total: 100ml. [facility] Outcome: 23:38 Decision to Hospitalize by Provider. [facility] 06/10 01:17 Admitted to Med/surg accompanied by tech, via stretcher, with chart, Report called to jbAntione Varela RN Condition: stable Discharge instructions given to patient, Instructed on the need for admit, Demonstrated understanding of instructions. 01:36 Patient left the ED. [facility] Signatures: Dispatcher [employer] Maddy Narayan, TIARA RN lp1 Akua Bradford, TIARA RN Braydon Escobar, RN RN 4 Dennis Patel, TIARA RN rr5 Jared Bernal MD MD [facility] Corrections: (The following items were deleted from the chart) 06/09 20:48 20:25 Reassessment: BGL increased to 108 lp1 jb4
[2020-06-09] MEDS ORDERED: IPRATROPIUM BROM 0.5MG/2.5ML NEB PRN (23:42)
[2020-06-09] MEDS ORDERED: ONDANSETRON 4 MG/2 ML VIAL IV PRN (23:42)
[2020-06-09] MEDS ORDERED: ALBUTEROL 2.5 MG/3 ML NEB SOL NEB PRN (23:42)
[2020-06-10 02:45] VITALS: BMI 35.1
[2020-06-10] MEDS: ACETAMINOPHEN 500 MG TAB PO PRN ×2 (03:52→10:45)
[2020-06-10] MEDS ORDERED: GLUCAGON 1 MG/VIAL IM PRN (07:11)
[2020-06-10] MEDS ORDERED: D50W 25 GM/50 ML SYRINGE/VIAL IV PRN (07:11)
[2020-06-10] MEDS: INSULIN -REGULAR HUMAN 50 UNIT/0.5 ML ML SQ SCH ×4 (07:30→21:00)
[2020-06-10 08:08] LABS: Absolute Lymphocytes (CBC) 0.6 K/uL (0.7-4.9); Basophils % 0.7 % (0-1.3); Hematocrit 24.3 % (36.0-45.0); Lymphocytes % 8.8 % (15.3-44.8); MPV 9.3 fL (7.6-11.3); RBC Red Blood Cell Count 2.78 M/uL (3.86-4.86)
[2020-06-10 08:31] LABS: Potassium 3.1 mmol/L (3.5-5.1)
--- NOTE | 2020-06-10 08:38 | EKG ---
Test Date: 2020-06-10 Test Time: 03:12:14 Automobile Sales Consultant: RT Gore MEASUREMENT RESULTS: Intervals: Rate: 82 IA: 162 QRSD: 86 QT: 412 QTc: 481 [place]: P: 60 IA: 162 QRS: 1 T: 45 INTERPRETIVE STATEMENTS: Sinus rhythm with marked sinus arrhythmia Anterior infarct, age undetermined Abnormal ECG Compared to ECG 01/31/2018 14:56:02 No significant changes Electronically Signed On 06-10-20 08:38:06 CDT by Giovanny Patel
--- NOTE | 2020-06-10 08:39 | EKG ---
Test Date: 2020-06-09 Test Time: 20:26:39 Metal Storage Worker: EMMANUEL MEASUREMENT RESULTS: Intervals: Rate: 89 NM: 164 QRSD: 76 QT: 378 QTc: 459 [place]: P: 51 NM: 164 QRS: -6 T: 50 INTERPRETIVE STATEMENTS: Normal sinus rhythm Normal ECG Compared to ECG 01/31/2018 14:56:02 Myocardial infarct finding no longer present Electronically Signed On 06-10-20 08:38:13 CDT by Giovanny Patel
[2020-06-10 09:00] LABS: CKMB Creatine Kinase MB 18.8 ng/mL (0.3-3.6)
[2020-06-10] MEDS ORDERED: HYDROCORTISONE SUC 100 MG INJ IV ONE (09:12)
[2020-06-10] MEDS: DRONEDARONE 400 MG TAB PO SCH ×2 (10:44→22:59)
[2020-06-10] MEDS: MIDODRINE HCL 5 MG TABLET PO SCH (10:44)
[2020-06-10] MEDS: APIXABAN 2.5 MG TABLET PO SCH ×2 (10:44→22:59)
[2020-06-10] MEDS: HYDROCORTISONE 10 MG TAB PO SCH ×2 (10:45→23:00)
[2020-06-10] MEDS ORDERED: WATER FOR INJ,STERILE 10 ML IV ONE (10:45)
[2020-06-10] MEDS: TRAMADOL HCL 50 MG TAB PO PRN ×2 (11:18→22:59)
--- NOTE | 2020-06-10 12:54 | CON ---
Date of Consultation: 06/10/2020 Reason For Consultation: Elevated BUN and creatinine, end-stage renal disease. History Of Present Illness: This is a 59-year-old female, well known to me from dialysis with significant past medical history of end-stage renal disease, on dialysis at [facility] through left arm AV fistula, hypertension, hyperlipidemia, diabetes complicated with neuropathy and nephropathy, atrial fibrillation, the patient came to the hospital that she is having diarrhea for the last few weeks. According to her, she was placed on Levaquin. Her symptoms got worse. For that reason, reported to the emergency room. In the emergency room, found to have electrolyte imbalance and elevation in BUN and creatinine with elevation in cardiac enzymes. Cardiology was consulted and we have been consulted. The patient denied taking any nonsteroidal. No other change in her medication. Past Medical History: Includes, 1. Hypertension. 2. Diabetes complicated with neuropathy and nephropathy. 3. End-stage renal disease, on hemodialysis, TTS through left arm AV fistula. 4. Anemia. 5. Atrial fibrillation. Past Surgical History: Includes, 1. Kidney transplant. 2. AV fistula creation. 3. Cholecystectomy. Allergies: TO ZANTAC, ASPIRIN, CODEINE, MORPHINE, SULFA, TEGRETOL AND XANAX. Family History: Positive for hypertension. Social History: Lives alone. Denies smoking. Denies drinking. Denies drugs abuse. Current Medications: In the hospital include, 1. Tylenol. 2. Eliquis. 3. Hydrocortisone. 4. Insulin. 5. Levaquin. 6. Midodrine. 7. Zofran. 8. Tramadol. Home Medication: Include, 1. Tramadol. 2. Levaquin. 3. Levothyroxine. 4. Duloxetine. 5. Sensipar. 6. Eliquis. 7. Calcium carbonate. Review of Systems: Head and Neck: No red eye. No ear pain. GI: Has diarrhea. Has nausea. No vomiting. : No polyuria. No dysuria. No hematuria. 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 Respiratory: No shortness of breath. Cardiovascular: Has palpitation. No chest pain. Endocrine: No polydipsia. Skin: No rash. Physical Examination: General: When I saw the patient, patient lying in bed, comfortable. Vital Signs: Blood pressure of 107/57, pulse of 80 afebrile. Chest: Clear to auscultation. Heart: S1, S2. Systolic murmur. Abdomen: Soft, nontender. Extremities: Trace edema. Neurological: Alert and oriented x3. No focal. Laboratory Data: Patient's WBC 6.8, H and H 8/24.3, platelets 163. Sodium 139, potassium 3.1, bicarb 23, BUN 49, creatinine 8.5, calcium 7.3. CK-MB 18, CPK of 1500. Assessment And Plan: 1. End-stage renal disease with hypokalemia. I am going to go ahead and dialyze the patient on high potassium bath and we will monitor. We are not going to challenge the patient as the patient has low blood pressure. 2. Secondary hyperparathyroid. Continue current binder. Continue Sensipar. 3. Hypokalemia secondary to gastrointestinal loss. Patient is going to be dialyzed on high potassium bath. 4. Hyponatremia secondary to renal failure. 5. Diarrhea. Patient did not respond to Levaquin. I am going to go ahead and switch her to Flagyl and we will follow up. 6. Diabetes, as by primary. Thank you Dr. Mckeon for allowing us to participate in the care of your patient. Time spend for patient Care face to face , ordering and discussing the plan of care with staff 65 min ELISEO Voice ID: [id number] Report ID: [id number] [place]
--- NOTE | 2020-06-10 14:30 | RAD REPORT ---
EXAM DESCRIPTION: Head Brain Wo Cont CLINICAL HISTORY: 59 years Female AMS COMPARISON: CT head without contrast January 29, 2018 TECHNIQUE: Contiguous axial images of the brain were obtained without the administration of intraven ous contrast.This exam was performed according to our departmental dose-optimization program which in cludes use of Automated Exposure Control, adjustment of the mA and/or kV according to patient size an d/or use of iterative reconstruction technique. DLP: 844 mGy*cm FINDINGS: Brain: No acute intracranial hemorrhage. No extra-axial collection. No mass effect or rayo iation. Unchanged rounded hyperdensity measuring 0.9 x 0.9 cm in the region of the suprasellar cister n. Prominence of the sulci and cisterns. Confluent periventricular and subcortical white matter hypod ensity is noted. Ventricles: Prominence of ventricular system without hydrocephalus. Globes and orbits: No acute abnormality. Bones: No acute osseous finding Paranasal sinuses: Paranasal sinuses are clear. Mastoid air cells: Well pneumatized. Soft tissues: Within normal limits IMPRESSION: No acute intracranial hemorrhage, hydrocephalus or herniation. Rounded hypodensity measuring 0.9 x 0.9 cm in the region of the suprasellar cistern versus floor of t he third ventricle, unchanged from prior exam. Cerebral volume loss and chronic small vessel ischemic changes Electronically signed by: Emerson Esquivel DO 06/09/2020 10:02 PM CDT Due to temporary technical issues with the PACS/Fluency reporting system, reports are being signed by the in house radiologist without review as a courtesy to ensure prompt reporting. The interpreting r adiologist is fully responsible for the content of the report.
--- NOTE | 2020-06-10 14:33 | RAD REPORT ---
EXAM DESCRIPTION: CT Abdomen and Pelvis Without Intravenous Contrast CLINICAL HISTORY: The patient is 59 years old and is Female; ABD PAIN TECHNIQUE: Axial computed tomography images of the abdomen and pelvis without intravenous contrast. Sagittal and coronal reformatted images were created and reviewed. This CT exam was performed usi ng one or more of the following dose reduction techniques: automated exposure control, adjustment o f the mA and/or kV according to patient size, and/or use of iterative reconstruction technique. DLP: 1379 mGy*cm COMPARISON: None. FINDINGS: LUNG BASES: Unremarkable. No mass. No consolidation. PLEURAL SPACE: Right lower lobe opacity with small lucencies and air bronchograms. No pleural effu jamey. HEART: Visualized heart is normal. ABDOMEN: LIVER: Unremarkable. GALLBLADDER AND BILE DUCTS: Prior cholecystectomy. No ductal dilation. PANCREAS: Unremarkable. No ductal dilation. SPLEEN: Unremarkable. No splenomegaly. ADRENALS: Unremarkable. No mass. KIDNEYS AND URETERS: Advanced bilateral renal atrophy. No obstructing stones. No hydronephrosis. STOMACH AND BOWEL: Unremarkable. No obstruction. No mucosal thickening. PELVIS: APPENDIX: No findings to suggest acute appendicitis. BLADDER: Unremarkable. No stones. REPRODUCTIVE: Prior hysterectomy. Heterogenous soft tissue densities in the bilateral adnexa is me asuring up to 5.3 cm on the left. ABDOMEN and PELVIS: INTRAPERITONEAL SPACE: Unremarkable. No free air. No significant fluid collection. BONES/JOINTS: Evidence of chronic fracture dislocation versus long standing left hip dysplasia wit h advanced erosive changes of the acetabulum and nonvisualization of the femoral head. SOFT TISSUES: Unremarkable. VASCULATURE: Vascular calcifications. No abdominal aortic aneurysm. LYMPH NODES: Unremarkable. No enlarged lymph nodes. IMPRESSION: 1. Prior hysterectomy. Heterogenous soft tissue densities in the bilateral adnexa is m easuring up to 5.3 cm on the left. Consider pelvic ultrasound for further evaluation. 2. Right lower lobe opacity highly suggestive of pneumonia. 3. Evidence of chronic fracture dislocation versus long standing left hip dysplasia with advanced e rosive changes of the acetabulum and nonvisualization of the femoral head. 4. Findings suggestive of renal osteodystrophy. Electronically signed by: Emerson Esquivel DO 06/09/2020 9:58 PM CDT Due to temporary technical issues with the PACS/Fluency reporting system, reports are being signed by the in house radiologist without review as a courtesy to ensure prompt reporting. The interpreting r adiologist is fully responsible for the content of the report.
[2020-06-10] MEDS: ALBUMIN HUMAN 25% 50 ML IV ONE ×2 (16:00→16:10)
[2020-06-10] MEDS: METRONIDAZOLE 500mg IVPB 500 MG/100 ML BAG IV SCH (17:00)
[2020-06-11] MEDS: METRONIDAZOLE 500mg IVPB 500 MG/100 ML BAG IV SCH ×3 (01:21→17:36)
[2020-06-11] MEDS: DRONEDARONE 400 MG TAB PO SCH ×2 (08:31→21:33)
[2020-06-11] MEDS: INSULIN -REGULAR HUMAN 50 UNIT/0.5 ML ML SQ SCH ×4 (08:31→21:35)
[2020-06-11] MEDS: HYDROCORTISONE 10 MG TAB PO SCH ×2 (08:32→21:34)
[2020-06-11] MEDS: APIXABAN 2.5 MG TABLET PO SCH ×2 (08:32→21:34)
[2020-06-11] MEDS: MIDODRINE HCL 5 MG TABLET PO SCH (08:32)
--- NOTE | 2020-06-11 09:10 | ECHO ---
HEIGHT: 5 ft 3 in WEIGHT: 198 lb 0 oz DATE OF STUDY: 06/10/[address]: Ariel Mckeon MD 2-DIMENSIONAL: YES M.MODE: YES DOPPLER: YES COLOR FLOW: YES TDS: NO PORTABLE: NO DEFINITY: NO BUBBLE STUDY: NO DIAGNOSIS: ABNORMAL CARDIAC ENZYMES CARDIAC HISTORY: CATHERIZATION: NO SURGERY: NO PROSTHETIC VALVE: NO PACEMAKER: NO MEASUREMENTS (cm) DIASTOLIC (NORMALS) SYSTOLIC (NORMALS) IVSd 1.0 (0.6-1.2) LA Diam 2.9 (1.9-4.0) LVEF 45% LVIDd 3.4 (3.5-5.7) LVIDs 2.7 (2.0-3.5) %FS 22% LVPWd 1.2 (0.6-1.2) Ao Diam 2.6 (2.0-3.7) 2 DIMENSIONAL ASSESSMENT: RIGHT ATRIUM: NORMAL LEFT ATRIUM: NORMAL RIGHT VENTRICLE: NORMAL LEFT VENTRICLE: APPREARS NORMAL TRICUSPID VALVE: NORMAL MITRAL VALVE: MILD MITRAL ANNULAR CALCIFICATION PULMONIC VALVE: NORMAL AORTIC VALVE: MILD CALCIFICATION PERICARDIAL EFFUSION: NONE AORTIC ROOT: NORMAL LEFT VENTRICULAR WALL MOTION: APPEARS NORMAL DOPPLER/COLOR FLOW: NORMAL COMMENTS: LEFT VENTRICULAR EJECTION FRACTION APPEARS NORMAL WITH EJECTION FRACTION 50-55%. NORMAL WALL MOTION GROSSLY APPEARS NORMAL. CONTRAST STUDY IS RECOMMENDED FOR BETTER EVALUATION. MILD AORTIC VALVE CALCIFICATION WITH NO AORTIC STENOSIS. TECHNOLOGIST: Rony YU
[2020-06-11] MEDS ORDERED: EPOETIN 4,000 UNIT/ML VIAL IV SCH (12:00)
--- NOTE | 2020-06-11 12:04 | P.PN ---
Subjective Date of Service: 06/11/20 Subjective Pt with ESRD , was complaining of weakness and diarrhea , presented for worsening symptoms Today stool is more solid , have 1-2 BM daily HD tomorrow will resume epogen Physical exam general: AAOX3, NAD , obese Neck; Supple, No elevated JVD hear: RRR, normal S1,2 no murmur or rub Chest: CTAB, no rlaes or wheezes Abdomen: Soft , Nt Extremities No edema or ulcer A/P ESRD on HD TTSat HS as per schedule renal dose meds Aneia of chronic disease will resume epogen gastroenteritis cont Abx as per primary team will hold binders hypokalmeia HD with High K bath rhabdomyolysis will cont to monitor HD with low UF Physical Examination - Vital Signs Temperature: 98.5 F Blood Pressure: 115/57 Pulse: 79 Respirations: 18 Pulse Ox (%): 93
--- NOTE | 2020-06-11 12:19 | PN ---
Date of Progress Note: 06/11/2020 Subjective: The patient was seen this morning for followup. No new complaints or problems reported by her, lying in bed, not in distress. Objective: Vital Signs: Reviewed. HEENT: Unremarkable. Lungs: Clear to auscultation. No rales. No wheezing. Not in any respiratory distress. Heart: Sounds normal. Abdomen: Soft. Bowel sounds normal. No guarding, rigidity, tenderness, or distention. Extremities: No leg edema. Right leg has a dressing present, which is due to be changed today. Impression: 1.Pneumonia. 2.End-stage renal disease, on hemodialysis. 3.Hypertension. 4.Diabetes mellitus. 5.Anemia due to chronic kidney disease. Plan: We will continue current medications. The patient is on Flagyl for diarrhea problem and she r eceived 1 dose of Levaquin in the emergency room. We will go ahead and start her on ceftriaxone 1 g IV daily. Repeat chest x-ray today. Stool test was ordered and we will [facility] for right leg dressing change. Her blood pressure looks lot better today 133/67. This morning, she looks better compared to yesterday and feels better. I will see her tomorrow. Depending on her con dition, we will decide if she can be discharged to go home tomorrow with oral antibiotics or not. DANA/MODL Voice ID: [id number] Report ID: [id number]
[2020-06-11] MEDS: CEFTRIAXONE/SWI 1gm 1 GM/10 ML SYR IV SCH (12:42)
--- NOTE | 2020-06-11 13:32 | RAD REPORT ---
EXAM DESCRIPTION: Jorge Single View06/11/2020 1:26 pm CLINICAL HISTORY: Chest pain COMPARISON: June 09, 2020 FINDINGS: Partial resolution in the right upper lobe infiltrate No other change IMPRESSION: Improvement in the right upper lobe pneumonia
[2020-06-11 15:17] LABS: Albumin 2.6 g/dL (3.4-5.0); Phosphorus 2.5 mg/dL (2.5-4.9); Potassium 4.1 mmol/L (3.5-5.1)
[2020-06-11] MEDS: TRAMADOL HCL 50 MG TAB PO PRN (21:34)
[2020-06-11] MEDS ORDERED: Levofloxacin500mg IV 500 MG/100 ML BAG IV SCH (22:00)
[2020-06-12] MEDS: METRONIDAZOLE 500mg IVPB 500 MG/100 ML BAG IV SCH ×3 (01:10→16:47)
[2020-06-12 07:06] LABS: Albumin 2.4 g/dL (3.4-5.0); Phosphorus 3.3 mg/dL (2.5-4.9); Potassium 3.7 mmol/L (3.5-5.1)
[2020-06-12] MEDS: INSULIN -REGULAR HUMAN 50 UNIT/0.5 ML ML SQ SCH ×4 (07:30→21:14)
[2020-06-12] MEDS ORDERED: D50W 25 GM/50 ML SYRINGE/VIAL IV PRN (08:22)
[2020-06-12] MEDS ORDERED: GLUCAGON 1 MG/VIAL IM PRN (08:22)
[2020-06-12] MEDS ORDERED: INSULIN GLARGINE 100 UNITS/ML SQ ONE (08:30)
[2020-06-12] MEDS: HYDROCORTISONE 10 MG TAB PO SCH ×2 (09:18→21:14)
[2020-06-12] MEDS: DRONEDARONE 400 MG TAB PO SCH ×2 (09:18→21:14)
[2020-06-12] MEDS: APIXABAN 2.5 MG TABLET PO SCH ×2 (09:18→21:14)
[2020-06-12] MEDS: CEFTRIAXONE/SWI 1gm 1 GM/10 ML SYR IV SCH (09:18)
--- NOTE | 2020-06-12 09:40 | PN ---
Date of Progress Note: 06/12/2020 Subjective: The patient was seen this morning for followup. She was lying in bed, not in any distre ss. Overall feels better. No new complaints or problems reported by her. Objective: Vital Signs: Reviewed. HEENT: Unremarkable. Lungs: Clear to auscultation. Not in any respiratory distress. Heart: Sounds normal. Abdomen: Soft. Bowel sounds normal. No guarding, rigidity, tenderness, or distention. Extremities: No leg edema. Laboratory Data: Sodium 142, potassium 3.7, chloride 107, bicarb 25, BUN 54, creatinine 6.84, glucos e 173. Impression: 1.Pneumonia. 2.Diabetes mellitus. 3.End-stage renal disease, on hemodialysis. 4.Anemia due to chronic kidney disease. Plan: We will continue current antibiotic, which is ceftriaxone. Yesterday's chest x-ray shows impr ovement in right upper lobe pneumonia. We will continue to follow with shoeshiner, and depending o n the patient's condition, we will decide about possible discharge tomorrow. Fingerstick blood sugar readings reviewed. We will start her on Lantus 20 units subcutaneous injection daily, first dose to be given today. Continue sliding scale insulin. DANA/MODL Voice ID: [id number] Report ID: [id number]
[2020-06-12] MEDS: MIDODRINE HCL 5 MG TABLET PO SCH (12:35)
[2020-06-12 13:55] LABS: C.diff Antigen/Toxin Ag neg : Tox neg (NEG : NEG)
--- NOTE | 2020-06-12 15:00 | P.PN ---
Subjective Date of Service: 06/12/20 Subjective Pt with ESRD , was complaining of weakness and diarrhea , presented for worsening symptoms Today Seen and examined during HD no new complaints symptoms near resolved Cont Abx Physical exam general: AAOX3, NAD , obese Neck; Supple, No elevated JVD hear: RRR, normal S1,2 no murmur or rub Chest: CTAB, no rlaes or wheezes Abdomen: Soft , Nt Extremities No edema or ulcer A/P ESRD on HD TTSat HS as per schedule renal dose meds Aneia of chronic disease on epogen gastroenteritis cont Abx as per primary team will hold binders hypokalmeia HD with High K bath rhabdomyolysis will cont to monitor Physical Examination - Vital Signs Temperature: 97.4 F Blood Pressure: 111/57 Pulse: 59 Respirations: 18 Pulse Ox (%): 95
--- NOTE | 2020-06-12 21:58 | CON ---
Date of Consultation: 06/10/2020 The patient admitted on 06/09/[address] Mckeon's service. The patient was seen on 06/10/2020. Reason For Consultation: Elevated troponin. History Of Present Illness: Ms. Hutson is a 59-year-old woman. She is known to me from previous [facility] e visit. She has a history of kidney transplantation, paroxysmal atrial fibrillation, diabetes, hypo thyroidism, end-stage renal disease on hemodialysis and came in with fever, weakness, altered mental status, was found to have elevated troponin as well as elevated CPK and MB. I was consulted. She wa s also hypokalemic, potassium of 3.1; anemic with hemoglobin of 8.1; her creatinine was 8.56. EKG sh owed normal sinus rhythm. Chest x-ray was negative. Past Medical History: As stated above. Allergies: SHE IS ALLERGIC TO PENICILLIN, ASPIRIN, XANAX, CODEINE, SULFA, AND FISH. Review of Systems: Negative. Social History: Negative. Family History: Noncontributory. Medications: At home include Multaq and Eliquis. Physical Examination: General: Ms. Hutson was pleasant, alert and oriented x3, feeling better already. Vital Signs: Stable. Afebrile. HEENT: Negative. Neck: Supple with no bruit. Chest: Clear. Cardiac: Revealed a regular rhythm and rate with S4 gallops. Abdomen: Benign. Extremities: Revealed no clubbing, cyanosis, or edema. Diagnostic Data: Stated above. EKG was normal. COVID test was negative. Impression And Plan: I think Ms. Hutson's symptoms are not cardiac in nature. I think her elevated tr oponin, CPK, and MB are consistent more with rhabdomyolysis. She has paroxysmal atrial fibrillation, but she is in normal sinus rhythm on Multaq and Eliquis. She is COVID negative. She is presently g etting her Eliquis and Multaq. She is on insulin, antibiotics, midodrine, and inhalers. There is an echocardiogram pending that will be ordered by Dr. Mckeon. We will see what that shows before making final decisions. she has had negative cardiac workup in my office in the recent past. e needs her potassium gently supplemented. She needs to be gently hydrated. I will discuss the case further with Dr. Mckeon. NB/MODL Voice ID: [id number] Report ID: [id number]
[2020-06-13] MEDS: METRONIDAZOLE 500mg IVPB 500 MG/100 ML BAG IV SCH ×2 (00:27→09:56)
[2020-06-13] MEDS: TRAMADOL HCL 50 MG TAB PO PRN (01:37)
[2020-06-13 06:31] LABS: Albumin 2.3 g/dL (3.4-5.0); Phosphorus 2.9 mg/dL (2.5-4.9); Potassium 3.5 mmol/L (3.5-5.1)
--- NOTE | 2020-06-13 09:18 | HP ---
Date of Admission: 06/09/2020 Chief Complaint: Fever, shortness of breath, cough. History Of Present Illness: This is a 59-year-old female patient, who had some back pain and recentl y she was started on some antibiotic by her heating operators engineer. Yesterday actually, the patient called my office and she was scheduled to have TeleVisit with me. When I called her for the TeleVisit, EMS was at her house in process of bringing her to the emergency room. The patient was brought to the ER be cause she was feeling worse, was having fever, low short of breath. She denies having any expectorat ion or hemoptysis. No vomiting or diarrhea. The patient was evaluated in the ER, she was admitted t o the hospital with pneumonia problem. Allergies: TO ALPRAZOLAM, ASPIRIN, CARBAMAZEPINE, MORPHINE, CODEINE, RANITIDINE, PENICILLIN, SULFA. Medications: List reviewed. Review of Systems: Constitutional: As mentioned above. Respiratory: As mentioned above. Musculoskeletal: As mentioned above. All other systems reviewed and negative. Past Medical History: Significant for diabetic neuropathy, hypothyroidism, diabetes mellitus, adrena l insufficiency, chronic atrial fibrillation, end-stage renal disease on hemodialysis, osteoarthritis at multiple sites, anemia due to chronic kidney disease. Past Surgical History: Cataract surgery, breast biopsy, cholecystectomy, appendectomy. Kidney trans plant twice, first 1 in 1976 and second time in 1996. Hip surgery. Family History: Father , details unknown. Mother due to pancreatic cancer. Social History: Negative for smoking and alcohol use. Physical Examination: Vital Signs: Temperature 98.4, pulse 97, respiratory rate 14, blood pressure 97/53, oxygen saturatio n 100%, height 5 feet 3 inches, weight 198 pounds. General: Awake, alert, oriented, not in distress. HEENT: Head atraumatic, normocephalic. Conjunctivae nonerythematous. Sclerae white. Mouth, no thr ush or edema noted. Ears/Nose, no mass, lesion, discharge noted. Neck: Supple. No JVD, lymph nodes, bruit, thyromegaly noted. Lungs: The patient has some rales noted in right upper lung somers. Not using any accessory muscles of respiration. Heart: Normal heart sounds, no murmur or gallop. Abdomen: Soft, bowel sounds normal. No guarding, rigidity, tenderness, mass, hepatosplenomegaly, dis tention, or bruit noted. Extremities: No leg edema. No calf tenderness. Skin: No rash, ulcer, cellulitis. Lymphatics: No lymph node enlargement in neck, supraclavicular, infraclavicular region. Neuro: No focal neurological deficit. Chest: Unremarkable. External Genitalia: Deferred. Rectal: Deferred. Laboratory Data: White count 7.6, hemoglobin 9.1, platelets 150. INR 1.24. Sodium 138, potassium 3 .4, chloride 103, bicarb 23, BUN 42, creatinine 7.51, glucose 148. Liver function tests unremarkable . CPK 1353, CK-MB 14, troponin 0.63, procalcitonin 4.11. Her COVID-19 test came back negative. Her chest x-ray shows right upper lobe pneumonia. Impression: 1.Pneumonia. 2.Adrenal insufficiency. 3.End-stage renal disease, on hemodialysis. 4.Type 2 diabetes mellitus with diabetic neuropathy. 5.Chronic atrial fibrillation. 6.Chronic anticoagulation therapy. 7.Anemia due to chronic kidney disease. 8.Osteoarthritis, multiple sites. 9.Hypothyroidism. 10.Rhabdomyolysis. Plan: Admit the patient to hospital for further evaluation and management of this problem. The patience ent is appropriate for inpatient and is expected to spend 2 midnights in the hospital. We will song nue home medications per order. The patient uses insulin pump at home and this morning her cartridge was empty. I have advised her to disconnected insulin pump and we will manage her diabetes with sli ding scale per order. We will continue antibiotics per order. Consult heating operators engineer for dialysis sup port. We will also consult store clerk for abnormal cardiac enzymes, which appears to be due to rha bdomyolysis. Echocardiogram was ordered. Details were discussed with store clerk. I will see her tomorrow for followup. The patient was given IV Solu-Cortef 1 time dose and her overall hydrocortiso ne will be continued. DANA/MODL Voice ID: [id number]
[2020-06-13] MEDS: MIDODRINE HCL 5 MG TABLET PO SCH ×2 (09:56→10:01)
[2020-06-13] MEDS: CEFTRIAXONE/SWI 1gm 1 GM/10 ML SYR IV SCH (09:56)
[2020-06-13] MEDS: HYDROCORTISONE 10 MG TAB PO SCH (09:56)
[2020-06-13] MEDS: DRONEDARONE 400 MG TAB PO SCH (09:56)
[2020-06-13] MEDS: APIXABAN 2.5 MG TABLET PO SCH (09:56)
[2020-06-13] MEDS: INSULIN -REGULAR HUMAN 50 UNIT/0.5 ML ML SQ SCH ×2 (09:57→13:07)
[2020-06-13 10:10] VITALS: BP 119/55; TEMP 97.2
--- NOTE | 2020-06-13 10:11 | RAD REPORT ---
EXAM DESCRIPTION: Jorge Single View06/13/2020 9:16 am CLINICAL HISTORY: Chest pain COMPARISON: June 11 FINDINGS: Minimal improvement in the right upper lobe opacities Remainder the lungs are hazy. This probably is secondary to a combination of overlying soft tissue an d technique rather than additional infiltrate. This can be monitored on subsequent exam The heart remains enlarged
--- NOTE | 2020-06-13 12:06 | P.PN ---
Subjective Date of Service: 06/13/20 Subjective Pt with ESRD , was complaining of weakness and diarrhea , presented for worsening symptoms Today still have diarrhea , but feels better Cont Abx can be discharged from nephrology point of view Physical exam general: AAOX3, NAD , obese Neck; Supple, No elevated JVD hear: RRR, normal S1,2 no murmur or rub Chest: CTAB, no rlaes or wheezes Abdomen: Soft , Nt Extremities No edema or ulcer A/P ESRD on HD TTSat HS as per schedule renal dose meds Aneia of chronic disease on epogen gastroenteritis cont Abx as per primary team will hold binders pneumonia cont Abx hypokalmeia HD with High K bath rhabdomyolysis will cont to monitor Physical Examination - Vital Signs Temperature: 97.2 F Blood Pressure: 119/55 Pulse: 62 Respirations: 18 Pulse Ox (%): 96
[2020-06-13 12:44] VITALS: O2SAT 100
--- NOTE | 2020-06-13 20:05 | DS ---
Date of Discharge: 06/13/2020 Disposition: Discharged to go home. Physical Examination: HEENT: Unremarkable. Lungs: Clear to auscultation. Heart: Sounds normal. Abdomen: Soft. Bowel sounds normal. No guarding, rigidity, tenderness, or distention. Extremities: No leg edema. Discharge Medications And Instructions: 1.Continue prior home . 2.Start cefuroxime 250 mg 1 tablet by mouth daily for 1 week. The patient to take it after dialysis with food. 3.Follow up at my office a week after. 4.The patient may use Imodium 2 mg 1 tablet by mouth 4 times a day as needed for diarrhea and the pa tient to eat yogurt daily and to take probiotic tablet daily. Hospital Course: A 59-year-old female patient admitted to the hospital with fever, shortness of gato th, cough. Please see dictated H and P for more information. The patient has been having some diarr hea for last 2 to 3 weeks and she has not used any antibiotic prior to onset of diarrhea. Her nephro logist Dr. Quintanilla prescribed her Levaquin, she took only 1 dose. Meanwhile, she ends up in the [facility] room. After she was evaluated in the ER, she was admitted to the hospital. The patient was a dmitted to the hospital with pneumonia. She has adrenal insufficiency and takes chronic steroid ther apy. She was given 1 dose of IV steroid and her usual dose of oral steroid medication was continued along with her other usual home medications including her anticoagulation therapy. Nephrology consul tation was obtained and Cardiology consultation was obtained. The patient had a mild case of rhabdom yolysis. No further cardiac intervention was suggested by magazine supervisor. Echocardiogram showed shiloh l ejection fraction. Internet Sales Consultant provided dialysis support. Her last dialysis was yesterday. She normally goes for dialysis on Sunday, , Sunday. Overall, her condition has improved. No shortness of breath, pneumonia. Continues to show improvement with antibiotic, which is ceftriaxone which was given during this hospital stay. She still has some diarrhea, reports having 4 soft bowel movements in the last 24 hours. Her stool C diff came back negative. Stool culture result is pendin g. The patient is tolerating diet very well. Hemodynamically, she is stable. Final Diagnoses: 1.Pneumonia. 2.Adrenal insufficiency. 3.Diarrhea. 4.End-stage renal disease, on hemodialysis. 5.Diabetes mellitus type 2 with diabetic neuropathy. 6.Chronic atrial fibrillation. 7.Chronic anticoagulation therapy. 8.Anemia due to chronic kidney disease. 9.Osteoarthritis, multiple sites. 10.Hypothyroidism. 11.Rhabdomyolysis. Laboratory Data: Last chemistry today; sodium 142, potassium 3.5, chloride 108, bicarb 26, BUN 34, c reatinine 4.31, glucose 241. Last CBC from 06/10/2020; white count 6.8, hemoglobin 8.1, platelets 16 3. DANA/MODL Voice ID: [id number] Report ID: [id number]
== END 2020-06-13 14:21 | disposition home or self-care (01) | DRG 193 ==
LOC: ER 18:48 → ERHOLD 23:50 → 2ND 06-10 01:11
PROVIDERS: ADMIT Internal Medicine; ATTEND Internal Medicine
DX: J18.9 Pneumonia, unspecified organism (principal); N18.6 End stage renal disease; Z94.0 Kidney transplant status; N25.81 Secondary hyperparathyroidism of renal origin; E87.1 Hypo-osmolality and hyponatremia; M62.82 Rhabdomyolysis; I12.0 Hypertensive chronic kidney disease with stage 5 chronic kidney disease or end stage renal disease; E27.40 Unspecified adrenocortical insufficiency; M19.90 Unspecified osteoarthritis, unspecified site; D63.1 Anemia in chronic kidney disease; E87.6 Hypokalemia; I48.0 Paroxysmal atrial fibrillation; K52.9 Noninfective gastroenteritis and colitis, unspecified; E78.5 Hyperlipidemia, unspecified; E11.40 Type 2 diabetes mellitus with diabetic neuropathy, unspecified; E11.22 Type 2 diabetes mellitus with diabetic chronic kidney disease; Z79.890 Hormone replacement therapy; Z79.01 Long term (current) use of anticoagulants; Z79.899 Other long term (current) drug therapy; Z99.2 Dependence on renal dialysis; Z90.49 Acquired absence of other specified parts of digestive tract; Z88.5 Allergy status to narcotic agent; Z60.2 Problems related to living alone; Z88.1 Allergy status to other antibiotic agents; Z88.8 Allergy status to other drugs, medicaments and biological substances; Z20.828 Contact with and (suspected) exposure to other viral communicable diseases
CPT/HCPCS: 36415; 70450; 71045; 74176; 80048; 80069; 80076; 82150; 82550; 82553; 82947; 83605; 83690; 83880; 84145; 84484; 85025; 85610; 85730; 86317; 86705; 86709; 87040; 87045; 87046; 87077; 87186; 87324; 87449; 87804; 90935; 93005; 93306; 94760; 96365; 99285; J0696; J1644; J1720; J1815; P9047; U0003

== ENCOUNTER 2021-06-27 15:10 | Emergency (ER) | payer OTHER, BC ==
[2021-06-27 18:38] LABS: Basophils % 1.1 % (0-1.3); Hematocrit 33.2 % (36.0-45.0); Lymphocytes % 14.3 % (15.3-44.8); MPV 9.2 fL (7.6-11.3); RBC Red Blood Cell Count 3.69 M/uL (3.86-4.86)
[2021-06-27 19:03] LABS: BUN Blood Urea Nitrogen 103 mg/dL (7-18); Bicarbonate 20 mmol/L (21-32); Glucose Level 494 mg/dL (74-106); Potassium 5.5 mmol/L (3.5-5.1); Sodium Level 131 mmol/L (136-145)
[2021-06-27] MEDS ORDERED: INSULIN -REGULAR HUMAN 50 UNIT/0.5 ML ML ONE ×2 (19:30→20:20)
[2021-06-27] MEDS ORDERED: NA CHLORIDE 0.9% 500 ML ONE (19:31)
[2021-06-27] MEDS ORDERED: NA CHLORIDE 0.9% 1,000 ML ONE (19:36)
[2021-06-27] MEDS ORDERED: ALBUTEROL 2.5 MG/3 ML NEB SOL ONE (19:37)
[2021-06-27] MEDS ORDERED: SOD POLYSTYREN SUL 15 GM/60 ML UCUP ONE (19:38)
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
[2021-06-27] MEDS ORDERED: MUPIROCIN 2% OINT 22GM TUBE TOP ONE (20:20)
[2021-06-27 21:07] VITALS: O2SAT 100
[2021-06-27 21:10] VITALS: BP 130/65; TEMP 97.5
--- NOTE | 2021-06-27 21:22 | RAD REPORT ---
EXAM DESCRIPTION: RAD - Chest Single View - 06/27/2021 8:33 pm CLINICAL HISTORY: COUGH Chest pain. COMPARISON: Chest Single View dated 06/13/2020; Chest Single View dated 06/11/2020; Chest Single View dated 06/09/2020; Chest Pa And Lat (2 Views) dated 12/10/2018 FINDINGS: Portable technique limits examination quality. Mild bilateral interstitial lung opacities are seen probably representing a viral infection/ bronchit is. The heart is normal in size. No displaced fractures.
--- NOTE | 2021-06-28 10:56 | EKG ---
Test Date: 2021-06-27 Test Time: 19:46:49 Soccer Commentator: MEASUREMENT RESULTS: Intervals: Rate: 63 MA: 182 QRSD: 96 QT: 464 QTc: 474 [place]: P: 61 MA: 182 QRS: 47 T: 75 INTERPRETIVE STATEMENTS: Normal sinus rhythm Low voltage QRS Cannot rule out Anterior infarct, age undetermined Abnormal ECG Compared to ECG 06/10/2020 03:12:14 Low QRS voltage now present Sinus arrhythmia no longer present Myocardial infarct finding still present Electronically Signed On 06-28-21 10:54:02 CDT by Giovanny Patel
== END 2021-06-27 21:02 | disposition home or self-care (01) ==
LOC: ER 15:10
DX: E10.65 Type 1 diabetes mellitus with hyperglycemia (principal); E10.22 Type 1 diabetes mellitus with diabetic chronic kidney disease; N18.6 End stage renal disease; T21.22XA Burn of second degree of abdominal wall, initial encounter; E87.5 Hyperkalemia; E66.9 Obesity, unspecified; Z99.2 Dependence on renal dialysis; Z88.0 Allergy status to penicillin; Z88.2 Allergy status to sulfonamides; Z88.5 Allergy status to narcotic agent; Z88.6 Allergy status to analgesic agent; Z91.048 Other nonmedicinal substance allergy status
CPT/HCPCS: 93005; 85025; 80048; 36415; 82010; 82947 ×2; 84484; 71045; 99284; J7040; J7030

== ENCOUNTER 2021-07-04 16:59 | Emergency (ER) | payer OTHER, BC ==
[2021-07-04 17:58] LABS: Absolute Lymphocytes (CBC) 1.1 K/uL (0.7-4.9); Hematocrit 31.4 % (36.0-45.0); Lymphocytes % 17.3 % (15.3-44.8); MPV 8.4 fL (7.6-11.3); RBC Red Blood Cell Count 3.48 M/uL (3.86-4.86)
[2021-07-04 18:40] LABS: Albumin 3.1 g/dL (3.4-5.0); Bilirubin Total 0.4 mg/dL (0.2-1.0); Potassium 4.8 mmol/L (3.5-5.1)
[2021-07-04] MEDS ORDERED: NA CHLORIDE 0.9% 250 ML ONE (19:46)
[2021-07-04] MEDS ORDERED: INSULIN -REGULAR HUMAN 50 UNIT/0.5 ML ML ONE ×2 (19:47→21:08)
--- NOTE | 2021-07-04 21:55 | EDPHYS ---
Physician Documentation [facility] Name: Jamila Hutson Age: 60 yrs Sex: Female : 1960 Arrival Date: 07/04/2021 Time: 17:16 Bed 17 Private MD: ED Physician Chris Zuñiga HPI: 07/04 17:51 This 60 yrs old Black Female presents to ER via EMS with complaints of High Blood Sugar.pm1 17:51 The patient or guardian reports hyperglycemia, that was potentially precipitated by pm1 Unknown. Onset: The symptoms/episode began/occurred today. Associated signs and symptoms: Pertinent positives: polydipsia, polyphagia, Onset today, Pertinent negatives: None. Current symptoms: In the emergency department the patient's symptoms are unchanged from the initial presentation. The patient has experienced similar episodes in the past, a few times, today's symptoms are similar, to previous hyperglycemic episode treated in the ER last week. The patient has been recently seen by a physician: 1 week(s) ago, with similar presenting complaints, and apparently given a diagnosis of hyperglycemia, and discharged home. Historical: - Allergies: 17:17 Alprazolam; bp 17:17 Aspirin; bp 17:17 Betadine; bp 17:17 Codeine; bp 17:17 Morphine; bp 17:17 PENICILLINS; bp 17:17 Sulfa (Sulfonamide Antibiotics); bp 17:17 Tegretol; bp 17:17 Zantac; bp - Home Meds: 17:17 hydrocortisone 10 mg Oral tab 2 tablets by mouth every morning and 1 tablet every bp evening. [Active]; cinacalcet 30mg Oral 1 tab once daily [Active]; clarithromycin 500 mg Oral tab 1 tab 2 times per day [Active]; duloxetine 60 mg Oral cpDR 1 cap once daily [Active]; Eliquis 2.5 mg Oral tab [Active]; levofloxacin 500 mg Oral tab 1 tab once daily [Active]; liothyronine 5 mcg Oral tab 1 tab once daily [Active]; midodrine 5 mg Oral tab 1 tabs twice a day [Active]; Multaq 400 mg Oral tab [Active]; - PMHx: 17:17 Cutaneous abscess of right lower limb; Diabetes - IDDM; Dialysis; Hypothyroidism; bp - Immunization history:: Adult Immunizations up to date. - Social history:: Smoking status: Patient denies any tobacco usage or history of. ROS: 17:52 Constitutional: Negative for fever, chills, and weight loss, Cardiovascular: Negative pm1 for chest pain, palpitations, and edema, Respiratory: Negative for shortness of breath, cough, wheezing, and pleuritic chest pain, Abdomen/GI: Negative for abdominal pain, nausea, vomiting, diarrhea, and constipation, Back: Negative for injury and pain, MS/Extremity: Negative for injury and deformity, Skin: Negative for injury, rash, and discoloration, Neuro: Negative for headache, weakness, numbness, tingling, and seizure. 17:52 Endocrine: Positive for polydipsia, polyphagia. 17:52 All other systems are negative. Exam: 17:52 Constitutional: This is a well developed, well nourished patient who is awake, alert, pm1 and in no acute distress. Head/Face: Normocephalic, atraumatic. 17:52 Back: No spinal tenderness. No costovertebral tenderness. Full range of motion. 17:52 Skin: Warm, dry with normal turgor. Normal color with no rashes, no lesions, and no evidence of cellulitis. MS/ Extremity: Pulses equal, no cyanosis. Neurovascular intact. Full, normal range of motion. 17:52 Cardiovascular: Exam negative for acute changes, Rate: normal, Rhythm: regular, Pulses: no pulse deficits are appreciated. 17:52 Respiratory: Exam negative for acute changes, respiratory distress, shortness of breath, Breath sounds: are clear throughout. 17:52 Neuro: Exam negative for acute changes, Orientation: is normal, Mentation: is normal, Motor: is normal, moves all fours, Sensation: is normal, no obvious gross deficits. Vital Signs: 18:35 BP 120 / 54; Pulse 71; Resp 17; Temp 97.9; Pulse Ox 100% ; bp 19:39 BP 144 / 54; Pulse 64; Resp 18; Pulse Ox 94% on R/A; lh3 21:55 BP 140 / 66; Pulse 66; Resp 18; Pulse Ox 100% on R/A; lh3 MDM: 17:17 Patient medically screened. pm1 18:52 ED course: Patient was concerned about possible over correction with insulin. During pm1 last ER visit she reports blood sugar dropped into the 90s when she got home. She felt this was too low. Therefore will address her hyperglycemia today incrementally with 5 units at a time as needed. Last time patient received 10 units at one time. 20:42 ED course: Patient glucose level 380, will administer additional insulin, 5 units. pm1 21:52 Data reviewed: vital signs. Counseling: I had a detailed discussion with the patient pm1 and/or guardian regarding: the historical points, exam findings, and any diagnostic results supporting the discharge/admit diagnosis, lab results, the need for outpatient follow up, to return to the emergency department if symptoms worsen or persist or if there are any questions or concerns that arise at home. 07/04 17:26 Order name: CBC with Diff pm1 07/04 17:26 Order name: CMP pm1 07/04 17:27 Order name: CBC with Automated Diff; Complete Time: 18:29 EDMS 07/04 17:27 Order name: Comprehensive Metabolic Panel; Complete Time: 18:48 EDMS 07/04 20:31 Order name: Glucose, Ancillary Testing; Complete Time: 21:42 EDMS 07/04 21:55 Order name: Glucose, Ancillary Testing EDMS 07/04 17:26 Order name: IV Saline Lock; Complete Time: 18:04 pm1 07/04 21:55 Order name: Glucose, Ancillary Testing; Complete Time: 22:10 EDMS Administered Medications: 19:29 Drug: Insulin Regular Human 5 units {Co-Signature: [email or web address] (Denise Kelly RN).} Route: df1 IVP; Site: Other; 22:42 Follow up: Response: No adverse reaction lh3 19:29 Drug: NS 0.9% 250 ml Route: IV; Rate: bolus; Site: Other; df1 22:41 Follow up: Response: No adverse reaction; IV Status: Completed infusion lh3 20:47 Drug: Insulin Regular Human 5 units {Co-Signature: [email or web address] (Denise Kelly RN).} Route: kg IVP; Site: left jugular; 21:56 Follow up: Response: No adverse reaction lh3 Disposition Summary: 07/04/21 21:54 Discharge Ordered Location: Home pm1 Problem: new pm1 Symptoms: have improved pm1 Condition: Stable pm1 Diagnosis - Hyperglycemia, unspecified pm1 Followup: pm1 - With: Emergency Department - When: As needed - Reason: Worsening of condition Followup: pm1 - With: Private Physician - When: 2 - 3 days - Reason: Recheck today's complaints, Continuance of care, Re-evaluation by your physician Discharge Instructions: - Discharge Summary Sheet pm1 - Hyperglycemia pm1 - Blood Glucose Monitoring, Adult pm1 - Diabetes Mellitus and Exercise pm1 - Diabetes Mellitus and Nutrition, Adult pm1 Forms: - Medication Reconciliation Form pm1 - Thank You Letter pm1 - Antibiotic Education pm1 - Prescription Opioid Use pm1 Addendum: 07/06/2021 07:09 Co-signature as Attending Physician, Chris Zuñiga MD I agree with the assessment and r n plan of care. Attestation: The patient's history, exam findings, diagnostics, and a summary of any interventions or procedures was reviewed in detail with Juan Christian NP. Signatures: Dispatcher [employer] EDChris Mirza MD MD rn Marinas, Patrick, NP BLOOD BANK CREDIT CLERK pm1 Leo Mott RN RN bp Shari Bermudez RN RN kg Furlich, Dawn df1 Denise Kelly RN 3 Denise Kelly RN 3
--- NOTE | 2021-07-04 21:55 | ER ---
Nurse's Notes [facility] Name: Jamila Hutson Age: 60 yrs Sex: Female : 1960 Arrival Date: 07/04/2021 Time: 17:16 Bed 17 Private MD: Diagnosis: Hyperglycemia, unspecified Presentation: 07/04 17:16 Chief complaint: EMS states: SENT BY HOME [facility] FOR HIGH BGL. PT ASYMPTOMATIC. bp Coronavirus screen: At this time, the client does not indicate any symptoms associated with coronavirus-19. Ebola Screen: No symptoms or risks identified at this time. Initial Sepsis Screen: Does the patient meet any 2 criteria? No. Patient's initial sepsis screen is negative. Does the patient have a suspected source of infection? No. Patient's initial sepsis screen is negative. Risk Assessment: Do you want to hurt yourself or someone else? Patient reports no desire to harm self or others. Onset of symptoms is unknown. 17:16 Method Of Arrival: EMS: [facility] bp 17:16 Acuity: ALLA 3 bp Triage Assessment: 17:17 General: Appears in no apparent distress. comfortable, obese, Behavior is calm, bp cooperative, appropriate for age. Pain: Denies pain. EENT: No deficits noted. Neuro: Level of Consciousness is awake, alert, obeys commands, Oriented to Appropriate for age. Cardiovascular: No deficits noted. Respiratory: No deficits noted. GI: No signs and/or symptoms were reported involving the gastrointestinal system. : No signs and/or symptoms were reported regarding the genitourinary system. Derm: No deficits noted. Musculoskeletal: No deficits noted. Historical: - Allergies: 17:17 Alprazolam; bp 17:17 Aspirin; bp 17:17 Betadine; bp 17:17 Codeine; bp 17:17 Morphine; bp 17:17 PENICILLINS; bp 17:17 Sulfa (Sulfonamide Antibiotics); bp 17:17 Tegretol; bp 17:17 Zantac; bp - Home Meds: 17:17 hydrocortisone 10 mg Oral tab 2 tablets by mouth every morning and 1 tablet every bp evening. [Active]; cinacalcet 30mg Oral 1 tab once daily [Active]; clarithromycin 500 mg Oral tab 1 tab 2 times per day [Active]; duloxetine 60 mg Oral cpDR 1 cap once daily [Active]; Eliquis 2.5 mg Oral tab [Active]; levofloxacin 500 mg Oral tab 1 tab once daily [Active]; liothyronine 5 mcg Oral tab 1 tab once daily [Active]; midodrine 5 mg Oral tab 1 tabs twice a day [Active]; Multaq 400 mg Oral tab [Active]; - PMHx: 17:17 Cutaneous abscess of right lower limb; Diabetes - IDDM; Dialysis; Hypothyroidism; bp - Immunization history:: Adult Immunizations up to date. - Social history:: Smoking status: Patient denies any tobacco usage or history of. Screenin:18 Abuse screen: Denies threats or abuse. Denies injuries from another. Nutritional bp screening: No deficits noted. Tuberculosis screening: No symptoms or risk factors identified. Fall Risk None identified. Assessment: 17:18 General: SEE TRIAGE NOTE. bp 18:36 Reassessment: No changes from previously documented assessment. Patient and/or family bp updated on plan of care and expected duration. Pain level reassessed. ALL CURRENT ORDERS COMPLETED. 19:39 Reassessment: patient doesn't have any complaints at this time. Noted that Blood lh3 Glucose would be checked after fluids are completed. Patient denies pain at this time. Vital Signs: 18:35 BP 120 / 54; Pulse 71; Resp 17; Temp 97.9; Pulse Ox 100% ; bp 19:39 BP 144 / 54; Pulse 64; Resp 18; Pulse Ox 94% on R/A; lh3 21:55 BP 140 / 66; Pulse 66; Resp 18; Pulse Ox 100% on R/A; lh3 ED Course: 17:16 Patient arrived in ED. bp 17:16 Juan Christian NP is PHCP. pm1 17:16 Chris Zuñiga MD is Attending Physician. pm1 17:17 Triage completed. bp 17:17 Arm band placed on. bp 17:18 Patient has correct armband on for positive identification. Bed in low position. Call bp light in reach. Side rails up X2. 17:30 Inserted saline lock: 20 gauge in left EJ, using aseptic technique. Blood collected. bp 17:33 Leo Mott, RN is Primary Nurse. bp 18:41 Notified Nurse Practitioner and/or Physician Candy Dipper Hand of a critical lab result(s), aa5 Glucose 585 and Creatinine 8.68. 18:58 CBC with Diff Sent. bp 18:58 CMP Sent. bp 21:55 Glucose, Ancillary Testing Sent. 3 22:40 IV discontinued, bleeding controlled. 3 22:41 No provider procedures requiring assistance completed. lh3 Administered Medications: 19:29 Drug: Insulin Regular Human 5 units {Co-Signature: [email or web address] (Denise Kelly RN).} Route: df1 IVP; Site: Other; 22:42 Follow up: Response: No adverse reaction 3 19:29 Drug: NS 0.9% 250 ml Route: IV; Rate: bolus; Site: Other; df1 22:41 Follow up: Response: No adverse reaction; IV Status: Completed infusion 3 20:47 Drug: Insulin Regular Human 5 units {Co-Signature: 3 (Denise Kelly RN).} Route: kg IVP; Site: left jugular; 21:56 Follow up: Response: No adverse reaction 3 Outcome: 21:54 Discharge ordered by MD. pm1 22:40 Discharged to home via wheelchair. 3 22:40 Condition: good 22:40 Discharge instructions given to patient, Instructed on discharge instructions, follow up and referral plans. Demonstrated understanding of instructions, follow-up care. 22:41 Patient left the ED. 3 Signatures: Renetta Soto, RN RN aa5 Juan Chrisitan NP COMMUNICATIONS TECHNOLOGIST pm1 Leo Mott RN RN bp Graham, Kristen, RN RN kg Denise Kelly RN RN 3 Gloria Ballard df1 Denise Kelly RN 3 Corrections: (The following items were deleted from the chart) 18:58 18:35 BP 120 / 54; Pulse 71bpm; Resp 17bpm; Pulse Ox 100%; bp bp
[2021-07-04 22:57] VITALS: TEMP 97.9
[2021-07-04 22:59] VITALS: BP 140/66; O2SAT 100
== END 2021-07-04 22:41 | disposition home or self-care (01) ==
LOC: ER 16:59
DX: E11.65 Type 2 diabetes mellitus with hyperglycemia (principal); Z79.01 Long term (current) use of anticoagulants; E03.9 Hypothyroidism, unspecified; Z99.2 Dependence on renal dialysis
CPT/HCPCS: 85025; 36415; 82947 ×2; 80053; 99284; J7050

== ENCOUNTER 2022-07-07 23:01 | Emergency (ER) | payer OTHER, BC ==
--- NOTE | 2022-07-08 01:51 | ER ---
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 jb4 Coronavirus screen: At this time, the client does not indicate any symptoms associated with coronavirus-19. Ebola Screen: No symptoms or risks identified at this time. Initial Sepsis Screen: Does the patient meet any 2 criteria? No. Patient's initial sepsis screen is negative. Does the patient have a suspected source of infection? No. Patient's initial sepsis screen is negative. Risk Assessment: Do you want to hurt yourself or someone else? Patient reports no desire to harm self or others. Onset of symptoms was July 07, 2022. Transition of care: patient was not received from another setting of care. 23:35 Method Of Arrival: EMS: [facility] jb4 23:35 Acuity: ALLA 3 jb4 Historical: - Allergies: 23:41 Alprazolam; jb4 23:41 Aspirin; jb4 23:41 Betadine; jb4 23:41 Codeine; jb4 23:41 Morphine; jb4 23:41 PENICILLINS; jb4 23:41 Sulfa (Sulfonamide Antibiotics); jb4 23:41 Tegretol; jb4 23:41 Zantac; jb4 - Home Meds: 23:41 hydrocortisone 10 mg Oral tab 2 tablets by mouth every morning and 1 tablet every jb4 evening. [Active]; liothyronine 5 mcg Oral tab 1 tab once daily [Active]; Eliquis 2.5 mg Oral tab [Active]; levofloxacin 500 mg Oral tab 1 tab once daily [Active]; cinacalcet 30mg Oral 1 tab once daily [Active]; clarithromycin 500 mg Oral tab 1 tab 2 times per day [Active]; Multaq 400 mg Oral tab [Active]; midodrine 5 mg Oral tab 1 tabs twice a day [Active]; duloxetine 60 mg Oral cpDR 1 cap once daily [Active]; - PMHx: 23:41 Cutaneous abscess of right lower limb; Dialysis; Diabetes - IDDM; Hypothyroidism; jb4 - Immunization history:: Adult Immunizations up to date. - Social history:: Smoking status: Patient denies any tobacco usage or history of. - Family history:: not pertinent. Screenin:42 Abuse screen: Denies threats or abuse. Nutritional screening: No deficits noted. jb4 Tuberculosis screening: No symptoms or risk factors identified. Fall Risk Ambulatory Aid- Crutches/Cane/Walker (15 pts). Assessment: 23:42 General: Appears in no apparent distress. comfortable, Behavior is calm, cooperative, jb4 appropriate for age. Pain: Denies pain. Neuro: Level of Consciousness is awake, alert, obeys commands, Oriented to person, place, time, situation. Cardiovascular: Patient's skin is warm and dry. Respiratory: Airway is patent Respiratory effort is even, unlabored, Respiratory pattern is regular, symmetrical. GI: No signs and/or symptoms were reported involving the gastrointestinal system. : No signs and/or symptoms were reported regarding the genitourinary system. EENT: No signs and/or symptoms were reported regarding the EENT system. Derm: Skin is dry, Skin is normal, Skin temperature is warm Dialysis Fistula oozing blood. Musculoskeletal: Circulation, motion, and sensation intact. Range of motion: intact in all extremities. 07/08 00:30 Reassessment: Patient appears in no apparent distress at this time. Patient and/or jb4 family updated on plan of care and expected duration. Pain level reassessed. Patient is alert, oriented x 3, equal unlabored respirations, skin warm/dry/pink. 01:30 Reassessment: Patient appears in no apparent distress at this time. Patient and/or jb4 family updated on plan of care and expected duration. Pain level reassessed. Patient is alert, oriented x 3, equal unlabored respirations, skin warm/dry/pink. 01:45 Reassessment: Dressing applied to fistula. jb4 02:30 Reassessment: Patient appears in no apparent distress at this time. Patient and/or jb4 family updated on plan of care and expected duration. Pain level reassessed. Patient is alert, oriented x 3, equal unlabored respirations, skin warm/dry/pink. 03:30 Reassessment: Pt resting in bed with eyes closed, respirations are even and unlabored jb4 with no s/s of pain or distress noted. Dressing remains clean, dry , and intact. 04:30 Reassessment: Patient appears in no apparent distress at this time. No changes from jb4 previously documented assessment. Patient and/or family updated on plan of care and expected duration. Pain level reassessed. 05:30 Reassessment: Patient appears in no apparent distress at this time. No changes from jb4 previously documented assessment. Patient and/or family updated on plan of care and expected duration. Pain level reassessed. 05:30 Reassessment: Dressing remains clean, dry, and intact. jb4 06:58 Reassessment: Patient appears in no apparent distress at this time. Patient and/or jb4 family updated on plan of care and expected duration. Pain level reassessed. Patient is alert, oriented x 3, equal unlabored respirations, skin warm/dry/pink. Vital Signs: 07/07 23:35 BP 160 / 66; Pulse 72; Resp 16; Pulse Ox 99% on R/A; jb4 07/08 00:30 BP 152 / 70; Pulse 65; Resp 16; Temp 98.1(TE); Pulse Ox 100% on R/A; jb4 01:30 BP 155 / 72; Pulse 66; Resp 16; Pulse Ox 98% on R/A; jb4 02:30 BP 163 / 73; Pulse 66; Resp 16; Pulse Ox 96% on R/A; jb4 03:30 BP 138 / 51; Pulse 65; Resp 18; Pulse Ox 95% on R/A; jb4 05:00 BP 170 / 97; Pulse 63; Resp 18; Pulse Ox 98% on R/A; jb4 06:30 BP 153 / 82; Pulse 66; Resp 16; Pulse Ox 96% on R/A; jb4 ED Course: 07/07 23:33 Patient arrived in ED. ke1 23:35 Braydon Escobar RN is Primary Nurse. jb4 23:35 Giovanni Griffin MD is Attending Physician. angelito 23:40 Triage completed. jb4 23:41 Arm band placed on right wrist. jb4 23:42 Patient has correct armband on for positive identification. Bed in low position. Call jb4 light in reach. Side rails up X 1. Client placed on continuous cardiac and pulse oximetry monitoring. NIBP monitoring applied. 07/08 00:43 US LE [employer] In Process Unspecified. EDMS 01:49 XRAY Chest (1 view) In Process Unspecified. EDMS 02:22 Inserted saline lock: 24 gauge in right forearm, using aseptic technique. tw5 07:01 No provider procedures requiring assistance completed. Patient transferred, IV remains jb4 in place. Administered Medications: No medications were administered Medication: 07/07 23:42 VIS not applicable for this client. jb4 Outcome: 07/08 01:50 ER care complete, transfer ordered by . angelito 07:01 Transferred by ground EMS to [facility], Transfer form completed. jb4 X-rays sent w/ patient. 07:01 Condition: stable 07:01 Discharge instructions given to patient, Instructed on the need for transfer, Demonstrated understanding of instructions. 07:02 Patient left the ED. jb4 Signatures: Dispatcher [employer] Giovanni Benitez MD MD cha Bryson, James, RN RN jb4 Jazz Alvarez tw5 Patti Garcia, TIARA RN ke1 Corrections: (The following items were deleted from the chart) 02:05 00:30 BP 152 / 70; Pulse 65bpm; Resp 16bpm; Pulse Ox 100% RA; jb4 jb4 07:01 03:30 Reassessment: Pt resting in bed with eyes closed, respirations are even and jb4 unlabored with no s/s of pain or distress noted. jb4
--- NOTE | 2022-07-08 01:51 | EDPHYS ---
Physician Documentation [facility] Name: Mulu Hutson Age: 61 yrs Sex: Female : 1960 Arrival Date: 07/07/2022 Time: 23:33 Bed 6 Private MD: YAQUELIN Physician Giovanni Griffin HPI: 07/08 01:41 This 61 yrs old Black Female presents to ER via EMS with complaints of bleeding at av angelito fistula site. 01:41 The patient presents with pain, that is acute. The complaints affect the lateral aspect angelito of right thigh. Context: The problem was sustained at home, resulted from dialysis puncture. Onset: The symptoms/episode began/occurred 2 week(s) ago. Modifying factors: The symptoms are alleviated by remaining still, the symptoms are aggravated by movement. Associated signs and symptoms: The patient has no apparent associated signs or symptoms. Severity of symptoms: At their worst the symptoms were mild, moderate, in the emergency department the symptoms are actually worse, mildly. The patient has not experienced similar symptoms in the past. Historical: - Allergies: 07/07 23:41 Alprazolam; jb4 23:41 Aspirin; jb4 23:41 Betadine; jb4 23:41 Codeine; jb4 23:41 Morphine; jb4 23:41 PENICILLINS; jb4 23:41 Sulfa (Sulfonamide Antibiotics); jb4 23:41 Tegretol; jb4 23:41 Zantac; jb4 - Home Meds: 23:41 hydrocortisone 10 mg Oral tab 2 tablets by mouth every morning and 1 tablet every jb4 evening. [Active]; liothyronine 5 mcg Oral tab 1 tab once daily [Active]; Eliquis 2.5 mg Oral tab [Active]; levofloxacin 500 mg Oral tab 1 tab once daily [Active]; cinacalcet 30mg Oral 1 tab once daily [Active]; clarithromycin 500 mg Oral tab 1 tab 2 times per day [Active]; Multaq 400 mg Oral tab [Active]; midodrine 5 mg Oral tab 1 tabs twice a day [Active]; duloxetine 60 mg Oral cpDR 1 cap once daily [Active]; - PMHx: 23:41 Cutaneous abscess of right lower limb; Dialysis; Diabetes - IDDM; Hypothyroidism; jb4 - Immunization history:: Adult Immunizations up to date. - Social history:: Smoking status: Patient denies any tobacco usage or history of. - Family history:: not pertinent. ROS: 07/08 01:41 Constitutional: Negative for fever, chills, and weight loss, Eyes: Negative for injury, angelito pain, redness, and discharge, ENT: Negative for injury, pain, and discharge, Neck: Negative for injury, pain, and swelling, Cardiovascular: Negative for chest pain, palpitations, and edema, Respiratory: Negative for shortness of breath, cough, wheezing, and pleuritic chest pain, Abdomen/GI: Negative for abdominal pain, nausea, vomiting, diarrhea, and constipation, Back: Negative for injury and pain, : Negative for injury, bleeding, discharge, and swelling, Skin: Negative for injury, rash, and discoloration, Neuro: Negative for headache, weakness, numbness, tingling, and seizure, Psych: Negative for depression, anxiety, suicide ideation, homicidal ideation, and hallucinations, Allergy/Immunology: Negative for hives, rash, and allergies, Endocrine: Negative for neck swelling, polydipsia, polyuria, polyphagia, and marked weight changes. MS/extremity: Positive for swelling, tenderness, of the lateral aspect of right thigh. Exam: 01:41 Constitutional: This is a well developed, well nourished patient who is awake, alert, angelito and in no acute distress. Head/Face: Normocephalic, atraumatic. Eyes: Pupils equal round and reactive to light, extra-ocular motions intact. Lids and lashes normal. Conjunctiva and sclera are non-icteric and not injected. Cornea within normal limits. Periorbital areas with no swelling, redness, or edema. ENT: Nares patent. No nasal discharge, no septal abnormalities noted. Tympanic membranes are normal and external auditory canals are clear. Oropharynx with no redness, swelling, or masses, exudates, or evidence of obstruction, uvula midline. Mucous membranes moist. Neck: Trachea midline, no thyromegaly or masses palpated, and no cervical lymphadenopathy. Supple, full range of motion without nuchal rigidity, or vertebral point tenderness. No Meningismus. Chest/axilla: Normal chest wall appearance and motion. Nontender with no deformity. No lesions are appreciated. Cardiovascular: Regular rate and rhythm with a normal S1 and S2. No gallops, murmurs, or rubs. Normal PMI, no JVD. No pulse deficits. Respiratory: Lungs have equal breath sounds bilaterally, clear to auscultation and percussion. No rales, rhonchi or wheezes noted. No increased work of breathing, no retractions or nasal flaring. Abdomen/GI: Soft, non-tender, with normal bowel sounds. No distension or tympany. No guarding or rebound. No evidence of tenderness throughout. Back: No spinal tenderness. No costovertebral tenderness. Full range of motion. Skin: Warm, dry with normal turgor. Normal color with no rashes, no lesions, and no evidence of cellulitis. Neuro: Awake and alert, GCS 15, oriented to person, place, time, and situation. Cranial nerves II-XII grossly intact. Motor strength 5/5 in all extremities. Sensory grossly intact. Cerebellar exam normal. Normal gait. Psych: Awake, alert, with orientation to person, place and time. Behavior, mood, and affect are within normal limits. 01:41 Musculoskeletal/extremity: ROM: no acute changes, Circulation is intact in all extremities. Sensation intact. Compartment Syndrome exam of affected extremity: is normal. 01:53 ECG was reviewed by the Attending Physician. [facility] Vital Signs: 07/07 23:35 BP 160 / 66; Pulse 72; Resp 16; Pulse Ox 99% on R/A; jb4 07/08 00:30 BP 152 / 70; Pulse 65; Resp 16; Temp 98.1(TE); Pulse Ox 100% on R/A; jb4 01:30 BP 155 / 72; Pulse 66; Resp 16; Pulse Ox 98% on R/A; jb4 02:30 BP 163 / 73; Pulse 66; Resp 16; Pulse Ox 96% on R/A; jb4 03:30 BP 138 / 51; Pulse 65; Resp 18; Pulse Ox 95% on R/A; jb4 05:00 BP 170 / 97; Pulse 63; Resp 18; Pulse Ox 98% on R/A; jb4 06:30 BP 153 / 82; Pulse 66; Resp 16; Pulse Ox 96% on R/A; jb4 MDM: 07/07 23:35 Patient medically screened. [facility] 07/08 01:45 Data reviewed: vital signs, nurses notes, lab test result(s), EKG, radiologic studies, [facility] doppler, plain films. Data interpreted: job placement specialist: rate is 72 beats/min, rhythm is regular, Pulse oximetry: on room air is 95 %. Test interpretation: by ED physician or midlevel provider: ECG, plain radiologic studies. Counseling: I had a detailed discussion with the patient and/or guardian regarding: the historical points, exam findings, and any diagnostic results supporting the discharge/admit diagnosis, lab results, radiology results, the need to transfer to another facility, for higher level of care, [facility] does not immediately have the required specialist. 07/08 00:16 Order name: Basic Metabolic Panel; Complete Time: 03:20 [facility] 07/08 00:16 Order name: CBC with Diff; Complete Time: 03:20 [facility] 07/08 00:16 Order name: LFT's; Complete Time: 03:20 [facility] 07/08 00:16 Order name: Magnesium; Complete Time: 03:20 [facility] 07/08 00:16 Order name: NT PRO-BNP; Complete Time: 03:20 [facility] 07/08 00:16 Order name: PT-INR; Complete Time: 03:20 [facility] 07/08 00:16 Order name: Troponin HS; Complete Time: 03:20 [facility] 07/08 00:16 Order name: XRAY Chest (1 view) [facility] 07/08 00:16 Order name: EKG; Complete Time: 00:17 [facility] 07/08 00:16 Order name: Cardiac monitoring; Complete Time: 01:45 [facility] 07/08 00:16 Order name: EKG - Nurse/Tech; Complete Time: 01:45 [facility] 07/08 00:16 Order name: IV Saline Lock; Complete Time: 04:48 [facility] 07/08 00:16 Order name: US LE Artery Uni Ltd [facility] 07/08 01:53 Order name: SARS RAPID; Complete Time: 03:20 ds4 07/08 00:16 Order name: Labs collected and sent; Complete Time: 04:48 [facility] 07/08 00:16 Order name: O2 Per Protocol; Complete Time: 01:45 [facility] 07/08 00:16 Order name: O2 Sat Monitoring; Complete Time: 01:45 [facility] 07/08 00:16 Order name: Wound dressing; Complete Time: 01:45 [facility] EC:53 Rate is 65 beats/min. Rhythm is regular. QRS [place] is Normal. [place] interval is normal. QRS angelito interval is normal. QT interval is normal. No Q waves. T waves are Normal. No ST changes noted. Clinical impression: NSR w/ Non-specific ST/T Changes and No evidence of ischemia. Interpreted by me. Reviewed by me. Administered Medications: No medications were administered Disposition Summary: 07/08/22 01:50 Transfer Ordered Transfer Location: [facility] angelito Reason: Higher level of care angelito Condition: Stable angelito Problem: new angelito Symptoms: have improved angelito Accepting Physician: to [facility](07/08/22 07:02) jb4 Diagnosis - End stage renal disease - on hd angelito - Other mechanical complication of surgically created arteriovenous fistula, initial angelito encounter Forms: - Medication Reconciliation Form angelito - SBAR form angelito Signatures: Dispatcher [employer] EDGiovanni Flaherty MD MD cha Bryson, James RN RN jb4 Corrections: (The following items were deleted from the chart) 07:02 01:50 to [facility] angelito [email or web address]
[2022-07-08 02:15] LABS: Absolute Lymphocytes (CBC) 1.4 K/uL (0.7-4.9); Hematocrit 34.7 % (36.0-45.0); Lymphocytes % 16.3 % (15.3-44.8); MCV 88.3 fL (80-100); MPV 8.6 fL (7.6-11.3); Protime INR 1.18; RBC Red Blood Cell Count 3.93 M/uL (3.86-4.86)
[2022-07-08 02:45] LABS: ALT/SGPT 25 U/L (12-78); AST/SGOT 18 U/L (15-37); Albumin 3.1 g/dL (3.4-5.0); Alkaline Phosphatase 139 U/L (45-117); BUN Blood Urea Nitrogen 65 mg/dL (7-18); Bicarbonate 25 mmol/L (21-32); Bilirubin Total 0.3 mg/dL (0.2-1.0); Glomerular Filtration Rate 6 ml/min (=/>90); Glucose Level 228 mg/dL (74-106); Magnesium 2.5 mg/dL (1.8-2.4); NT PRO-BNP 21533 pg/mL (<125); Potassium 4.1 mmol/L (3.5-5.1); Protein, Total 7.1 g/dL (6.4-8.2); Sodium Level 138 mmol/L (136-145)
[2022-07-08 02:49] LABS: Bilirubin Direct < 0.1 mg/dL (0-0.2)
[2022-07-08 02:49] LABS: SARS-CoV-2 Antigen Rapid Res Negative (Negative)
[2022-07-08 02:50] LABS: Troponin High Sensitivity 91.6 pg/mL (<58.9)
--- NOTE | 2022-07-08 21:47 | RAD REPORT ---
EXAM DESCRIPTION: US - Lower Extremity Artery [employer] - 07/08/2022 12:41 am CLINICAL HISTORY: 61 years, Female, PAIN Lower Extremity Artery [employer] COMPARISON: None FINDINGS: Multiple grayscale images and duplex Doppler ultrasound of the right proximal lower extrem ity arterial system was performed with color flow. There is right proximal upper extremity dialysis bypass graft. Imaging demonstrate the presence of a patent arteriovenous bypass graft with minimal peripheral later al hematoma most likely related to site of dialysis punctures. 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 IMPRESSION: Patent right proximal thigh arteriovenous bypass graft with mild peripheral lateral wallace santana most likely related to site of dialysis punctures. Focal area of aneurysmal dilatation with peripheral calcification and/or perhaps air and thrombus fro m most likely at the venous site of the bypass corresponding to patient known aneurysm. No evidence f or significant flow/active bleeding. Electronically signed by: Hayden Rojas MD 07/08/2022 1:19 AM CDT Due to temporary technical issues with the PACS/Fluency reporting system, reports are being signed by the in house radiologists without review as a courtesy to insure prompt reporting. The interpreting radiologist is fully responsible for the content of the report.
--- NOTE | 2022-07-08 22:30 | RAD REPORT ---
EXAM DESCRIPTION: RAD - Chest Single View - 07/08/2022 1:47 am CLINICAL HISTORY: 61 years Female, COUGH COMPARISON: Chest x-ray report from 06/27/2021. The image was unavailable for review. TECHNIQUE: Single portable x-ray view of the chest performed on 07/08/2022 at 1:20 AM FINDINGS: The lungs are well-expanded. There is mild diffuse coarsening of the interstitial lung mar kings. This finding was described previously. This may be due to chronic interstitial lung disease. A n acute infectious or inflammatory process is not entirely excluded. No focal airspace consolidation is identified. The lateral costophrenic sulci are clear. There is no evidence of a pneumothorax. The cardiac silhouette is mildly prominent and may be accentuated by the portable technique. The mediastinal contours are normal. No acute osseous abnormality is identified. No acute soft tissue abnormalities are seen. Lines and tubes: None. Free air: None IMPRESSION: Mild diffuse coarsening of the interstitial lung markings. This finding was described pr eviously. This may be due to chronic interstitial lung disease. An acute infectious or inflammatory p rocess is not entirely excluded. Electronically signed by: Toshia Marin DO 07/08/2022 2:33 AM CDT Due to temporary technical issues with the PACS/Fluency reporting system, reports are being signed by the in house radiologists without review as a courtesy to insure prompt reporting. The interpreting radiologist is fully responsible for the content of the report.
[2022-07-09 17:38] VITALS: TEMP 98.1
[2022-07-09 18:07] VITALS: BP 160/66; O2SAT 99
--- NOTE | 2022-07-12 06:44 | EKG ---
Test Date: 2022-07-08 Test Time: 01:06:37 [employer]: ADDIE MEASUREMENT RESULTS: Intervals: Rate: 65 VA: 174 QRSD: 84 QT: 458 QTc: 476 [place]: P: 62 VA: 174 QRS: 93 T: 87 INTERPRETIVE STATEMENTS: Normal sinus rhythm with sinus arrhythmia Rightward axis Low voltage QRS Borderline ECG Compared to ECG 06/27/2021 19:46:49 Right-axis deviation now present Myocardial infarct finding no longer present Electronically Signed On 07-12-22 06:32:59 CDT by Giovanny Patel
== END 2022-07-08 07:02 | disposition short-term general hospital (02) ==
LOC: ER 23:01
DX: T82.590A Other mechanical complication of surgically created arteriovenous fistula, initial encounter (principal); E11.22 Type 2 diabetes mellitus with diabetic chronic kidney disease; N18.6 End stage renal disease; Z99.2 Dependence on renal dialysis; Z79.01 Long term (current) use of anticoagulants; Z20.822 Contact with and (suspected) exposure to COVID-19
CPT/HCPCS: 36415; 71045; 80048; 80076; 83735; 83880; 84484; 85025; 85610; 87811; 93005; 93926; 99285

== ENCOUNTER 2023-03-16 10:58 | Emergency (ER) | payer OTHER, BC ==
[2023-03-16 12:05] LABS: Absolute Lymphocytes (CBC) 1.2 K/uL (0.7-4.9); Hematocrit 28.5 % (36.0-45.0); Lymphocytes % 10.1 % (15.3-44.8); MCV 89.2 fL (80-100); MPV 8.4 fL (7.6-11.3); RBC Red Blood Cell Count 3.19 M/uL (3.86-4.86)
[2023-03-16 12:24] LABS: Albumin 2.6 g/dL (3.4-5.0); Bilirubin Total 0.5 mg/dL (0.2-1.0); Potassium 4.8 mEq/L (3.5-5.1); Protein, Total 5.8 g/dL (6.4-8.2)
[2023-03-16 12:30] LABS: Protime INR 1.25
--- NOTE | 2023-03-16 14:26 | RAD REPORT ---
EXAM DESCRIPTION: US - Lower Extremity Artery [employer] Ltd - 03/16/2023 2:08 pm CLINICAL HISTORY: SWELLING COMPARISON: Lower Extremity Artery [employer] dated 07/08/2022 TECHNIQUE: Right lower extremity arterial Doppler examination was performed with waveform tracing. FINDINGS: Patent arterial bypass graft along the thigh, throughout its examined segments. Lower resistive waveforms are seen throughout the right common femoral and superficial femoral arteri es, and along the graft. Persistent aneurysmal dilation along the mid thigh segment of the graft, measuring up to 1.4 centimet er in caliber. Improvement of the burden of peripheral mural thrombus, and areas containing punctate echogenicities, which may relate to residua of an incompletely resolved hematoma. The graft is patent throughout this segment, with some turbulent flow visualized. The crescentic residual mural thrombus component measures up to 4 millimeter in thickness. IMPRESSION: Partial interval improvement of the burden of peripheral mural thrombus along the aneury smal segment of the graft along the midthigh. Residual heterogeneous adjacent region with punctate ec hogenicities may relate to small residua of hematoma. Bypass graft is patent throughout. Aneurysmal segment measures up to 1.4 centimeter in greatest calib er.
[2023-03-16] MEDS ORDERED: INSULIN LISPRO 100 UNIT/1 ML ONE (14:29)
[2023-03-16] MEDS ORDERED: NA CHLORIDE 0.9% 250 ML ONE (17:40)
--- NOTE | 2023-03-16 21:03 | EDPHYS ---
Physician Documentation [facility] Name: Mulu Hutson Age: 62 yrs Sex: Female : 1960 Arrival Date: 03/16/2023 Time: 10:58 Bed 3 Private MD: ED Physician Pipe Giron HPI: 03/16 12:06 This 62 yrs old Black Female presents to ER via EMS with complaints of Bleeding From HD bs3 Fistula. 12:06 62-year-old female history of ESRD status post 2 kidney transplants currently on bs3 dialysis has currently being dialyzed from her right femoral region presents with bleeding from her fistula she got dialyzed yesterday and then woke up and developed bleeding today she has no other complaints she denies chest pain or shortness of breath or anything else bothering her denies fevers or chills she does note that her glucose is elevated but that is unchanged from normal. Historical: - Allergies: 11:11 Alprazolam; hb 11:11 Aspirin; hb 11:11 Betadine; hb 11:11 Codeine; hb 11:11 Morphine; hb 11:11 PENICILLINS; hb 11:11 Sulfa (Sulfonamide Antibiotics); hb 11:11 Tegretol; hb 11:11 Zantac; hb - PMHx: 11:11 Cutaneous abscess of right lower limb; Dialysis; Hypothyroidism; Diabetes - IDDM; hb - Immunization history:: Adult Immunizations up to date. - Social history:: Smoking status: Patient denies any tobacco usage or history of. ROS: 12:06 Constitutional: Negative for fever, chills bs3 12:06 All other systems are negative. Exam: 12:06 Constitutional: appears older than stated age, appears tired Head/Face: bs3 Normocephalic, atraumatic. Eyes: Pupils equal round and reactive to light, extra-ocular motions intact. Lids and lashes normal. ENT: mmm, no posterior phyarngeal erythema Neck: Trachea midline, no thyromegaly, no neck stiffness Chest/axilla: Normal chest wall appearance and motion. Nontender with no deformity. No lesions are appreciated. Cardiovascular: Regular rate and rhythm with a normal S1 and S2. symmetric pulses in upper extremities Respiratory: Lungs have equal breath sounds bilaterally, clear to auscultation, no respiratory distress Abdomen/GI: Soft, non-tender, no rebound or guarding Female : Normal external genitalia. No gross blood, rectal exam showed brown stool Skin: she had dried blood on her right lower extremity, no active bleeding. MS/ Extremity: Pulses equal, no cyanosis. Neurovascular intact. Full, normal range of motion. Neuro: Awake and alert, GCS 15, oriented to person, place, time, and situation. Cranial nerves II-XII grossly intact. Motor strength 5/5 in all extremities. Sensory grossly intact. Vital Signs: 11:08 BP 88 / 52; Pulse 72; Resp 15; Temp 98; Pulse Ox 98% on R/A; Weight 87 kg; Height 5 ft. hb 3 in. ; Pain 0/10; 12:53 BP 90 / 58; Pulse 110; Resp 16; Pulse Ox 99% on R/A; ld1 14:09 BP 86 / 61; Pulse 108; Resp 17; Pulse Ox 95% ; hb 15:37 BP 79 / 51; Pulse 95; Resp 18; Pulse Ox 100% on R/A; ld1 16:30 BP 93 / 61; Pulse 104; Resp 17; Pulse Ox 90% on R/A; ld1 17:00 BP 85 / 52; Pulse 111; Resp 17; Pulse Ox 99% on R/A; ld1 18:00 BP 84 / 56; Pulse 105; Resp 15; Temp 97.8(TE); Pulse Ox 100% on R/A; Pain 0/10; hb 18:36 BP 97 / 64; Pulse 97; Resp 16; Pulse Ox 99% on R/A; ld1 19:15 BP 116 / 61; Pulse 96; Resp 19 S; Temp 97.5; Pulse Ox 96% on R/A; ha1 20:00 BP 113 / 69; Pulse 92; Resp 19; Pulse Ox 99% on R/A; ha1 21:00 BP 112 / 68; Pulse 94; Resp 18 S; Pulse Ox 98% on R/A; ha1 21:55 BP 118 / 70; Pulse 100; Resp 17; Pulse Ox 96% on R/A; ll3 11:08 Body Mass Index 33.98 (87.00 kg, 160.02 cm) hb 11:08 Pain Scale: Adult hb 18:00 Pain Scale: Adult hb MDM: 11:05 Patient medically screened. bs3 12:06 Data reviewed: vital signs, nurses notes. ED course: I reviewed the pictures from EMS bs3 she likely lost 15% or more of her blood volume therefore given her hypotension will transfuse we will hold Eliquis we will plan to admit Will evaluate for electrolyte abnormality infectious process. ED course: EKG is normal sinus rhythm at 69 she has a prolonged QT at [address] elevations or depressions as interpreted by myself. 12:40 ED course: hgb is <9, likely still going to take time to equivalibrate, given bs3 hypotension and sig bleeding, will transfuse. . 13:27 ED course: d/w her stabilizing machine operator who rec observation here for blood then dc, and can bs3 resume dialysis tomorrow, he wanted to r/o a pseudoaneurysm which we will do. 20:00 Transition of care: Care assumed from Los Murillo MD. ms3 21:02 Differential diagnosis: Anemia vs AV fistula pseudoaneurysm. Management of patient was ms3 discussed with the following: Oracle Adf Developer: Patient's stabilizing machine operator saw patient and cleared for DC. I considered the following discharge prescriptions or medication management in the emergency department Medications were administered in the Emergency Department. See MAR. Counseling: I had a detailed discussion with the patient and/or guardian regarding: the historical points, exam findings, and any diagnostic results supporting the discharge/admit diagnosis, lab results, radiology results, the need for outpatient follow up, to return to the emergency department if symptoms worsen or persist or if there are any questions or concerns that arise at home. Response to treatment: the patient's symptoms have resolved after treatment, and as a result, I will discharge patient. 03/16 11:05 Order name: CBC with Diff; Complete Time: 12:28 [facility] 03/16 12:44 Interpretation: HGB 8.8. 3 03/16 11:05 Order name: Comprehensive Metabolic Panel; Complete Time: 12:28 3 03/16 12:46 Interpretation: Abnormal. [facility] 03/16 11:05 Order name: Type And Screen [facility] 03/16 11:05 Order name: Ptt, Activated; Complete Time: 12:43 3 03/16 11:05 Order name: PT-INR; Complete Time: 12:43 [facility] 03/16 14:33 Order name: Packed RBC Leukored EDIL 03/16 15:02 Order name: ABO/RH no charge; Complete Time: 21:20 EDMS 03/16 15:32 Order name: Glucose, Ancillary Testing; Complete Time: 21:20 EDMS 03/16 13:16 Order name: US Lower Extremity Artery Uni Ltd: eval for pseudaneurysm; Complete Time: bs3 14:31 03/16 11:05 Order name: EKG - Nurse/Tech; Complete Time: 12:53 bs3 03/16 12:08 Order name: Labs - recollect needed: collect aborh no charge; Complete Time: 13:09 eb 03/16 14:51 Order name: Glucose Level; Complete Time: 15:20 bs3 Administered Medications: 12:55 CANCELLED (Duplicate Order): Insulin Regular Human Sub-Q 10 units Sub-Q once bs3 14:23 Drug: Insulin Lispro Sub-Q 20 units Route: Sub-Q; Site: right lower abdomen; ld1 Disposition Summary: 03/16/23 21:02 Discharge Ordered Location: Home ms3 Condition: Stable ms3 Diagnosis - AV fistula bleed ms3 - Anemia ms3 - AV graft bleed ms3 Followup: ms3 - With: Private Physician - When: 1 - 2 days - Reason: Recheck today's complaints Discharge Instructions: - Discharge Summary Sheet ms3 Forms: - Medication Reconciliation Form ms3 - Thank You Letter ms3 - Antibiotic Education ms3 - Prescription Opioid Use ms3 Critical care time excluding procedures: 15:11 Critical care time: Bedside Care: 35 minutes. Total time: 35 minutes bs3 Signatures: Dispatcher [employer] EDIL Akua Bradford RN RN Stephany Beebe Pipe Giron DO DO ms3 Hanna Giron RN RN ld1 Los Murillo MD MD bs3 Corrections: (The following items were deleted from the chart) 12:55 12:46 Insulin Regular Human Sub-Q 10 units Sub-Q once ordered. bs3 bs3
--- NOTE | 2023-03-16 21:03 | ER ---
Nurse's Notes [facility] Name: Mulu Hutson Age: 62 yrs Sex: Female : 1960 Arrival Date: 03/16/2023 Time: 10:58 Bed 3 Private MD: Diagnosis: AV fistula bleed;Anemia;AV graft bleed Presentation: 03/16 11:08 Chief complaint: EMS states: Bleeding from right thigh HD fistula this morning, hb oriented x 4, lethargic, BP 80 palp, NS infusing to right shoulder IO, bleeding controlled. Coronavirus screen: At this time, the client does not indicate any symptoms associated with coronavirus-19. Ebola Screen: No symptoms or risks identified at this time. Initial Sepsis Screen: Does the patient meet any 2 criteria? No. Patient's initial sepsis screen is negative. Does the patient have a suspected source of infection? No. Patient's initial sepsis screen is negative. Risk Assessment: Do you want to hurt yourself or someone else? Patient reports no desire to harm self or others. Onset of symptoms was March 16, 2023. 11:08 Method Of Arrival: EMS: [facility] hb 11:08 Acuity: ALLA 2 hb Triage Assessment: 11:12 General: Appears in no apparent distress. Behavior is calm, cooperative. Pain: Denies hb pain. EENT: No signs and/or symptoms were reported regarding the EENT system. Neuro: Level of Consciousness is awake, obeys commands, lethargic, Oriented to person, place, time, situation. Cardiovascular: Patient's skin is warm and dry. Rhythm is regular. Respiratory: Respiratory effort is even, unlabored, Respiratory pattern is regular, symmetrical. GI: No signs and/or symptoms were reported involving the gastrointestinal system. : No signs and/or symptoms were reported regarding the genitourinary system. Derm: Skin is pink, warm \T\ dry. Musculoskeletal: No signs and/or symptoms reported regarding the musculoskeletal system. Historical: - Allergies: 11:11 Alprazolam; hb 11:11 Aspirin; hb 11:11 Betadine; hb 11:11 Codeine; hb 11:11 Morphine; hb 11:11 PENICILLINS; hb 11:11 Sulfa (Sulfonamide Antibiotics); hb 11:11 Tegretol; hb 11:11 Zantac; hb - PMHx: 11:11 Cutaneous abscess of right lower limb; Dialysis; Hypothyroidism; Diabetes - IDDM; hb - Immunization history:: Adult Immunizations up to date. - Social history:: Smoking status: Patient denies any tobacco usage or history of. Screenin:12 [facility] ED Fall Risk Assessment (Adult) Score/Fall Risk Level 3 or more points = High hb Risk Oriented to surroundings, Maintained a safe environment, Educated pt \T\ family on fall prevention, incl call for assistance when getting out of bed. Abuse screen: Denies threats or abuse. Denies injuries from another. Nutritional screening: No deficits noted. Tuberculosis screening: No symptoms or risk factors identified. Assessment: 11:12 General: See triage assessment.. hb 13:00 Reassessment: Patient appears in no apparent distress at this time. No changes from ld1 previously documented assessment. Patient and/or family updated on plan of care and expected duration. Pain level reassessed. Patient is alert, oriented x 3, equal unlabored respirations, skin warm/dry/pink. 14:00 Reassessment: Patient appears in no apparent distress at this time. No changes from ld1 previously documented assessment. 15:00 Reassessment: Patient appears in no apparent distress at this time. No changes from ld1 previously documented assessment. Patient and/or family updated on plan of care and expected duration. Pain level reassessed. 16:30 Reassessment: No changes from previously documented assessment. Patient and/or family ld1 updated on plan of care and expected duration. Pain level reassessed. Patient denies pain at this time. 17:11 Reassessment: No changes from previously documented assessment. Patient and/or family ld1 updated on plan of care and expected duration. Pain level reassessed. 18:35 Reassessment: Fist unit PRBCs started, see transfusion flowsheet. Pt AOx4, talkative, hb on phone with family at this time. 19:15 General: Appears comfortable, Behavior is calm, cooperative. Pain: Denies pain. Neuro: ha1 Level of Consciousness is awake, alert, obeys commands, Oriented to person, place, time, situation. Cardiovascular: Capillary refill < 3 seconds Patient's skin is warm and dry. Respiratory: Airway is patent Respiratory effort is even, unlabored, Respiratory pattern is regular, symmetrical. GI: No signs and/or symptoms were reported involving the gastrointestinal system. : No signs and/or symptoms were reported regarding the genitourinary system. Musculoskeletal: Circulation, motion, and sensation intact. 19:15 Reassessment: Inspection of fistula site was done with TIARA Fatima. Site is clean and ha1 dry. No bleeding noticed. 20:00 Reassessment: Patient and/or family updated on plan of care and expected duration. Pain ha1 level reassessed. Patient is alert, oriented x 3, equal unlabored respirations, skin warm/dry/pink. 21:00 Reassessment: Patient and/or family updated on plan of care and expected duration. Pain ha1 level reassessed. Patient is alert, oriented x 3, equal unlabored respirations, skin warm/dry/pink. Patient denies pain at this time. Vital Signs: 11:08 BP 88 / 52; Pulse 72; Resp 15; Temp 98; Pulse Ox 98% on R/A; Weight 87 kg; Height 5 ft. hb 3 in. ; Pain 0/10; 12:53 BP 90 / 58; Pulse 110; Resp 16; Pulse Ox 99% on R/A; ld1 14:09 BP 86 / 61; Pulse 108; Resp 17; Pulse Ox 95% ; hb 15:37 BP 79 / 51; Pulse 95; Resp 18; Pulse Ox 100% on R/A; ld1 16:30 BP 93 / 61; Pulse 104; Resp 17; Pulse Ox 90% on R/A; ld1 17:00 BP 85 / 52; Pulse 111; Resp 17; Pulse Ox 99% on R/A; ld1 18:00 BP 84 / 56; Pulse 105; Resp 15; Temp 97.8(TE); Pulse Ox 100% on R/A; Pain 0/10; hb 18:36 BP 97 / 64; Pulse 97; Resp 16; Pulse Ox 99% on R/A; ld1 19:15 BP 116 / 61; Pulse 96; Resp 19 S; Temp 97.5; Pulse Ox 96% on R/A; ha1 20:00 BP 113 / 69; Pulse 92; Resp 19; Pulse Ox 99% on R/A; ha1 21:00 BP 112 / 68; Pulse 94; Resp 18 S; Pulse Ox 98% on R/A; ha1 21:55 BP 118 / 70; Pulse 100; Resp 17; Pulse Ox 96% on R/A; ll3 11:08 Body Mass Index 33.98 (87.00 kg, 160.02 cm) hb 11:08 Pain Scale: Adult hb 18:00 Pain Scale: Adult hb ED Course: 10:59 Patient arrived in ED. am2 11:04 Los Murillo MD is Attending Physician. bs3 11:11 Triage completed. hb 11:12 Arm band placed on. hb 12:30 Patient has correct armband on for positive identification. Placed in gown. Bed in low ld1 position. Call light in reach. Side rails up X2. bouffant curtain machine tender on. Pulse ox on. NIBP on. Door closed. Noise minimized. Warm blanket given. 12:30 No provider procedures requiring assistance completed. Inserted saline lock: 20 gauge ld1 in left EJ, using aseptic technique. 14:10 Lower Extremity Artery Uni Ltd: eval for pseudaneurysm In Process Unspecified. EDMS 19:00 Akua Bradford RN is Primary Nurse. hb 20:16 Attending Physician role handed off by Los Murillo MD ms3 20:16 Pipe Giron DO is Attending Physician. ms3 21:54 IV discontinued, intact, bleeding controlled, No redness/swelling at site. Pressure ll3 dressing applied. Administered Medications: 12:55 CANCELLED (Duplicate Order): Insulin Regular Human Sub-Q 10 units Sub-Q once bs3 14:23 Drug: Insulin Lispro Sub-Q 20 units Route: Sub-Q; Site: right lower abdomen; ld1 Medication: 11:12 VIS not applicable for this client. hb Outcome: 21:02 Discharge ordered by . ms3 21:54 Discharged to home via wheelchair, with family. ll3 21:54 Condition: stable 21:54 Discharge instructions given to patient, Instructed on discharge instructions, follow up and referral plans. Demonstrated understanding of instructions, follow-up care. 21:55 Patient left the ED. ll3 Signatures: Dispatcher [employer] EDMS Akua Bradford RN RN Cat Golden am2 Pipe Giron DO DO ms3 Hanna Giron RN RN ld1 Ila Staton RN RN ll3 Niyah Milligan RN RN ha1 Los Murillo MD MD bs3 Corrections: (The following items were deleted from the chart) 14:17 14:09 Pulse 108bpm; Resp 17bpm; Pulse Ox 95%; hb hb 18:36 18:35 Reassessment: Fist unit PRBCs started, see transfusion flowsheet. hb hb
[2023-03-16 22:41] VITALS: TEMP 97.5
[2023-03-16 22:45] VITALS: BP 118/70; O2SAT 96
== END 2023-03-16 21:55 | disposition home or self-care (01) ==
LOC: ER 10:58
PROC: 30233N1 Transfusion of Nonautologous Red Blood Cells into Peripheral Vein, Percutaneous Approach (ICD-10-PCS; principal; 2023-03-16)
DX: D64.9 Anemia, unspecified (principal); E11.22 Type 2 diabetes mellitus with diabetic chronic kidney disease; N18.6 End stage renal disease; Z99.2 Dependence on renal dialysis; Z94.0 Kidney transplant status; Z88.0 Allergy status to penicillin; Z88.2 Allergy status to sulfonamides; Z88.3 Allergy status to other anti-infective agents; Z88.5 Allergy status to narcotic agent; Z88.6 Allergy status to analgesic agent
CPT/HCPCS: 85025; 36415; 86900; 86850; 85610; 86901; 82947; 85730; 86920; 80053; 93926; 96372; 99285; 36430; J1815; P9016; J7050

== ENCOUNTER 2023-03-17 01:01 | Emergency (ER) | payer OTHER, BC ==
[2023-03-17] MEDS ORDERED: Calcium Chloride 10% INJ SYR IV ONE ×2 (01:02)
[2023-03-17] MEDS ORDERED: EPINEPHrine 1 MG/10 ML SYR IV ONE (01:02)
--- NOTE | 2023-03-17 01:48 | EDPHYS ---
Physician Documentation [facility] Name: Mulu Hutson Age: 62 yrs Sex: Female : 1960 Arrival Date: 03/17/2023 Time: 01:01 Bed 4 Private MD: ED Physician Pipe Giron HPI: 03/17 01:47 This 62 yrs old Black Female presents to ER via Unassigned with complaints of ms3 Unresponsive, AV Graft hemorrhage. 01:47 62-year-old female with past medical history of end-stage renal disease presents via ms3 [facility] in cardiac arrest status post AV graft hemorrhage. On EMS arrival patient with bleeding in the right thigh. EMS notes patient was alert on their arrival. Patient then deteriorated into pulselessness and CPR was started. EMS placed IO in proximal left tibia.. Historical: - Allergies: 01:05 Alprazolam; pf1 01:05 Aspirin; pf1 01:05 Betadine; pf1 01:05 Codeine; pf1 01:05 Morphine; pf1 01:05 PENICILLINS; pf1 01:05 Sulfa (Sulfonamide Antibiotics); pf1 01:05 Tegretol; pf1 01:05 Zantac; pf1 - PMHx: 01:05 Cutaneous abscess of right lower limb; Diabetes - IDDM; Dialysis; Hypothyroidism; pf1 - Immunization history:: patient unresponsive. - Social history:: unresponsive. ROS: 01:47 Unable to obtain ROS due to CPR in progress. ms3 Exam: 01:47 Head/Face: Normocephalic, atraumatic. ms3 01:47 Chest/axilla: Normal chest wall appearance and motion. Nontender with no deformity. 01:47 Neck: Trachea midline, no cervical lymphadenopathy. Supple, full range of motion without nuchal rigidity, or vertebral point tenderness. No Meningismus. 01:47 Constitutional: The patient appears listless, obese. 01:47 Eyes: Pupils: are fixed and dilated. 01:47 Cardiovascular: Rhythm: Pulses: not palpable. 01:47 Respiratory: iGel in place being bagged. 01:47 Abdomen/GI: Inspection: obese Palpation: soft, mass, is not appreciated. 01:47 Musculoskeletal/extremity: Tourniquet on right thigh with hemostasis. . 01:47 Skin: Appearance: Color: pale, Temperature: warm. Vital Signs: 01:01 Weight 71 kg; pf1 Procedures: 01:47 CPR: See CPR flow sheet. ms3 01:47 Intubation: Intubated orally using Glidescope blade 4 with 7.5 mm ETT. was successful ms3 on first attempt. Ventilated with Ambu bag. Tube secured with ETT raya measured 23 cm at lip. MDM: 01:24 Patient medically screened. ms3 01:47 Differential Diagnosis Hemorrhage vs Hyperkalemia vs Cardiac Arrest. Data reviewed: ms3 vital signs. I considered the following discharge prescriptions or medication management in the emergency department Medications were administered in the Emergency Department. See MAR. Historians other than the Patient: EMS: [facility]. 03/17 01:14 Order name: RBC Leukored Pheresis EDOK 03/17 01:14 Order name: RBC Leukoreduced (Pheresis 2) EDOK 03/17 01:25 Order name: Frozen Plasma 24 Thawed EDMS Administered Medications: 01:02 Drug: EPINEPHrine 1:10,000 IVP 1 mg Route: IVP; Site: Other; pf1 01:30 Follow up: Response: No change in condition pf1 01:06 Drug: EPINEPHrine 1:10,000 IVP 1 mg Route: IVP; Site: Other; pf1 01:30 Follow up: Response: No change in condition pf1 01:09 Drug: EPINEPHrine 1:10,000 IVP 1 mg Route: IVP; Site: Other; pf1 01:30 Follow up: Response: No change in condition pf1 01:12 Drug: EPINEPHrine 1:10,000 IVP 1 mg Route: IVP; Site: Other; pf1 01:30 Follow up: Response: No change in condition pf1 01:15 Drug: Calcium Chloride IVP 1 grams Route: IVP; Site: Other; pf1 01:30 Follow up: Response: No change in condition pf1 01:18 Drug: EPINEPHrine 1:10,000 IVP 1 mg Route: IVP; Site: Other; pf1 06:16 Follow up: Response: No change in condition pf1 01:24 Drug: EPINEPHrine 1:10,000 IVP 1 mg Route: IVP; Site: Other; pf1 01:30 Follow up: Response: No change in condition pf1 01:29 Drug: EPINEPHrine 1:10,000 IVP 1 mg Route: IVP; Site: Other; pf1 01:30 Follow up: Response: No change in condition pf1 Disposition: 01:47 Chart complete. ms3 Disposition Summary: 03/17/23 01:47 Patient Location: Simulation Engineer ms3 Pronouncing Physician: Pipe Giron ms3 Time of : 01:32 03/17/2023 ms3 Diagnosis - Cardiac arrest due to other underlying condition ms3 - AV Graft Hemorrhage ms3 Signatures: Dispatcher [employer] EDMS Pipe Giron, DO DO ms3 Alana Chahal RN RN pf1 Corrections: (The following items were deleted from the chart) 01:49 01:14 ABO/RH typing ordered. EDMS EDMS 01:49 01:14 Antibody Screen ordered. EDMS EDMS 04:52 01:47 Intubation: Intubated orally using Glidescope blade 4 with 7.5 mm ETT. was ms3 successful on first attempt. Ventilated with Ambu bag. Tube secured with ETT raya ms3
--- NOTE | 2023-03-17 06:28 | ER ---
Nurse's Notes [facility] Name: Mulu Hutson Age: 62 yrs Sex: Female : 1960 Arrival Date: 03/17/2023 Time: 01:01 Bed 4 Private MD: Diagnosis: Cardiac arrest due to other underlying condition;AV Graft Hemorrhage Presentation: 03/17 01:01 Chief complaint: EMS states: [facility] arrived with CPR in progress, ambu bagging pf1 patient, EMS stated patient was found bleeding profusely from her dialysis graft to right upper leg, EMS has a tourniquet placed to right upper leg and IO placed to left lower extremity. EMS stated patient went unresponsive and not breathing at 0045 and gave 1 epi DIRECTOR OF RESEARCH AND DEVELOPMENT. 01:01 Ebola Screen: Unable to complete the Ebola screening because: Patient is unresponsive. pf1 Initial Sepsis Screen: Does the patient meet any 2 criteria? No. Patient's initial sepsis screen is negative. Does the patient have a suspected source of infection? No. Patient's initial sepsis screen is negative. Risk Assessment: Do you want to hurt yourself or someone else? Unable to obtain. 01:01 Method Of Arrival: EMS: [facility] pf1 01:01 Acuity: ALLA 1 pf1 Historical: - Allergies: 01:05 Alprazolam; pf1 01:05 Aspirin; pf1 01:05 Betadine; pf1 01:05 Codeine; pf1 01:05 Morphine; pf1 01:05 PENICILLINS; pf1 01:05 Sulfa (Sulfonamide Antibiotics); pf1 01:05 Tegretol; pf1 01:05 Zantac; pf1 - PMHx: 01:05 Cutaneous abscess of right lower limb; Diabetes - IDDM; Dialysis; Hypothyroidism; pf1 - Immunization history:: patient unresponsive. - Social history:: unresponsive. Screenin:05 Nutritional screening: patient unresponsive. pf1 01:05 Abuse screen: patient unresponsive. Tuberculosis screening: patient unresponsive. pf1 Assessment: 01:05 General: Rapid blood transfusion started. ll3 01:31 General: FFP started. ll3 01:32 Reassessment: Patient's time of called at [address] Giron. pf1 06:17 Reassessment: Pt picked up by [facility], all paper work signed by judge Whittaker. ll3 Vital Signs: 01:01 Weight 71 kg; pf1 Vitals: 01:05 Cardiac Rhythm Assessment PEA. ll3 01:08 Cardiac Rhythm Assessment PEA. ll3 01:11 Cardiac Rhythm Assessment PEA. ll3 01:14 Cardiac Rhythm Assessment PEA. ll3 01:17 Cardiac Rhythm Assessment PEA. ll3 01:23 Cardiac Rhythm Assessment PEA. ll3 01:27 Cardiac Rhythm Assessment PEA. ll3 01:31 Cardiac Rhythm Assessment [place]. ll3 ED Course: 01:01 Maintain EMS IV. Dressing intact. Good blood return noted. Site clean \T\ dry. Gauge \T\ ll 3 site: IO to left lower leg. 01:05 Patient unresponsive. pf1 01:10 Assisted provider with intubation using 7.5 mm ETT via oral route. ET tube secured at ll3 23cm at the lips. Set up intubation tray. Intubated by Pipe Giron DO. Assist ventilation with Ambu bag. 01:12 Patient arrived in ED. [id number] 01:24 Pipe Giron DO is Attending Physician. ms3 01:45 Pipe Giron DO is Pronouncing Provider. ms3 05:07 Triage completed. pf1 Administered Medications: 01:02 Drug: EPINEPHrine 1:10,000 IVP 1 mg Route: IVP; Site: Other; pf1 01:30 Follow up: Response: No change in condition pf1 01:06 Drug: EPINEPHrine 1:10,000 IVP 1 mg Route: IVP; Site: Other; pf1 01:30 Follow up: Response: No change in condition pf1 01:09 Drug: EPINEPHrine 1:10,000 IVP 1 mg Route: IVP; Site: Other; pf1 01:30 Follow up: Response: No change in condition pf1 01:12 Drug: EPINEPHrine 1:10,000 IVP 1 mg Route: IVP; Site: Other; pf1 01:30 Follow up: Response: No change in condition pf1 01:15 Drug: Calcium Chloride IVP 1 grams Route: IVP; Site: Other; pf1 01:30 Follow up: Response: No change in condition pf1 01:18 Drug: EPINEPHrine 1:10,000 IVP 1 mg Route: IVP; Site: Other; pf1 06:16 Follow up: Response: No change in condition pf1 01:24 Drug: EPINEPHrine 1:10,000 IVP 1 mg Route: IVP; Site: Other; pf1 01:30 Follow up: Response: No change in condition pf1 01:29 Drug: EPINEPHrine 1:10,000 IVP 1 mg Route: IVP; Site: Other; pf1 01:30 Follow up: Response: No change in condition pf1 Outcome: 06:27 Patient left the ED. 3 Signatures: Pipe Giron DO DO ms3 Arin Clemons jj6 Ila Staton RN RN 3 Niyah Milligan RN RN 1 Alana Chahal RN RN pf1 Corrections: (The following items were deleted from the chart) 03:26 03:25 Chief complaint: ha1 ha1 05:30 01:06 Calcium Chloride IVP 1 grams IVP in Other pf1 pf1
== END 2023-03-17 06:27 ==
LOC: ER 01:01
PROC: 30233K1 Transfusion of Nonautologous Frozen Plasma into Peripheral Vein, Percutaneous Approach (ICD-10-PCS; principal; 2023-03-17)
PROC: 30233N1 Transfusion of Nonautologous Red Blood Cells into Peripheral Vein, Percutaneous Approach (ICD-10-PCS; 2023-03-17)
DX: T82.838A Hemorrhage due to vascular prosthetic devices, implants and grafts, initial encounter (principal); I46.8 Cardiac arrest due to other underlying condition; E11.9 Type 2 diabetes mellitus without complications; Z99.2 Dependence on renal dialysis; Z88.0 Allergy status to penicillin; Z88.2 Allergy status to sulfonamides; Z88.5 Allergy status to narcotic agent; Z88.6 Allergy status to analgesic agent; Z88.8 Allergy status to other drugs, medicaments and biological substances
CPT/HCPCS: 31500; 96375; 96374; 92950; 99291; 36430; J0171; P9016 ×2; P9059